=== PATIENT | female | born 1960 | race African-American/Black ===

== ENCOUNTER → 2016-12-06 | Outpatient (CLI) | payer BC ==
[2016-12-06 07:40] LABS: HEMATOCRIT 36.9 % (36.0-47.0); HEMOGLOBIN 12.6 g/dL (12.0-15.5); HGB HCT DIFFERENCE 0.9; MEAN CORPUSCULAR HEMOGLOBIN 29.6 pg (27.0-33.4); MEAN CORPUSCULAR HGB CONC 34.3 g/dL (32.0-36.0); MEAN CORPUSCULAR VOLUME 86 fl (80-97); RED BLOOD COUNT 4.26 10^6/uL (3.72-5.28); RED CELL DISTRIBUTION WIDTH 12.4 % (11.5-14.0); WHITE BLOOD COUNT 6.6 10^3/uL (4.0-10.5)
[2016-12-06 07:57] LABS: ANION GAP 12 (5-19); BLOOD UREA NITROGEN 37 mg/dL (7-20); CALCIUM 9.2 mg/dL (8.4-10.2); CARBON DIOXIDE 30 mmol/L (22-30); CHLORIDE 95 mmol/L (98-107); CREATININE RESULT 1.81 mg/dL (0.52-1.25); POTASSIUM 4.3 mmol/L (3.6-5.0); SODIUM 136.8 mmol/L (137-145)
[2016-12-06 07:58] LABS: APPEARANCE,URINE SLIGHTLY-CLOUDY; BILIRUBIN,URINE NEGATIVE (NEGATIVE); GLUCOSE, URINE 150 mg/dL (NEGATIVE); KETONES,URINE NEGATIVE (NEGATIVE); LEUKOCYTE ESTERASE,URINE TRACE (NEGATIVE); NITRITE,URINE NEGATIVE (NEGATIVE); PROTEIN,URINE 100 mg/dL (NEGATIVE); URINE SPECIFIC GRAVITY 1.012; UROBILINOGEN,URINE NEGATIVE mg/dL (<2.0)
[2016-12-06 08:36] LABS: GLUCOSE 457 mg/dL (75-110)
== END ==
LOC: OD 07:21
PROVIDERS: ATTEND Internal Medicine Nephrology
DX: I12.9 Hypertensive chronic kidney disease with stage 1 through stage 4 chronic kidney disease, or unspecified chronic kidney disease (principal); N18.3 Chronic kidney disease, stage 3 (moderate); E11.22 Type 2 diabetes mellitus with diabetic chronic kidney disease
CPT/HCPCS: 36415; 80048; 81001; 85027

== ENCOUNTER 2016-12-19 12:04 | Emergency (ER) | payer BC ==
--- NOTE | 2016-12-19 12:14 | ER Document Report ---
ED Medical Screen (RME) - General Chief Complaint: High Blood Sugar Stated Complaint: NAUSEA Time seen by provider: 12:13 Mode of Arrival: Ambulatory Information source: Patient Notes: 56-year-old female presents to ED for elevated blood sugar states she's not sure if it's her machine. She is having nausea vomiting for the last 2 days. Type II diabetic. States she's not on insulin. States they changed her medicine because her BUN/creatinine were going up. I have greeted and performed a rapid initial assessment of this patient. A comprehensive ED assessment and evaluation of the patient, analysis of test results and completion of medical decision making process will be conducted by an additional ED providers. TRAVEL OUTSIDE OF THE [place] IN LAST 30 DAYS: No - Related Data Allergies/Adverse Reactions: No Known Allergies Allergy (Unverified 03/11/13 15:59)
[2016-12-19] MEDS ORDERED: ONDANSETRON 4 MG TAB.RAPDIS PO ONE (12:15)
[2016-12-19 13:02] LABS: APPEARANCE,URINE CLOUDY; BILIRUBIN,URINE NEGATIVE (NEGATIVE); GLUCOSE, URINE NEGATIVE (NEGATIVE); KETONES,URINE NEGATIVE (NEGATIVE); LEUKOCYTE ESTERASE,URINE MODERATE (NEGATIVE); NITRITE,URINE NEGATIVE (NEGATIVE); PROTEIN,URINE 100 mg/dL (NEGATIVE); URINE SPECIFIC GRAVITY 1.014; UROBILINOGEN,URINE NEGATIVE mg/dL (<2.0)
[2016-12-19 13:07] LABS: ABSOLUTE EOSINOPHILS # (AUTO) 0.3 10^3/uL (0.0-0.6); ABSOLUTE LYMPHOCYTES (AUTO) 1.4 10^3/uL (0.5-4.7); ABSOLUTE MONOCYTES (AUTO) 0.6 10^3/uL (0.1-1.4); ABSOLUTE NEUT (AUTO) 5.5 10^3/uL (1.7-8.2); BASOPHILS % (AUTO) 0.5 % (0-2); EOSINOPHILS % (AUTO) 4.2 % (0-6); HEMATOCRIT 39.4 % (36.0-47.0); HEMOGLOBIN 13.1 g/dL (12.0-15.5); HGB HCT DIFFERENCE -0.1; MEAN CORPUSCULAR HEMOGLOBIN 29.3 pg (27.0-33.4); MEAN CORPUSCULAR HGB CONC 33.1 g/dL (32.0-36.0); MEAN CORPUSCULAR VOLUME 89 fl (80-97); MONOCYTES % (AUTO) 8.1 % (3-13); RED BLOOD COUNT 4.45 10^6/uL (3.72-5.28); RED CELL DISTRIBUTION WIDTH 12.9 % (11.5-14.0); SEGMENTED NEUTROPHILS % (AUTO) 69.2 % (42-78); WHITE BLOOD COUNT 7.9 10^3/uL (4.0-10.5)
[2016-12-19 13:23] LABS: ALANINE AMINOTRANSFERASE 25 U/L (9-52); ALBUMIN 4.3 g/dL (3.5-5.0); ALKALINE PHOSPHATASE 120 U/L (38-126); ANION GAP 15 (5-19); ASPARTATE AMINO TRANSFERASE 25 U/L (14-36); BILIRUBIN,TOTAL 0.5 mg/dL (0.2-1.3); BLOOD UREA NITROGEN 34 mg/dL (7-20); CARBON DIOXIDE 22 mmol/L (22-30); CHLORIDE 103 mmol/L (98-107); CREATININE RESULT 2.11 mg/dL (0.52-1.25); GLUCOSE 267 mg/dL (75-110); POTASSIUM 5.3 mmol/L (3.6-5.0); SODIUM 140.2 mmol/L (137-145); TOTAL PROTEIN 7.1 g/dL (6.3-8.2)
[2016-12-19] MEDS ORDERED: NORMAL SALINE 1000 ML 1,000 ML IV ONE (13:54)
--- NOTE | 2016-12-19 14:15 | ER Document Report ---
[id number] Mode of Arrival: Ambulatory Information source: Patient Notes: 56 yr old female presents with compaints of sins pressure ,headache ,nasal drainaged which is causing her ot be nauseated. pt denies any fevers or chills, states she gets theses symptoms yearly and improved with antibiotics for acute sinusitis TRAVEL OUTSIDE OF THE [place] IN LAST 30 DAYS: No - HPI Onset: Last week Onset/Duration: Persistent Quality of pain: Pressure Severity: Mild Pain Level: 1 Associated symptoms: Headache, Nausea Exacerbated by: Denies Relieved by: Denies Similar symptoms previously: Yes Recently seen / treated by doctor: No - Related Data Allergies/Adverse Reactions: No Known Allergies Allergy (Unverified 03/11/13 15:59) Past Medical History - General Information source: Patient - Social History Smoking Status: Former Smoker Cigarette use (# per day): No Chew tobacco use (# tins/day): No Smoking Education Provided: No Family History: Reviewed & Not Pertinent Patient has suicidal ideation: No Patient has homicidal ideation: No Renal/ Medical History: Denies: Hx Peritoneal Dialysis Review of Systems - Review of Systems Notes: REVIEW OF SYSTEMS: CONSTITUTIONAL : Denies fever, chills, or sweats. Denies recent illness. EENT: admit sot sinus pressure drainage CARDIOVASCULAR: Denies chest pain. Denies palpitations or racing or irregular heart beat. Denies ankle edema. RESPIRATORY: Denies cough, cold, or chest congestion. Denies shortness of breath, difficulty breathing, or wheezing. GASTROINTESTINAL: admits to nausea GENITOURINARY: Denies difficulty urinating, painful urination, burning, frequency, blood in urine, or discharge. FEMALE GENITOURINARY: Denies vaginal bleeding, heavy or abnormal periods, irregular periods. Denies vaginal discharge or odor. MUSCULOSKELETAL: Denies back or neck pain or stiffness. Denies joint pain or swelling. SKIN: Denies rash, lesions or sores. HEMATOLOGIC : Denies easy bruising or bleeding. LYMPHATIC: Denies swollen, enlarged glands. NEUROLOGICAL: Denies confusion or altered mental status. Denies passing out or loss of consciousness. Denies dizziness or lightheadedness. Denies headache. Denies weakness or paralysis or loss of use of either side. Denies problems with gait or speech. Denies sensory loss, numbness, or tingling. Denies seizures. PSYCHIATRIC: Denies anxiety or stress. Denies depression, suicidal ideation, or homicidal ideation. ALL OTHER SYSTEMS REVIEWED AND NEGATIVE. Dictation was performed using [email or web address] Textbook Time voice recognition software PHYSICAL EXAMINATION: GENERAL: Well-appearing, well-nourished and in no acute distress. HEAD: Atraumatic, normocephalic. EYES: Pupils equal round and reactive to light, extraocular movements intact, conjunctiva are normal. ENT: Nares patent, oropharynx clear without exudates. Moist mucous membranes. NECK: Normal range of motion, supple without lymphadenopathy LUNGS: Breath sounds clear to auscultation bilaterally and equal. No wheezes rales or rhonchi. HEART: Regular rate and rhythm without murmurs ABDOMEN: Soft, nontender, nondistended abdomen. No guarding, no rebound. No masses appreciated. Female : deferred Musculoskeletal: Normal range of motion, no pitting or edema. No cyanosis. NEUROLOGICAL: Cranial nerves grossly intact. Normal speech, normal gait. Normal sensory, motor exams PSYCH: Normal mood, normal affect. SKIN: Warm, Dry, normal turgor, no rashes or lesions noted. Physical Exam - Vital signs Vitals: Temp Pulse Resp BP Pulse Ox 98.0 F 97 18 157/97 H 99 12/19/16 12:11 12/19/16 12:11 12/19/16 12:11 12/19/16 12:11 12/19/16 12:11 Course - Re-evaluation Re-evalutation: 12/19/16 15:04 Patient's made aware that her chronic kidney disease is worsening, multiple attempts to place IV failed and IV access blue, patient does not wish for any further IV placements, I will have her hydrate orally at home and treat her for her sinus infection with the understanding that she must return immediately if there is any worsening concerns. 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 The patient and I have discussed the diagnosis and risks, and we agree with discharging home with close follow-up with the understanding that symptoms and presentations can change. We also discussed returning to the Emergency Department immediately if new or worsening symptoms occur. We have discussed the symptoms which are most concerning (e.g., changing or worsening symptoms, new numbness or weakness, vomiting, fever) that necessitate immediate return. - Vital Signs Vital signs: Temp Pulse Resp BP Pulse Ox 98.4 F 88 18 198/99 H 99 12/19/16 15:40 12/19/16 15:40 12/19/16 15:40 12/19/16 15:40 12/19/16 15:40 - Laboratory Result Diagrams: 12/19/16 12:40 12/19/16 12:40 Laboratory results interpreted by me: 12/19/16 12/19/16 12/19/16 12:24 12:40 12:40 Potassium 5.3 H BUN 34 H Creatinine 2.11 H Est GFR ( Amer) 30 L Est GFR (Non-Af Amer) 24 L Glucose 267 H POC Glucose 264 H Urine Protein 100 H Ur Leukocyte Esterase MODERATE H Discharge - Discharge Clinical Impression: CKD (chronic kidney disease) Qualifiers: Chronic kidney disease stage: stage 2 (mild) Qualified Code(s): N18.2 - Chronic kidney disease, stage 2 (mild) Sinusitis Qualifiers: Sinusitis location: frontal Chronicity: acute Recurrence: recurrent Qualified Code(s): J01.11 - Acute recurrent frontal sinusitis Condition: Stable Disposition: HOME, SELF-CARE Instructions: Sinusitis ([facility]) Additional Instructions: Follow up with your physician tomorrow for further care or return to the ED IMMEDIATELY if symptoms worsen or new concerns occur Prescriptions: Amoxicillin 875 mg PO BID #20 tablet Ondansetron [Zofran Odt 4 mg Tablet] 1 - 2 tab PO Q4H PRN #15 tab.rapdis PRN Reason: For Nausea/Vomiting Referrals: [Primary Care Provider] - Follow up as needed
[2016-12-19 15:53] VITALS: BP 198/99
== END 2016-12-19 15:51 | disposition home or self-care (01) ==
LOC: ER 12:04
DX: R51 Headache (principal); R09.89 Other specified symptoms and signs involving the circulatory and respiratory systems; R11.0 Nausea; Z87.891 Personal history of nicotine dependence; N18.2 Chronic kidney disease, stage 2 (mild)
CPT/HCPCS: 99284; 36415; 82962; 85025; 80053; 81001; S0119; J7030

== ENCOUNTER → 2017-01-06 | Outpatient (CLI) | payer BC ==
[2017-01-06 07:53] LABS: APPEARANCE,URINE SLIGHTLY-CLOUDY; BILIRUBIN,URINE NEGATIVE (NEGATIVE); GLUCOSE, URINE NEGATIVE (NEGATIVE); KETONES,URINE NEGATIVE (NEGATIVE); LEUKOCYTE ESTERASE,URINE SMALL (NEGATIVE); NITRITE,URINE NEGATIVE (NEGATIVE); PROTEIN,URINE 30 mg/dL (NEGATIVE); UROBILINOGEN,URINE NEGATIVE mg/dL (<2.0)
[2017-01-06 07:54] LABS: HEMATOCRIT 38.3 % (36.0-47.0); HEMOGLOBIN 12.7 g/dL (12.0-15.5); HGB HCT DIFFERENCE -0.2; MEAN CORPUSCULAR HGB CONC 33.2 g/dL (32.0-36.0); MEAN CORPUSCULAR VOLUME 87 fl (80-97); RED BLOOD COUNT 4.38 10^6/uL (3.72-5.28); RED CELL DISTRIBUTION WIDTH 12.7 % (11.5-14.0); WHITE BLOOD COUNT 8.3 10^3/uL (4.0-10.5)
[2017-01-06 08:15] LABS: ANION GAP 13 (5-19); BLOOD UREA NITROGEN 44 mg/dL (7-20); CALCIUM 9.6 mg/dL (8.4-10.2); CARBON DIOXIDE 21 mmol/L (22-30); CHLORIDE 107 mmol/L (98-107); CREATININE RESULT 2.02 mg/dL (0.52-1.25); GLUCOSE 184 mg/dL (75-110); MAGNESIUM 1.6 mg/dL (1.6-2.3); POTASSIUM 4.9 mmol/L (3.6-5.0); SODIUM 140.5 mmol/L (137-145)
[2017-01-07 11:38] LABS: CREATININE URINE 62.1 mg/dL (Not Estab.)
== END ==
LOC: OD 06:57
PROVIDERS: ATTEND Internal Medicine Nephrology
DX: I12.9 Hypertensive chronic kidney disease with stage 1 through stage 4 chronic kidney disease, or unspecified chronic kidney disease (principal); N18.3 Chronic kidney disease, stage 3 (moderate); E11.9 Type 2 diabetes mellitus without complications; R80.9 Proteinuria, unspecified
CPT/HCPCS: 36415; 80048; 81001; 82570; 83735; 84156; 84443; 85027

== ENCOUNTER → 2017-05-23 | Outpatient (CLI) | payer BC ==
--- NOTE | 2017-05-23 13:56 | WOMENS IMAGING REPORT ---
EXAM DESCRIPTION: LEFT DIAGNOSTIC MAMMO W/CAD COMPLETED DATE/TIME: 05/23/2017 9:20 am REASON FOR STUDY: N63, BREAST LUMP N63 UNSPECIFIED LUMP IN BREAST COMPARISON: Multiple since 2009, most recently 05/08/2017 TECHNIQUE: Cone compression craniocaudal and mediolateral oblique images of the breast recorded with digital acquisition. Left whole breast 90 mediolateral and craniocaudad mammograms LIMITATIONS: None. FINDINGS: BREAST: Left MASSES: No suspicious masses. CALCIFICATIONS: No new or suspicious calcifications. ARCHITECTURAL DISTORTION: None. DEVELOPING DENSITY: None. ASYMMETRY: None noted. OTHER: No other significant findings. Read with the assistance of CAD. .[facility] - R2 Cenova Version 1.3 .[facility] Imaging - R2 Cenova Version 1.3 .[facility] - R2 Cenova Version 2.4 .[facility] [place] - R2 Cenova Version 2.4 .[facility] - R2 Arabic Linguist Version 9.2 IMPRESSION: No mammographic evidence for malignancy left breast BREAST DENSITY: c. The breasts are heterogeneously dense, which may obscure small masses. BIRAD: 1 Negative. RECOMMENDATION: RECOMMENDED FOLLOW UP: Please continue bilateral screening mammography in April 2018. Please consider screening tomosynthesis given heterogeneously dense tissue. SPECIFIC INTERVENTION/IMAGING/CONSULTATION RECOMMENDED:No additional intervention/ imaging/consultati on needed at this time. COMMUNICATION:Patient notified by letter COMMENT: The patient has been notified of the results by letter per SA requirements. Additional no tification policies are in place for contacting patient with suspicious or incomplete findings. Quality ID #[id number]: The [employer] recommends an annual screening mammogram for women aged 40 years or over. This facility utilizes a reminder system to ensure that all patients receive reminder letters, and/or direct phone calls for appointments. This includes reminders for routine scr eening mammograms, diagnostic mammograms, or other Breast Imaging Interventions when appropriate. Th is patient will be placed in the appropriate reminder system. The [employer] (ACR) has developed recommendations for screening MRI of the breast s in certain patient populations, to be used in conjunction with mammography. Breast MRI surveillanc e may be appropriate for women with more than 20% lifetime risk of developing breast cancer as deter mined by genetic testing, significant family history of the disease, or history of mantle radiation f or Hodgkins Disease. ACR Practice Guidelines 2008. TECHNICAL DOCUMENTATION: FINDING NUMBER: (1) ASSESSMENT: (1) JOB ID: [id number] [employer]- All Rights Reserved
== END ==
LOC: WI 08:15
PROVIDERS: ATTEND Internal Medicine Geriatric Medicine
DX: N63 Unspecified lump in breast (principal)
CPT/HCPCS: G0206-52

== ENCOUNTER 2017-07-18 15:31 | Day surgery (SDC) | payer BC ==
[2017-07-18] MEDS ORDERED: NALOXONE HCL INJ/PF 0.4 MG/1 ML SDV ONE (15:32)
[2017-07-18] MEDS ORDERED: FLUMAZENIL INJ 0.5 MG/5 ML VIAL ONE (15:33)
[2017-07-18] MEDS ORDERED: EPINEPHRINE INJ 1 MG/10 ML DISP.SYRIN ONE (15:33)
[2017-07-18] MEDS ORDERED: GLUCAGON,HUMAN RECOMB 1 MG INJ ONE (15:33)
[2017-07-18] MEDS ORDERED: FENTANYL CITRATE INJ/PF 100 MCG/2 ML AMPUL ONE (15:33)
[2017-07-18] MEDS: MIDAZOLAM 2 MG/2 ML INJ ONE ×2 (17:04→17:10)
--- NOTE | 2017-07-18 17:36 | PDOC DISCHARGE SUMMARY ---
Discharge Summary (SDC) - Discharge Final Diagnosis: Colon polyps Condition: Stable Treatment or Instructions: none Referrals: AZALIA FUENTES MD [Primary Care Provider] - Discharge Diet: As Tolerated Discharge Activity: Activity As Tolerated Report the Following to Your Physician Immediately: Shortness of Breath, Vomiting, Increase in Pain, Warmth, Increased Soreness
--- NOTE | 2017-07-18 18:07 | OPERATIVE REPORT E ---
Operative Report NAME: DANIEL BLANC : 1960 AGE: 57Y DATE OF SURGERY: 07/18/2017 ROOM: PREOPERATIVE DIAGNOSIS: Colon cancer screening. POSTOPERATIVE DIAGNOSES: 1. Transverse colon polyps. 2. Internal hemorrhoids. OPERATION: Colonoscopy with polypectomy. SURGEON: OZIEL YING M.D. MEDICATIONS: Versed 4 mg and Fentanyl 100 mcg IV push. TISSUE REMOVED: Colon polyp. PROCEDURE: After informed consent was obtained from the patient, conscious sedation was achieved. The colonoscope was inserted into the rectum and advanced to the cecum. The appendiceal orifice and terminal ileum were both identified. The cecal mucosa was normal. The ascending, transverse, descending and sigmoid colon mucosa were normal except for two 4 mm polyps removed with a cold snare. Rectum was normal except for internal hemorrhoids. She tolerated the procedure well. PLAN: Await pathology. Follow up colonoscopy in 5 years if polyps are adenomatous. DICTATING PHYSICIAN: OZIEL YING M.D. [id number] PHY#: [id number] ID: [id number] JOB#: [id number] ACCT: [id number] cc:AZALIA FUENTES M.D., PETER A. M.D. > MTDD
[2017-07-18 18:28] VITALS: BP 110/70
== END 2017-07-18 18:28 | disposition home or self-care (01) ==
LOC: END 15:31
PROVIDERS: ATTEND Internal Medicine Gastroenterology
PROC: 0DBL8ZX Excision of Transverse Colon, Via Natural or Artificial Opening Endoscopic, Diagnostic (ICD-10-PCS; principal; 2017-07-18 16:00)
DX: Z12.11 Encounter for screening for malignant neoplasm of colon (principal); K64.8 Other hemorrhoids; K52.9 Noninfective gastroenteritis and colitis, unspecified; D12.3 Benign neoplasm of transverse colon; D64.9 Anemia, unspecified; E11.9 Type 2 diabetes mellitus without complications; K21.9 Gastro-esophageal reflux disease without esophagitis; I10 Essential (primary) hypertension; E66.9 Obesity, unspecified; E78.00 Pure hypercholesterolemia, unspecified; Z79.84 Long term (current) use of oral hypoglycemic drugs; Z79.899 Other long term (current) drug therapy; Z68.42 Body mass index [BMI] 45.0-49.9, adult
CPT/HCPCS: 45385; 82962; 88305 ×2; 88312 ×2; J2250; J0171; J3010; J1610; J2310; J3490

== ENCOUNTER → 2017-10-26 | Outpatient (CLI) | payer BC ==
[2017-10-26 05:16] LABS: ABSOLUTE BASOPHILS # (AUTO) 0.1 10^3/uL (0.0-0.2); ABSOLUTE EOSINOPHILS # (AUTO) 0.5 10^3/uL (0.0-0.6); ABSOLUTE LYMPHOCYTES (AUTO) 1.5 10^3/uL (0.5-4.7); ABSOLUTE MONOCYTES (AUTO) 0.7 10^3/uL (0.1-1.4); ABSOLUTE NEUT (AUTO) 3.1 10^3/uL (1.7-8.2); BASOPHILS % (AUTO) 1.1 % (0-2); HEMATOCRIT 35.9 % (36.0-47.0); HEMOGLOBIN 12.4 g/dL (12.0-15.5); HGB HCT DIFFERENCE 1.3; LYMPHOCYTES % (AUTO) 26.2 % (13-45); MEAN CORPUSCULAR HEMOGLOBIN 30.6 pg (27.0-33.4); MEAN CORPUSCULAR HGB CONC 34.5 g/dL (32.0-36.0); MEAN CORPUSCULAR VOLUME 89 fl (80-97); MONOCYTES % (AUTO) 11.1 % (3-13); RED BLOOD COUNT 4.05 10^6/uL (3.72-5.28); RED CELL DISTRIBUTION WIDTH 13.6 % (11.5-14.0); SEGMENTED NEUTROPHILS % (AUTO) 53.6 % (42-78); WHITE BLOOD COUNT 5.9 10^3/uL (4.0-10.5)
[2017-10-26 05:34] LABS: ALANINE AMINOTRANSFERASE 46 U/L (9-52); ALBUMIN 3.7 g/dL (3.5-5.0); ALKALINE PHOSPHATASE 133 U/L (38-126); ANION GAP 12 (5-19); ASPARTATE AMINO TRANSFERASE 29 U/L (14-36); BILIRUBIN,DIRECT 0.4 mg/dL (0.0-0.4); BILIRUBIN,TOTAL 0.4 mg/dL (0.2-1.3); BLOOD UREA NITROGEN 35 mg/dL (7-20); CALCIUM 9.2 mg/dL (8.4-10.2); CARBON DIOXIDE 26 mmol/L (22-30); CHLORIDE 106 mmol/L (98-107); CHOLESTEROL 168.73 mg/dL (0-200); CREATININE RESULT 2.04 mg/dL (0.52-1.25); Direct HDL 67 mg/dL (>40); GLUCOSE 156 mg/dL (75-110); SODIUM 143.5 mmol/L (137-145); TOTAL PROTEIN 6.7 g/dL (6.3-8.2); TRIGLYCERIDES 110 mg/dL (<150)
[2017-10-26 05:45] LABS: DIRECT LDL 79 mg/dL (<100)
== END ==
LOC: LAB 04:52
PROVIDERS: ATTEND Internal Medicine Geriatric Medicine
DX: E11.65 Type 2 diabetes mellitus with hyperglycemia (principal); I10 Essential (primary) hypertension
CPT/HCPCS: 36415; 80053; 80061; 83036; 85025

== ENCOUNTER → 2017-12-15 | Outpatient (CLI) | payer BC ==
--- NOTE | 2017-12-15 13:24 | RADIOLOGY REPORT (SQ) ---
EXAM DESCRIPTION: U/S ABDOMEN LIMITED W/O DOP COMPLETED DATE/TIME: 12/15/2017 11:53 am REASON FOR STUDY: R94.5 ABNORMAL RESULTS OF LIVER FUNCTION STUDIES R94.5 ABNORMAL RESULTS OF LIVER FUNCTION STUDIES COMPARISON: None. TECHNIQUE: Dynamic and static grayscale images acquired of the abdomen and recorded on PACS. Additio nal selected color Doppler and spectral images recorded. LIMITATIONS: Study is limited due to overlying bowel gas. FINDINGS: PANCREAS: The pancreas was incompletely visualized due to overlying bowel gas. Visualized portions of the pancreatic head demonstrated no pancreatic masses. LIVER: No masses. Echotexture normal. LIVER VASCULATURE: Normal blood flow was identified in the portal vein. GALLBLADDER: Status post cholecystectomy ULTRASOUND-DETECTED VELA'S SIGN: Negative. INTRAHEPATIC DUCTS AND COMMON DUCT: CBD and intrahepatic ducts normal caliber. No filling defects. INFERIOR VENA CAVA: Normal flow. AORTA: The abdominal aorta was incompletely visualized due to overlying bowel gas. Visualized portio ns of the proximal and mid abdominal aorta demonstrated no abdominal aneurysm. RIGHT KIDNEY: Normal size. There is a hyperechoic area in the renal cortex which I cannot exclude a s a mass. The possibility of an angio Lorenzo lipoma should be considered. CT may be of value for furth er evaluation. No hydronephrosis. No calcifications. PERITONEAL AND RIGHT PLEURAL SPACE: No ascites or effusions. OTHER: No other significant findings. IMPRESSION: Somewhat limited study as noted above. There is a hyperechoic area in the renal cortex of the right kidney which I cannot exclude as a mass. The possibility of an angiomyolipoma should be considered. CT may be of value for further evaluation. Other findings as noted above. TECHNICAL DOCUMENTATION: JOB ID: [id number] [employer]- All Rights Reserved
== END ==
LOC: RAD 11:09
PROVIDERS: ATTEND Internal Medicine Geriatric Medicine
DX: R94.5 Abnormal results of liver function studies (principal)
CPT/HCPCS: 76705

== ENCOUNTER → 2017-12-21 | Outpatient (CLI) | payer BC | LOC: OD 11:41 | PROVIDERS: ATTEND Internal Medicine Geriatric Medicine | DX: I10 Essential (primary) hypertension (principal) | CPT/HCPCS: 36415; 82565 ==

== ENCOUNTER → 2017-12-26 | Outpatient (CLI) | payer BC ==
--- NOTE | 2017-12-26 15:42 | RADIOLOGY REPORT (SQ) ---
EXAM DESCRIPTION: CT ABD/PELVIS WITH IV ORAL COMPLETED DATE/TIME: 12/26/2017 10:29 am REASON FOR STUDY: ABN FINDINGS ON ROBERT IMAGING OF OTHER SPECIFIED BODY STRUCTURE R93.8 ABNORMAL FIND INGS ON DIAGNOSTIC IMAGING OF BODY STRUCT COMPARISON: 03/11/2013 TECHNIQUE: CT scan of the abdomen and pelvis performed using helical scanning technique with dynamic intravenous contrast injection. No oral contrast. Images reviewed with lung, soft tissue, and bone windows. Reconstructed coronal and sagittal MPR images reviewed. Delayed images for evaluation of the urinary system also acquired. All images stored on PACS. All CT scanners at this facility use dose modulation, iterative reconstruction, and/or weight based d osing when appropriate to reduce radiation dose to as low as reasonably achievable (ALARA). [facility]: Dose Right [facility]: CareDose [facility]: Dose Right [facility]: Teradose 4D [facility]: Fan Pier CONTRAST TYPE AND DOSE: contrast/concentration: Isovue 300.00 mg/ml; Total Contrast Delivered: 95.0 ml; Total Saline Delivered: 72.0 ml RENAL FUNCTION: Creatinine 1.6. RADIATION DOSE: CT Rad equipment meets quality standard of care and radiation dose reduction techniq ues were employed. CTDIvol: 26.5 - 31.5 mGy. DLP: 4617 mGy-cm.. LIMITATIONS: None. FINDINGS: LOWER CHEST: No significant findings. No nodules or infiltrates. LIVER: Normal size. No masses. No dilated ducts. SPLEEN: Normal size. No focal lesions. PANCREAS: No masses. No significant calcifications. No adjacent inflammation or peripancreatic fluid collections. Pancreatic duct not dilated. GALLBLADDER: Surgically absent. ADRENAL GLANDS: No significant masses or asymmetry. RIGHT KIDNEY AND URETER: No solid masses. No significant calcifications. No hydronephrosis or hyd roureter. LEFT KIDNEY AND URETER: No solid masses. No significant calcifications. No hydronephrosis or hydr oureter. AORTA AND VESSELS: No aneurysm. RETROPERITONEUM: No retroperitoneal adenopathy, hemorrhage or masses. BOWEL AND PERITONEAL CAVITY: Status post gastric bypass. No bowel obstruction. No adenopathy, ascit es or free air. APPENDIX: Not visualized. PELVIS: No mass. No free fluid. Normal bladder. ABDOMINAL WALL: Anterior abdominal wall hernias containing fat and nondilated bowel. BONES: No acute findings. OTHER: No other significant finding. IMPRESSION: No acute findings in the abdomen or pelvis. TECHNICAL DOCUMENTATION: JOB ID: [id number] Quality ID # [id number]: Final reports with documentation of one or more dose reduction techniques (e.g., Au tomated exposure control, adjustment of the mA and/or kV according to patient size, use of iterative reconstruction technique) 2010 [employer]- All Rights Reserved
== END ==
LOC: RAD 09:11
PROVIDERS: ATTEND Internal Medicine Geriatric Medicine
DX: R93.8 Abnormal findings on diagnostic imaging of other specified body structures (principal); R94.5 Abnormal results of liver function studies
CPT/HCPCS: 74177

== ENCOUNTER → 2018-04-16 | Outpatient (CLI) | payer BC ==
[2018-04-16 10:48] LABS: CHOLESTEROL 239.43 mg/dL (0-200); TRIGLYCERIDES 174 mg/dL (<150)
[2018-04-16 10:59] LABS: DIRECT LDL 128 mg/dL (<100)
[2018-04-16 11:00] LABS: VLDL CHOLESTEROL 34.8 mg/dL (10-31)
== END ==
LOC: OD 09:11
PROVIDERS: ATTEND Internal Medicine Geriatric Medicine
DX: E11.22 Type 2 diabetes mellitus with diabetic chronic kidney disease (principal); N18.9 Chronic kidney disease, unspecified
CPT/HCPCS: 36415; 80061; 83036

== ENCOUNTER → 2018-06-07 | Outpatient (CLI) | payer BC ==
[2018-06-07 07:55] LABS: ALANINE AMINOTRANSFERASE 33 U/L (9-52); ALBUMIN 2.9 g/dL (3.5-5.0); ALKALINE PHOSPHATASE 181 U/L (38-126); ANION GAP 8 (5-19); ASPARTATE AMINO TRANSFERASE 32 U/L (14-36); BILIRUBIN,DIRECT 0.3 mg/dL (0.0-0.4); BILIRUBIN,TOTAL 0.3 mg/dL (0.2-1.3); BLOOD UREA NITROGEN 34 mg/dL (7-20); CALCIUM 8.4 mg/dL (8.4-10.2); CARBON DIOXIDE 25 mmol/L (22-30); CHLORIDE 112 mmol/L (98-107); GLUCOSE 115 mg/dL (75-110); POTASSIUM 4.4 mmol/L (3.6-5.0); SODIUM 144.8 mmol/L (137-145)
--- NOTE | 2018-06-07 12:07 | XCELERA REPORT ---
[address] [address] Lower Extremity Arterial Evaluation Name: DANIEL BLANC Age: 58 yrs Gender: Female : 1960 Patient Status: Outpatient Patient Location: [place] Study Date: 06/07/2018 08:28 AM Procedure: A color flow and duplex scan of the lower extremity arteries was performed bilaterally with velocity and waveform anaylsis. Ankle brachial indicies performed. 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 0 % stenosis. Ankle Brachial index was not obtainable due to non compressibility. Left Side Arterial Evaluation Normal velocity and triphasic waveforms noted from the Common Femoral artery to the infrageniculate vessels. 0 % stenosis. Ankle Brachial index was not obtainable due to non compressibility. Interpretation Summary No hemodynamically significant lesions in the bilateral lower extremities, on duplex imaging, at rest. Atherosclerosis may be suggested by non compressible distal arteries. : AZALIA FUENTES > Hussein Ibrahim
--- NOTE | 2018-06-07 15:04 | WOMENS IMAGING REPORT ---
EXAM DESCRIPTION: 3D SCREENING MAMMO BILAT COMPLETED DATE/TIME: 06/07/2018 10:20 am REASON FOR STUDY: BILATERAL SCREENING MAMMO 3D/Z12.31 Z12.31 ENCNTR SCREEN MAMMOGRAM FOR MALIGNANT NEOPLASM OF ELIZABETH R60.0 LOCALIZED EDEMA I10 ESSENTIAL (PRIMARY) HYPERTENSION COMPARISON: Multiple since 2009 TECHNIQUE: Standard craniocaudal and mediolateral oblique views of each breast recorded using digita l acquisition and breast tomosynthesis. LIMITATIONS: None. FINDINGS: No masses, calcifications or architectural distortion. No areas of suspicion. Read with the assistance of CAD. .[facility] - R2 Cenova Version 1.3 .[facility] Imaging - R2 Cenova Version 1.3 .[facility] - R2 Cenova Version 2.4 .[facility] [place] - R2 Cenova Version 2.4 .[facility] - R2 Ortho Assistant Version 9.2 IMPRESSION: NORMAL MAMMOGRAM. BIRADS 1. BREAST DENSITY: b. There are scattered areas of fibroglandular density. BIRAD: 1 NEGATIVE RECOMMENDATION: ROUTINE SCREENING Please continue yearly bilateral screening mammography/tomosynthesis in May 2019 COMMENT: The patient has been notified of the results by letter per MQSA requirements. Additional no tification policies are in place for contacting patient with suspicious or incomplete findings. Quality ID #[id number]: [employer] recommends an annual screening mammogram for women aged 40 years or over. This facility utilizes a reminder system to ensure that all patients receive reminder letters, and/or direct phone calls for appointments. This includes reminders for routine scr eening mammograms, diagnostic mammograms, or other Breast Imaging Interventions when appropriate. Th is patient will be placed in the appropriate reminder system. The [employer] (ACR) has developed recommendations for screening MRI of the breast s in certain patient populations, to be used in conjunction with mammography. Breast MRI surveillanc e may be appropriate for women with more than 20% lifetime risk of developing breast cancer as deter mined by genetic testing, significant family history of the disease, or history of mantle radiation f or Hodgkins Disease. ACR Practice Guidelines 2008. DBT Technology DBT is a type of tomographic mammography. With conventional mammography, overlapping breast tissue ma y make lesions difficult to detect, even with good compression. DBT uses an x-ray tube that rotates a round the breast, taking images at different angles. These images are then combined to create thin sl ices of the breast that the radiologist can view as a 3D reconstruction. The OVGuide unit can perform full-field digital mammograms (2D imaging); or DBT (3D imaging); or both, in a combination mode that quickly performs both the mammogram and the tomosynthesis scan while the breast is still compressed. PQRS 6045F: Fluoroscopic imaging is not utilized for breast tomosynthesis. TECHNICAL DOCUMENTATION: FINDING NUMBER: (1) ASSESSMENT: (1) JOB ID: [id number] [facility]- All Rights Reserved Reading location - IP/workstation name: [facility]-[email or web address]
--- NOTE | 2018-06-08 08:38 | XCELERA REPORT ---
[address] [address] Lower Extremity Venous Evaluation Name: DANIEL BLANC Age: 58 yrs Gender: Female : 1960 Patient Status: Outpatient Patient Location: [place] Study Date: 06/07/2018 08:19 AM Procedure: Color flow and duplex imaging bilaterally of the veins of the lower extremities as well as the Common Femoral veins. Reason For Study: EDEMA Ordering Physician: AZALIA FUENTES Performed By: Paloma Triplett Right Sided Venous Evaluation Normal vessel filling wall to wall, compression and augmentation as well as Colour flow down to the infrageniculate veins. Left Sided Venous Evaluation Normal vessel filling wall to wall, compression and augmentation as well as Colour flow down to the infrageniculate veins. Interpretation Summary No duplex evidence of DVT or obstruction in the bilateral lower extremities. : AZALIA FUENTES > Hussein Ibrahim
== END ==
LOC: WI 07:54
PROVIDERS: ATTEND Internal Medicine Geriatric Medicine
DX: Z12.31 Encounter for screening mammogram for malignant neoplasm of breast (principal); R60.0 Localized edema; I10 Essential (primary) hypertension
CPT/HCPCS: 36415; 77063; 77067; 80053; 93925; 93970

== ENCOUNTER → 2018-08-23 | Outpatient (CLI) | payer BC ==
[2018-08-23 14:43] LABS: ABSOLUTE EOSINOPHILS # (AUTO) 0.5 10^3/uL (0.0-0.6); ABSOLUTE LYMPHOCYTES (AUTO) 1.3 10^3/uL (0.5-4.7); ABSOLUTE MONOCYTES (AUTO) 0.5 10^3/uL (0.1-1.4); ABSOLUTE NEUT (AUTO) 5.2 10^3/uL (1.7-8.2); BASOPHILS % (AUTO) 0.5 % (0-2); EOSINOPHILS % (AUTO) 6.5 % (0-6); HEMATOCRIT 33.8 % (36.0-47.0); HEMOGLOBIN 11.8 g/dL (12.0-15.5); LYMPHOCYTES % (AUTO) 17.3 % (13-45); MEAN CORPUSCULAR HGB CONC 34.8 g/dL (32.0-36.0); MEAN CORPUSCULAR VOLUME 86 fl (80-97); MONOCYTES % (AUTO) 6.4 % (3-13); PLATELET COUNT 197 10^3/uL (150-450); RED BLOOD COUNT 3.93 10^6/uL (3.72-5.28); RED CELL DISTRIBUTION WIDTH 12.8 % (11.5-14.0); SEGMENTED NEUTROPHILS % (AUTO) 69.3 % (42-78); TOTAL CELLS COUNTED % (AUTO) 100 %; WHITE BLOOD COUNT 7.5 10^3/uL (4.0-10.5)
[2018-08-23 15:04] LABS: ALANINE AMINOTRANSFERASE 35 U/L (9-52); ALKALINE PHOSPHATASE 238 U/L (38-126); ANION GAP 8 (5-19); ASPARTATE AMINO TRANSFERASE 33 U/L (14-36); BILIRUBIN,DIRECT 0.3 mg/dL (0.0-0.4); BILIRUBIN,TOTAL 0.3 mg/dL (0.2-1.3); BLOOD UREA NITROGEN 36 mg/dL (7-20); CARBON DIOXIDE 24 mmol/L (22-30); CHLORIDE 108 mmol/L (98-107); CHOLESTEROL 273.12 mg/dL (0-200); GLUCOSE 105 mg/dL (75-110); POTASSIUM 4.5 mmol/L (3.6-5.0); SODIUM 140.2 mmol/L (137-145); TOTAL PROTEIN 6.2 g/dL (6.3-8.2); TRIGLYCERIDES 210 mg/dL (<150)
[2018-08-23 15:15] LABS: DIRECT LDL 142 mg/dL (<100)
== END ==
LOC: OD 13:54
PROVIDERS: ATTEND Internal Medicine Geriatric Medicine
DX: N18.6 End stage renal disease (principal)
CPT/HCPCS: 36415; 80053; 80061; 85025

== ENCOUNTER 2018-08-24 16:22 | Emergency (ER) | payer BC ==
[2018-08-24] MEDS ORDERED: AMLODIPINE BESYLATE 5 MG TABLET PO ONE (18:29)
--- NOTE | 2018-08-24 18:42 | ER Document Report ---
ED General - General Chief Complaint: High Blood Pressure Stated Complaint: HIGH BLOOD PRESSURE Time Seen by Provider: 08/24/18 17:17 Notes: Patient is a 58-year-old female with hypertension that presents to the emergency department for chief complaint of elevated blood pressure. Patient states that she bought a home blood pressure cuff today, and it measured a blood pressure in the 200s, systolic she called her primary care physician who recommended she come to the emergency department. She states she did take her scheduled blood pressure medications today, she did just see her primary yesterday, and had a blood pressure over 200 in the office, she was given clonidine to help bring it down, and then was discharged from the office to home. She does have chronic kidney disease, and diabetes, and is concerned about her blood pressure. She denies having any headaches, blurred vision, nausea, vomiting, numbness, tingling or weakness or chest pain. She has no specific complaints other than her blood pressure is high now. Past Medical History: Diabetes, hypertension, chronic kidney disease Past Surgical History: Denies major surgical history Social History: Denies tobacco, alcohol or drug use. Family History: Reviewed and noncontributory for presenting illness Allergies: Reviewed, see documented allergy list. REVIEW OF SYSTEMS: Unless otherwise stated in this report the patient's positive and negative responses for review of systems for constitutional, eyes, ENT, cardiovascular, respiratory, gastrointestinal, neurological, genitourinary, musculoskeletal, and integumentary systems and related systems to the presenting problem are either as stated in the HPI or were not pertinent or were negative for the symptoms and/or complaints related to the presenting medical problem. PHYSICAL EXAMINATION: Vital signs reviewed, nursing noted reviewed. GENERAL: Obese, well-appearing, well-nourished and in no acute distress. HEAD: Atraumatic, normocephalic. EYES: Eyes appear normal, extraocular movements intact, sclera anicteric, conjunctiva are normal. ENT: nares patent, oropharynx clear without exudates. Moist mucous membranes. NECK: Normal range of motion, supple without lymphadenopathy LUNGS: Breath sounds clear to auscultation bilaterally and equal. No wheezes rales or rhonchi. HEART: Regular rate and rhythm without murmurs ABDOMEN: Soft, nontender, normoactive bowel sounds. No rebound, guarding, or rigidity. No masses appreciated. EXTREMITIES: Nontender, good range of motion, 1+ bilateral pedal edema equal to the lower extremities. NEUROLOGICAL: No focal neurological deficits. Moves all extremities spontaneously Motor and sensory grossly intact on exam. PSYCH: Normal mood, normal affect. SKIN: Warm, Dry, normal turgor, no rashes or lesions noted on exposed skin TRAVEL OUTSIDE OF THE [place] IN LAST 30 DAYS: No - Related Data Allergies/Adverse Reactions: No Known Allergies Allergy (Verified 08/24/18 16:26) Past Medical History - Social History Smoking Status: Never Smoker Chew tobacco use (# tins/day): No Frequency of alcohol use: None Drug Abuse: None Family History: Reviewed & Not Pertinent Patient has suicidal ideation: No Patient has homicidal ideation: No - Past Medical History Cardiac Medical History: Reports: Hx Hypercholesterolemia, Hx Hypertension Denies: Hx Coronary Artery Disease, Hx Heart Attack Pulmonary Medical History: Denies: Hx Asthma, Hx Bronchitis, Hx COPD, Hx Pneumonia Neurological Medical History: Denies: Hx Cerebrovascular Accident, Hx Seizures Endocrine Medical History: Reports: Hx Diabetes Mellitus Type 2 Renal/ Medical History: Denies: Hx Peritoneal Dialysis GI Medical History: Reports: Hx Hiatal Hernia Musculoskeletal Medical History: Reports Hx Arthritis Psychiatric Medical History: Reports: Hx Depression Past Surgical History: Reports: Hx Abdominal Surgery - hernia, Hx Bowel Surgery - gastric, Hx Section, Hx Cholecystectomy. Denies: Hx Hysterectomy - Immunizations Hx Diphtheria, Pertussis, Tetanus Vaccination: Yes Physical Exam - Vital signs Vitals: Temp Pulse Resp BP Pulse Ox 98.6 F 93 18 152/93 H 97 08/24/18 17:04 08/24/18 17:04 08/24/18 17:04 08/24/18 17:04 08/24/18 17:04 Course - Re-evaluation Re-evalutation: Patient seen and examined vital signs reviewed. Patint was evaluated and treated as appropriate for the patient's presenting symptoms and complaint, with consideration of any critical or life threatening conditions that may be associated with their obtained history and exam as noted above. Patient was treated with amlodipine 5 mg p.o. The patient was re-evaluated and was stable, no complaints. Evaluation was most consistent with asymptomatic hypertension, I discussed the case with the patient's primary care physician, who agreed to start her on amlodipine 5 mg p.o., she is educated on how to use her home blood pressure cuff , and to follow-up with the [facility] care on Monday, patient was agreeable. Plan of care was discussed with the patient at this point, after careful consideration I feel that that patient can be discharged from the emergency department, the patient was educated treatments and reasons to return to the emergency department based on their presumed diagnosis as noted above, they were advised to followup with a primary care physician in 2-3 days. Patient was agreeable to plan of care. *Note is created using voice recognition software and may contain spelling, syntax or grammatical errors. - Vital Signs Vital signs: Temp Pulse Resp BP Pulse Ox 98.5 F 88 20 142/86 H 98 08/24/18 19:30 08/24/18 19:30 08/24/18 19:30 08/24/18 19:30 08/24/18 19:30 Discharge - Discharge Clinical Impression: Hypertension Condition: Stable Disposition: HOME, SELF-CARE Instructions: High Blood Pressure, Requiring Treatment ([facility]) Additional Instructions: Start a new medication, and follow-up with Dr. Fuentes on monday. Prescriptions: Amlodipine Besylate 5 mg PO DAILY #30 tab Referrals: AZALIA UFENTES MD [Primary Care Provider] - Follow up in 3-5 days
[2018-08-24 19:33] VITALS: BP 142/86
== END 2018-08-24 19:33 | disposition home or self-care (01) ==
LOC: ER 16:22
DX: I10 Essential (primary) hypertension (principal); E11.9 Type 2 diabetes mellitus without complications; Z90.49 Acquired absence of other specified parts of digestive tract; E78.00 Pure hypercholesterolemia, unspecified
CPT/HCPCS: 99283

== ENCOUNTER → 2018-11-05 | Outpatient (CLI) | payer BC ==
[2018-11-05 10:07] LABS: HEMATOCRIT 32.7 % (36.0-47.0); HEMOGLOBIN 11.2 g/dL (12.0-15.5); MEAN CORPUSCULAR HEMOGLOBIN 29.9 pg (27.0-33.4); MEAN CORPUSCULAR HGB CONC 34.2 g/dL (32.0-36.0); MEAN CORPUSCULAR VOLUME 87 fl (80-97); PLATELET COUNT 166 10^3/uL (150-450); RED BLOOD COUNT 3.74 10^6/uL (3.72-5.28); RED CELL DISTRIBUTION WIDTH 12.5 % (11.5-14.0); WHITE BLOOD COUNT 5.6 10^3/uL (4.0-10.5)
[2018-11-05 10:16] LABS: APPEARANCE,URINE CLEAR; BILIRUBIN,URINE NEGATIVE (NEGATIVE); COLOR,URINE STRAW; GLUCOSE, URINE NEGATIVE (NEGATIVE); KETONES,URINE NEGATIVE (NEGATIVE); LEUKOCYTE ESTERASE,URINE NEGATIVE (NEGATIVE); NITRITE,URINE NEGATIVE (NEGATIVE); PROTEIN,URINE 100 mg/dL (NEGATIVE); UROBILINOGEN,URINE NEGATIVE mg/dL (<2.0)
[2018-11-05 10:31] LABS: ANION GAP 11 (5-19); BLOOD UREA NITROGEN 53 mg/dL (7-20); CALCIUM 8.9 mg/dL (8.4-10.2); CARBON DIOXIDE 24 mmol/L (22-30); CHLORIDE 107 mmol/L (98-107); GLUCOSE 136 mg/dL (75-110); POTASSIUM 4.6 mmol/L (3.6-5.0); SODIUM 141.8 mmol/L (137-145)
[2018-11-05 10:43] LABS: URINE CREATININE 49.7 mg/dL (15-278)
[2018-11-05 10:44] LABS: FREE T3 2.42 pg/mL (2.77-5.27); FREE T4 (FREE THYROXINE) 0.84 ng/dL (0.78-2.19)
[2018-11-05 10:48] LABS: UR PRO/CREAT RATIO RESULT 5.1 mg/mg (0.0-0.2)
[2018-11-05 10:57] LABS: THYROID STIMULATING HORMONE 4.9 uIU/mL (0.47-4.68)
== END ==
LOC: OD 09:27
PROVIDERS: ATTEND Internal Medicine Nephrology
DX: E11.22 Type 2 diabetes mellitus with diabetic chronic kidney disease (principal); N18.4 Chronic kidney disease, stage 4 (severe); R80.9 Proteinuria, unspecified; E66.9 Obesity, unspecified
CPT/HCPCS: 36415; 80048; 81001; 82570; 83735; 84156; 84439; 84443; 84481; 85027

== ENCOUNTER → 2018-12-24 | Outpatient (CLI) | payer BC ==
[2018-12-24 10:41] LABS: HEMATOCRIT 32.8 % (36.0-47.0); HEMOGLOBIN 11.3 g/dL (12.0-15.5); MEAN CORPUSCULAR HEMOGLOBIN 30.1 pg (27.0-33.4); MEAN CORPUSCULAR HGB CONC 34.6 g/dL (32.0-36.0); MEAN CORPUSCULAR VOLUME 87 fl (80-97); PLATELET COUNT 161 10^3/uL (150-450); RED BLOOD COUNT 3.77 10^6/uL (3.72-5.28); WHITE BLOOD COUNT 5.7 10^3/uL (4.0-10.5)
[2018-12-24 10:48] LABS: APPEARANCE,URINE CLEAR; BILIRUBIN,URINE NEGATIVE (NEGATIVE); COLOR,URINE YELLOW; GLUCOSE, URINE NEGATIVE (NEGATIVE); KETONES,URINE NEGATIVE (NEGATIVE); LEUKOCYTE ESTERASE,URINE NEGATIVE (NEGATIVE); NITRITE,URINE NEGATIVE (NEGATIVE); PROTEIN,URINE >=500 mg/dL (NEGATIVE); URINE SPECIFIC GRAVITY 1.009; UROBILINOGEN,URINE NEGATIVE mg/dL (<2.0)
[2018-12-24 11:18] LABS: UR PRO/CREAT RATIO RESULT 6.5 mg/mg (0.0-0.2); URINE PROTEIN 360.2 mg/dL (<12)
[2018-12-24 11:18] LABS: ALBUMIN 3.2 g/dL (3.5-5.0); ANION GAP 8 (5-19); BLOOD UREA NITROGEN 42 mg/dL (7-20); CALCIUM 8.4 mg/dL (8.4-10.2); CARBON DIOXIDE 25 mmol/L (22-30); CHLORIDE 107 mmol/L (98-107); GLUCOSE 114 mg/dL (75-110); POTASSIUM 4.3 mmol/L (3.6-5.0); SODIUM 139.6 mmol/L (137-145)
== END ==
LOC: OD 09:29
PROVIDERS: ATTEND Internal Medicine Nephrology
DX: I12.9 Hypertensive chronic kidney disease with stage 1 through stage 4 chronic kidney disease, or unspecified chronic kidney disease (principal); N18.3 Chronic kidney disease, stage 3 (moderate); E11.22 Type 2 diabetes mellitus with diabetic chronic kidney disease; R80.9 Proteinuria, unspecified
CPT/HCPCS: 36415; 80048; 81001; 82040; 82570; 84156; 85027

== ENCOUNTER → 2019-05-24 | Outpatient (CLI) | payer BC ==
[2019-05-24 14:01] LABS: HEMATOCRIT 34.8 % (36.0-47.0); MEAN CORPUSCULAR HGB CONC 34.5 g/dL (32.0-36.0); MEAN CORPUSCULAR VOLUME 87 fl (80-97); PLATELET COUNT 168 10^3/uL (150-450); RED BLOOD COUNT 4.01 10^6/uL (3.72-5.28); RED CELL DISTRIBUTION WIDTH 12.9 % (11.5-14.0); WHITE BLOOD COUNT 6.9 10^3/uL (4.0-10.5)
[2019-05-24 14:19] LABS: ANION GAP 12 (5-19); BLOOD UREA NITROGEN 56 mg/dL (7-20); CALCIUM 8.7 mg/dL (8.4-10.2); CARBON DIOXIDE 21 mmol/L (22-30); CHLORIDE 106 mmol/L (98-107); GLUCOSE 151 mg/dL (75-110); POTASSIUM 4.4 mmol/L (3.6-5.0); SODIUM 138.8 mmol/L (137-145)
[2019-05-24 14:21] LABS: APPEARANCE,URINE SLIGHTLY-CLOUDY; BILIRUBIN,URINE NEGATIVE (NEGATIVE); COLOR,URINE STRAW; GLUCOSE, URINE NEGATIVE (NEGATIVE); KETONES,URINE NEGATIVE (NEGATIVE); LEUKOCYTE ESTERASE,URINE NEGATIVE (NEGATIVE); NITRITE,URINE NEGATIVE (NEGATIVE); PROTEIN,URINE 100 mg/dL (NEGATIVE); URINE SPECIFIC GRAVITY 1.009; UROBILINOGEN,URINE NEGATIVE mg/dL (<2.0)
[2019-05-24 14:44] LABS: UR PRO/CREAT RATIO RESULT 4.8 mg/mg (0.0-0.2); URINE PROTEIN 228.9 mg/dL (<12)
== END ==
LOC: OD 13:22
PROVIDERS: ATTEND Internal Medicine Nephrology
DX: N18.3 Chronic kidney disease, stage 3 (moderate) (principal); R80.9 Proteinuria, unspecified; E11.9 Type 2 diabetes mellitus without complications; I12.9 Hypertensive chronic kidney disease with stage 1 through stage 4 chronic kidney disease, or unspecified chronic kidney disease
CPT/HCPCS: 36415; 80048; 81001; 82570; 84156; 85027

== ENCOUNTER → 2019-08-10 | Outpatient (CLI) | payer BC ==
[2019-08-10 08:43] LABS: ABSOLUTE BASOPHILS # (AUTO) 0.1 10^3/uL (0.0-0.2); ABSOLUTE EOSINOPHILS # (AUTO) 0.9 10^3/uL (0.0-0.6); ABSOLUTE LYMPHOCYTES (AUTO) 1.4 10^3/uL (0.5-4.7); ABSOLUTE MONOCYTES (AUTO) 0.6 10^3/uL (0.1-1.4); ABSOLUTE NEUT (AUTO) 4.8 10^3/uL (1.7-8.2); BASOPHILS % (AUTO) 0.7 % (0-2); EOSINOPHILS % (AUTO) 11.1 % (0-6); HEMATOCRIT 36.5 % (36.0-47.0); HEMOGLOBIN 12.2 g/dL (12.0-15.5); LYMPHOCYTES % (AUTO) 18.6 % (13-45); MEAN CORPUSCULAR HEMOGLOBIN 29.7 pg (27.0-33.4); MEAN CORPUSCULAR HGB CONC 33.3 g/dL (32.0-36.0); MEAN CORPUSCULAR VOLUME 89 fl (80-97); MONOCYTES % (AUTO) 7.6 % (3-13); PLATELET COUNT 182 10^3/uL (150-450); RED CELL DISTRIBUTION WIDTH 13.2 % (11.5-14.0); TOTAL CELLS COUNTED % (AUTO) 100 %; WHITE BLOOD COUNT 7.7 10^3/uL (4.0-10.5)
[2019-08-10 08:58] LABS: APPEARANCE,URINE CLEAR; BILIRUBIN,URINE NEGATIVE (NEGATIVE); COLOR,URINE STRAW; GLUCOSE, URINE NEGATIVE (NEGATIVE); KETONES,URINE NEGATIVE (NEGATIVE); LEUKOCYTE ESTERASE,URINE NEGATIVE (NEGATIVE); NITRITE,URINE NEGATIVE (NEGATIVE); PROTEIN,URINE 100 mg/dL (NEGATIVE); URINE SPECIFIC GRAVITY 1.011; UROBILINOGEN,URINE NEGATIVE mg/dL (<2.0)
[2019-08-10 09:02] LABS: ANION GAP 11 (5-19); BLOOD UREA NITROGEN 60 mg/dL (7-20); CALCIUM 8.3 mg/dL (8.4-10.2); CARBON DIOXIDE 24 mmol/L (22-30); CHLORIDE 107 mmol/L (98-107); GLUCOSE 138 mg/dL (75-110); IRON(TIBC) 98.6 ug/dL (37-170); PHOSPHORUS 5.7 mg/dL (2.5-4.5); POTASSIUM 3.6 mmol/L (3.6-5.0)
[2019-08-10 09:21] LABS: URINE CREATININE 54.1 mg/dL (15-278)
[2019-08-10 09:24] LABS: UR PRO/CREAT RATIO RESULT 6.3 mg/mg (0.0-0.2); URINE PROTEIN 342.3 mg/dL (<12)
== END ==
LOC: OD 08:16
PROVIDERS: ATTEND Physician Assistant Medical
DX: N17.9 Acute kidney failure, unspecified (principal); E11.22 Type 2 diabetes mellitus with diabetic chronic kidney disease; I12.9 Hypertensive chronic kidney disease with stage 1 through stage 4 chronic kidney disease, or unspecified chronic kidney disease; N18.3 Chronic kidney disease, stage 3 (moderate); R80.9 Proteinuria, unspecified; R60.9 Edema, unspecified
CPT/HCPCS: 36415; 80048; 81001; 82570; 82728; 83540; 83550; 83970; 84100; 84156; 85025

== ENCOUNTER → 2019-09-02 | Outpatient (CLI) | payer BC ==
--- NOTE | 2019-09-02 13:23 | RADIOLOGY REPORT (SQ) ---
EXAM DESCRIPTION: CT ABD/PELVIS NO ORAL OR IV COMPLETED DATE/TIME: 09/02/2019 10:16 am REASON FOR STUDY: M54.5 LOW BACK PAIN M54.5 LOW BACK PAIN COMPARISON: CT abdomen pelvis 12/26/2017, 03/11/2013 TECHNIQUE: CT scan of the abdomen and pelvis performed without intravenous or oral contrast. Images reviewed with lung, soft tissue, and bone windows. Reconstructed coronal and sagittal MPR images revi ewed. All images stored on PACS. All CT scanners at this facility use dose modulation, iterative reconstruction, and/or weight based d osing when appropriate to reduce radiation dose to as low as reasonably achievable (ALARA). [facility]: Dose Right [facility]: CareDose [facility]: Dose Right [facility]: Teradose 4D [facility]: [employer] RADIATION DOSE: CT Rad equipment meets quality standard of care and radiation dose reduction techniq ues were employed. CTDIvol: 31.7 mGy. DLP: 1723 mGy-cm.mGy. LIMITATIONS: None. FINDINGS: LOWER CHEST: No significant findings. No nodules or infiltrates. NON-CONTRASTED LIVER, SPLEEN, ADRENALS: Evaluation limited by lack of IV contrast. No identified sign ificant masses. PANCREAS: No masses. No peripancreatic inflammatory changes. GALLBLADDER: Surgically absent RIGHT KIDNEY AND URETER: No suspicious masses. Assessment limited by lack of IV contrast. No signif icant calcifications. No hydronephrosis or hydroureter. LEFT KIDNEY AND URETER: No suspicious masses. Assessment limited by lack of IV contrast. No signifi cant calcifications. No hydronephrosis or hydroureter. AORTA AND RETROPERITONEUM: No aneurysm. No retroperitoneal masses or adenopathy. BOWEL AND PERITONEAL CAVITY: Post gastric bypass. No obvious masses or inflammatory changes. No free fluid. APPENDIX: Normal. PELVIS, BLADDER, AND ABDOMINAL WALL:No abnormal masses. No free fluid. Bladder normal. Normal size f emale pelvic organs. There is a midline incisional ventral hernia on axial image 34, sagittal image 54 containing fat. There is a periumbilical ventral hernia repair with a small recurrent fatty herni a to the right of the umbilicus on axial image 53-55. BONES: Degenerative disc changes and facet arthropathy lower lumbar spine OTHER: No other significant finding. IMPRESSION: Lower lumbar degenerative disc changes and facet arthropathy. Old midline incision with recurrent fat containing ventral hernias. Gastric bypass Cholecystectomy COMMENT: Quality ID # [id number]: Final reports with documentation of one or more dose reduction techniques (e.g., Automated exposure control, adjustment of the mA and/or kV according to patient size, use of iterative reconstruction technique) TECHNICAL DOCUMENTATION: JOB ID: [id number] [employer]- All Rights Reserved Reading location - IP/workstation name: [email or web address]
== END ==
LOC: RAD 10:08
PROVIDERS: ATTEND Internal Medicine Geriatric Medicine
DX: M54.5 Low back pain (principal); K43.2 Incisional hernia without obstruction or gangrene; M51.36 Other intervertebral disc degeneration, lumbar region
CPT/HCPCS: 74176

== ENCOUNTER → 2019-11-06 | Outpatient (CLI) | payer BC ==
[2019-11-06 09:14] LABS: ABSOLUTE EOSINOPHILS # (AUTO) 0.6 10^3/uL (0.0-0.6); ABSOLUTE LYMPHOCYTES (AUTO) 1.4 10^3/uL (0.5-4.7); ABSOLUTE MONOCYTES (AUTO) 0.6 10^3/uL (0.1-1.4); ABSOLUTE NEUT (AUTO) 5.8 10^3/uL (1.7-8.2); BASOPHILS % (AUTO) 0.6 % (0-2); EOSINOPHILS % (AUTO) 6.8 % (0-6); HEMATOCRIT 32.1 % (36.0-47.0); HEMOGLOBIN 10.8 g/dL (12.0-15.5); LYMPHOCYTES % (AUTO) 16.2 % (13-45); MEAN CORPUSCULAR HEMOGLOBIN 30.2 pg (27.0-33.4); MEAN CORPUSCULAR HGB CONC 33.7 g/dL (32.0-36.0); MEAN CORPUSCULAR VOLUME 90 fl (80-97); PLATELET COUNT 182 10^3/uL (150-450); RED BLOOD COUNT 3.59 10^6/uL (3.72-5.28); RED CELL DISTRIBUTION WIDTH 12.8 % (11.5-14.0); SEGMENTED NEUTROPHILS % (AUTO) 69.4 % (42-78); TOTAL CELLS COUNTED % (AUTO) 100 %; WHITE BLOOD COUNT 8.4 10^3/uL (4.0-10.5)
[2019-11-06 09:16] LABS: APPEARANCE,URINE SLIGHTLY-CLOUDY; BILIRUBIN,URINE NEGATIVE (NEGATIVE); COLOR,URINE YELLOW; GLUCOSE, URINE 50 mg/dL (NEGATIVE); KETONES,URINE NEGATIVE (NEGATIVE); LEUKOCYTE ESTERASE,URINE NEGATIVE (NEGATIVE); NITRITE,URINE NEGATIVE (NEGATIVE); PROTEIN,URINE 100 mg/dL (NEGATIVE); URINE SPECIFIC GRAVITY 1.011; UROBILINOGEN,URINE NEGATIVE mg/dL (<2.0)
[2019-11-06 09:20] LABS: URINE CREATININE 58.5 mg/dL (15-278)
[2019-11-06 09:30] LABS: UR PRO/CREAT RATIO RESULT 5.9 mg/mg (0.0-0.2); URINE PROTEIN 343.4 mg/dL (<12)
== END ==
LOC: OD 08:18
PROVIDERS: ATTEND Physician Assistant Medical
DX: N17.9 Acute kidney failure, unspecified (principal); I12.9 Hypertensive chronic kidney disease with stage 1 through stage 4 chronic kidney disease, or unspecified chronic kidney disease; N18.3 Chronic kidney disease, stage 3 (moderate); E11.22 Type 2 diabetes mellitus with diabetic chronic kidney disease; R80.9 Proteinuria, unspecified; R60.9 Edema, unspecified
CPT/HCPCS: 36415; 81001; 82570; 83970; 84156; 85025

== ENCOUNTER → 2019-11-16 | Outpatient (CLI) | payer BC ==
[2019-11-16 10:12] LABS: ABSOLUTE EOSINOPHILS # (AUTO) 0.5 10^3/uL (0.0-0.6); ABSOLUTE LYMPHOCYTES (AUTO) 0.6 10^3/uL (0.5-4.7); ABSOLUTE MONOCYTES (AUTO) 0.5 10^3/uL (0.1-1.4); ABSOLUTE NEUT (AUTO) 4.2 10^3/uL (1.7-8.2); BASOPHILS % (AUTO) 0.5 % (0-2); EOSINOPHILS % (AUTO) 7.8 % (0-6); HEMATOCRIT 27.9 % (36.0-47.0); HEMOGLOBIN 9.5 g/dL (12.0-15.5); LYMPHOCYTES % (AUTO) 10.7 % (13-45); MEAN CORPUSCULAR HEMOGLOBIN 30.4 pg (27.0-33.4); MEAN CORPUSCULAR HGB CONC 33.9 g/dL (32.0-36.0); MEAN CORPUSCULAR VOLUME 90 fl (80-97); MONOCYTES % (AUTO) 8.9 % (3-13); PLATELET COUNT 199 10^3/uL (150-450); RED BLOOD COUNT 3.12 10^6/uL (3.72-5.28); RED CELL DISTRIBUTION WIDTH 12.9 % (11.5-14.0); SEGMENTED NEUTROPHILS % (AUTO) 72.1 % (42-78); TOTAL CELLS COUNTED % (AUTO) 100 %; WHITE BLOOD COUNT 5.8 10^3/uL (4.0-10.5)
[2019-11-16 10:17] LABS: WHITE BLOOD COUNT 5.8 10^3/uL (4.0-10.5)
[2019-11-16 10:18] LABS: BASOPHILS % (AUTO) 0.5 % (0-2); EOSINOPHILS % (AUTO) 7.8 % (0-6); HEMATOCRIT 27.9 % (36.0-47.0); HEMOGLOBIN 9.5 g/dL (12.0-15.5); LYMPHOCYTES % (AUTO) 10.7 % (13-45); MEAN CORPUSCULAR HEMOGLOBIN 30.4 pg (27.0-33.4); MEAN CORPUSCULAR HGB CONC 33.9 g/dL (32.0-36.0); MEAN CORPUSCULAR VOLUME 90 fl (80-97); MONOCYTES % (AUTO) 8.9 % (3-13); PLATELET COUNT 199 10^3/uL (150-450); RED BLOOD COUNT 3.12 10^6/uL (3.72-5.28); RED CELL DISTRIBUTION WIDTH 12.9 % (11.5-14.0); SEGMENTED NEUTROPHILS % (AUTO) 72.1 % (42-78); TOTAL CELLS COUNTED % (AUTO) 100 %
[2019-11-16 10:19] LABS: ABSOLUTE EOSINOPHILS # (AUTO) 0.5 10^3/uL (0.0-0.6); ABSOLUTE LYMPHOCYTES (AUTO) 0.6 10^3/uL (0.5-4.7); ABSOLUTE MONOCYTES (AUTO) 0.5 10^3/uL (0.1-1.4); ABSOLUTE NEUT (AUTO) 4.2 10^3/uL (1.7-8.2)
[2019-11-16 10:45] LABS: ALBUMIN 3.1 g/dL (3.5-5.0); ALKALINE PHOSPHATASE 255 U/L (38-126); ANION GAP 16 (5-19); ASPARTATE AMINO TRANSFERASE 30 U/L (14-36); BILIRUBIN,DIRECT 0.4 mg/dL (0.0-0.4); BILIRUBIN,TOTAL 0.4 mg/dL (0.2-1.3); BLOOD UREA NITROGEN 84 mg/dL (7-20); CALCIUM 8.1 mg/dL (8.4-10.2); CARBON DIOXIDE 21 mmol/L (22-30); CHLORIDE 104 mmol/L (98-107); CHOLESTEROL 126.73 mg/dL (0-200); GLUCOSE 80 mg/dL (75-110); POTASSIUM 4.4 mmol/L (3.6-5.0); TOTAL PROTEIN 6.5 g/dL (6.3-8.2); TRIGLYCERIDES 157 mg/dL (<150)
[2019-11-16 10:56] LABS: DIRECT LDL 59 mg/dL (<100)
[2019-11-16 11:04] LABS: VLDL CHOLESTEROL 31.4 mg/dL (10-31)
[2019-11-16 11:13] LABS: BLOOD UREA NITROGEN 84 mg/dL (7-20); CALCIUM 8.1 mg/dL (8.4-10.2); CARBON DIOXIDE 21 mmol/L (22-30); CHLORIDE 104 mmol/L (98-107); GLUCOSE 80 mg/dL (75-110); POTASSIUM 4.4 mmol/L (3.6-5.0)
[2019-11-16 11:14] LABS: ANION GAP 16 (5-19)
[2019-11-16 12:04] LABS: IRON(TIBC) 62.2 ug/dL (37-170); PHOSPHORUS 7.2 mg/dL (2.5-4.5)
== END ==
LOC: OD 09:34
PROVIDERS: ATTEND Internal Medicine Geriatric Medicine
DX: N17.9 Acute kidney failure, unspecified (principal); I12.9 Hypertensive chronic kidney disease with stage 1 through stage 4 chronic kidney disease, or unspecified chronic kidney disease; N18.3 Chronic kidney disease, stage 3 (moderate); E11.22 Type 2 diabetes mellitus with diabetic chronic kidney disease; E11.3313 Type 2 diabetes mellitus with moderate nonproliferative diabetic retinopathy with macular edema, bilateral; D63.1 Anemia in chronic kidney disease; R80.9 Proteinuria, unspecified; R60.9 Edema, unspecified; E78.5 Hyperlipidemia, unspecified
CPT/HCPCS: 36415; 80048; 80061; 82728; 83036; 83540; 83550; 84100; 85025; 87070

== ENCOUNTER 2019-11-21 10:38 | Emergency (ER) | payer BC ==
--- NOTE | 2019-11-21 12:15 | ER Document Report ---
ED Medical Screen (RME) - General Chief Complaint: Abnormal Lab Results Stated Complaint: ABNORMAL LABS/BACK PAIN Time Seen by Provider: 11/21/19 12:06 Primary Care Provider: LISA VEGA PA-C [Primary Care Provider] - Follow up as needed Mode of Arrival: Ambulatory Information source: Patient Notes: 59-year-old female with history of diabetes high blood pressure and kidney disease presents emergency department sent over by her transit mixer operator for high BUN and creatinine. She reports she was sent over here for fluids. She also complains of right flank pain. Denies fever vomiting diarrhea. Denies chest pain. I have greeted and performed a rapid initial assessment of this patient. A comprehensive ED assessment and evaluation of the patient, analysis of test results and completion of the medical decision making process will be conducted by additional ED providers. TRAVEL OUTSIDE OF THE [place] IN LAST 30 DAYS: No - Related Data Allergies/Adverse Reactions: No Known Allergies Allergy (Verified 11/21/19 12:02) Past Medical History - Social History Chew tobacco use (# tins/day): No Frequency of alcohol use: None Drug Abuse: None - Past Medical History Cardiac Medical History: Reports: Hx Hypercholesterolemia, Hx Hypertension Denies: Hx Coronary Artery Disease, Hx Heart Attack Pulmonary Medical History: Denies: Hx Asthma, Hx Bronchitis, Hx COPD, Hx Pneumonia Neurological Medical History: Denies: Hx Cerebrovascular Accident, Hx Seizures Endocrine Medical History: Reports: Hx Diabetes Mellitus Type 2 Renal/ Medical History: Denies: Hx Peritoneal Dialysis GI Medical History: Reports: Hx Hiatal Hernia Musculoskeltal Medical History: Reports Hx Arthritis Psychiatric Medical History: Reports: Hx Depression Past Surgical History: Reports: Hx Abdominal Surgery - hernia, Hx Bowel Surgery - gastric, Hx Section, Hx Cholecystectomy. Denies: Hx Hysterectomy - Immunizations Hx Diphtheria, Pertussis, Tetanus Vaccination: Yes Physical Exam - Vital signs Vitals: Temp Pulse Resp BP Pulse Ox 98.1 F 100 16 156/89 H 98 11/21/19 10:43 11/21/19 10:43 11/21/19 10:43 11/21/19 10:43 11/21/19 10:43 Course - Vital Signs Vital signs: Temp Pulse Resp BP Pulse Ox 98.1 F 100 16 156/89 H 98 11/21/19 10:43 11/21/19 10:43 11/21/19 10:43 11/21/19 10:43 11/21/19 10:43 Doctor's Discharge - Discharge Referrals: LISA VEGA PA-C [Primary Care Provider] - Follow up as needed
[2019-11-21] MEDS ORDERED: NORMAL SALINE 1000 ML 1,000 ML IV SCH (12:30)
[2019-11-21 13:18] LABS: APPEARANCE,URINE CLEAR; BILIRUBIN,URINE NEGATIVE (NEGATIVE); COLOR,URINE STRAW; GLUCOSE, URINE NEGATIVE (NEGATIVE); KETONES,URINE NEGATIVE (NEGATIVE); LEUKOCYTE ESTERASE,URINE NEGATIVE (NEGATIVE); NITRITE,URINE NEGATIVE (NEGATIVE); PROTEIN,URINE 100 mg/dL (NEGATIVE); URINE SPECIFIC GRAVITY 1.008; UROBILINOGEN,URINE NEGATIVE mg/dL (<2.0)
[2019-11-21 13:42] LABS: ABSOLUTE EOSINOPHILS # (AUTO) 0.5 10^3/uL (0.0-0.6); ABSOLUTE LYMPHOCYTES (AUTO) 1.1 10^3/uL (0.5-4.7); ABSOLUTE MONOCYTES (AUTO) 0.5 10^3/uL (0.1-1.4); ABSOLUTE NEUT (AUTO) 5.7 10^3/uL (1.7-8.2); BASOPHILS % (AUTO) 0.5 % (0-2); EOSINOPHILS % (AUTO) 6.1 % (0-6); HEMATOCRIT 30.7 % (36.0-47.0); HEMOGLOBIN 10.5 g/dL (12.0-15.5); LYMPHOCYTES % (AUTO) 13.8 % (13-45); MEAN CORPUSCULAR HEMOGLOBIN 30.3 pg (27.0-33.4); MEAN CORPUSCULAR VOLUME 89 fl (80-97); MONOCYTES % (AUTO) 6.9 % (3-13); PLATELET COUNT 156 10^3/uL (150-450); RED BLOOD COUNT 3.45 10^6/uL (3.72-5.28); RED CELL DISTRIBUTION WIDTH 12.8 % (11.5-14.0); SEGMENTED NEUTROPHILS % (AUTO) 72.7 % (42-78); TOTAL CELLS COUNTED % (AUTO) 100 %; WHITE BLOOD COUNT 7.9 10^3/uL (4.0-10.5)
[2019-11-21 14:06] LABS: ALBUMIN 3.5 g/dL (3.5-5.0); ALKALINE PHOSPHATASE 285 U/L (38-126); ANION GAP 15 (5-19); ASPARTATE AMINO TRANSFERASE 25 U/L (14-36); BILIRUBIN,DIRECT 0.5 mg/dL (0.0-0.4); BILIRUBIN,TOTAL 0.5 mg/dL (0.2-1.3); BLOOD UREA NITROGEN 78 mg/dL (7-20); CALCIUM 8.8 mg/dL (8.4-10.2); CARBON DIOXIDE 21 mmol/L (22-30); CHLORIDE 101 mmol/L (98-107); GLUCOSE 184 mg/dL (75-110); POTASSIUM 3.9 mmol/L (3.6-5.0); TOTAL PROTEIN 7.3 g/dL (6.3-8.2)
[2019-11-21] MEDS ORDERED: NORMAL SALINE 1000 ML 1,000 ML IV ONE (17:45)
--- NOTE | 2019-11-21 19:33 | ER Document Report ---
ED General - General Mode of Arrival: Ambulatory TRAVEL OUTSIDE OF THE [place]. IN LAST 30 DAYS: No <GENARO GORDILLO - Last Filed: 11/21/19 20:26> <SLIMPINAROQUE - Last Filed: 11/21/19 20:41> - General Chief Complaint: Abnormal Lab Results Stated Complaint: ABNORMAL LABS/BACK PAIN Time Seen by Provider: 11/21/19 12:06 Primary Care Provider: LISA VEGA PA-C [Primary Care Provider] - Follow up in 3-5 days Notes: 59-year-old female presents with right flank pain and elevated creatinine, elevated BUN, decreased GFR. Patient states her dielectric testing machine operator called her and told her to come to the ER for IV fluids. Patient denies any nausea, vomiting, abdominal pain, chest pain, shortness of breath, fever, chills, hematuria, dysuria. Patient denies any history of kidney stones or kidney infections. Patient does states she has been having some urinary frequency. Patient reports that the right flank pain and urinary frequency is ongoing for 1 month. Right flank pain is worse with standing. (GENARO GORDILLO) - Related Data Allergies/Adverse Reactions: No Known Allergies Allergy (Verified 11/21/19 12:02) Past Medical History - General Information source: Patient - Social History Smoking Status: Never Smoker Chew tobacco use (# tins/day): No Frequency of alcohol use: None Drug Abuse: None Family History: Reviewed & Not Pertinent Patient has suicidal ideation: No Patient has homicidal ideation: No - Past Medical History Cardiac Medical History: Reports: Hx Hypercholesterolemia, Hx Hypertension Denies: Hx Coronary Artery Disease, Hx Heart Attack Pulmonary Medical History: Denies: Hx Asthma, Hx Bronchitis, Hx COPD, Hx Pneumonia Neurological Medical History: Denies: Hx Cerebrovascular Accident, Hx Seizures Endocrine Medical History: Reports: Hx Diabetes Mellitus Type 2 Renal/ Medical History: Denies: Hx Peritoneal Dialysis GI Medical History: Reports: Hx Hiatal Hernia Musculoskeletal Medical History: Reports Hx Arthritis Psychiatric Medical History: Reports: Hx Depression Past Surgical History: Reports: Hx Abdominal Surgery - hernia, Hx Bowel Surgery - gastric, Hx Section, Hx Cholecystectomy. Denies: Hx Hysterectomy - Immunizations Hx Diphtheria, Pertussis, Tetanus Vaccination: Yes <GENARO GORDILLO - Last Filed: 11/21/19 20:26> Review of Systems <MIRTA GORDILLODHI Malika - Last Filed: 11/21/19 20:26> - Review of Systems Notes: Constitutional: Negative for fever. HENT: Negative for sore throat. Eyes: Negative for visual changes. Cardiovascular: Negative for chest pain. Respiratory: Negative for shortness of breath. Gastrointestinal: Negative for abdominal pain, vomiting or diarrhea. Genitourinary: Positive for right flank pain and urinary frequency. Negative for dysuria. Musculoskeletal: Negative for back pain. Skin: Negative for rash. Neurological: Negative for headaches, weakness or numbness. 10 point ROS negative except as marked above and in HPI. (GORDILLOGENARO Daly) Physical Exam <IMER GORDILLOCrow Daly - Last Filed: 11/21/19 20:26> - Vital signs Vitals: Temp Pulse Resp BP Pulse Ox 98.1 F 100 16 156/89 H 98 11/21/19 10:43 11/21/19 10:43 11/21/19 10:43 11/21/19 10:43 11/21/19 10:43 - Notes Notes: GENERAL: Well-appearing, well-nourished and in no acute distress. HEAD: Atraumatic, normocephalic. EYES: Extraocular movements intact, sclera anicteric, conjunctiva are normal. NECK: Normal range of motion, supple without lymphadenopathy or JVD. LUNGS: Breath sounds clear to auscultation bilaterally and equal. No wheezes rales or rhonchi. HEART: Regular rate and rhythm without murmurs, rubs or gallops. ABDOMEN: Soft, nontender. No guarding, no rebound. No masses appreciated. No CVA tenderness. EXTREMITIES: Normal range of motion, no pitting or edema. No clubbing or cyanosis. NEUROLOGICAL: Cranial nerves II through XII grossly intact. Normal speech, normal gait. PSYCH: Normal mood, normal affect. SKIN: Warm, Dry, normal turgor, no rashes or lesions noted. (GORDILLOGENARO CONNER) Course - Laboratory Result Diagrams: 11/21/19 13:28 11/21/19 13:28 <GORDILLOMIRTAGENARO R - Last Filed: 11/21/19 20:26> - Laboratory Result Diagrams: 11/21/19 13:28 11/21/19 13:28 <FRIANT,ROQUE - Last Filed: 11/21/19 20:41> - Re-evaluation Re-evalutation: 11/21/19 nontoxic, well-appearing female presents with right flank pain and urinary frequency for 1 month. Patient was sent to ER by dielectric testing machine operator due to elevated BUN, elevated creatinine, and decreased GFR. Patient's work-up including CBC, CMP, UA. CT abdomen/pelvis without contrast was also ordered. When trending patient's BUN, creatinine, GFR the BUN and creatinine have been noted to be steadily rising and GFR has been noted to be progressively de creasing. IV fluids were ordered however patient is a difficult stick and her previous IVs blew. UA shows 100 protein but otherwise shows no infection. 11/21/19 19:51 CT scan shows no ureteral lithiasis however shows hernia without strangulation or incarceration. (GENARO GORDILLO) - Vital Signs Vital signs: Temp Pulse Resp BP Pulse Ox 98.1 F 100 16 173/82 H 100 11/21/19 10:43 11/21/19 10:43 11/21/19 10:43 11/21/19 20:34 11/21/19 20:34 - Laboratory Laboratory results interpreted by me: 11/21/19 11/21/19 11/21/19 12:47 13:28 13:28 RBC 3.45 L Hgb 10.5 L Hct 30.7 L Eos % (Auto) 6.1 H Carbon Dioxide 21 L BUN 78 H Creatinine 6.80 H Est GFR ( Amer) 8 L Est GFR (MDRD) Non-Af 6 L Glucose 184 H Direct Bilirubin 0.5 H Alkaline Phosphatase 285 H Urine Protein 100 H Urine Ascorbic Acid 40 H Discharge <GENARO GORDILLO - Last Filed: 11/21/19 20:26> <ROQUE DAVE - Last Filed: 11/21/19 20:41> - Discharge Clinical Impression: Flank pain Chronic kidney disease Qualifiers: Chronic kidney disease stage: unspecified stage Qualified Code(s): N18.9 - Chronic kidney disease, unspecified Condition: Stable Disposition: HOME, SELF-CARE Additional Instructions: Your CT scan did not show any kidney stones. Please follow-up with your dielectric testing machine operator in 1 to 2 weeks. Please follow-up with your primary care doctor in 3 to 5 days. Return immediately to ER for any worsening symptoms, including fever, blood in your urine, burning when you pee, urinary frequency, abdominal pain, nausea/vomiting, chest pain, shortness of breath, or any other symptoms th at are concerning to you. Referrals: LISA VEGA PA-C [Primary Care Provider] - Follow up in 3-5 days
--- NOTE | 2019-11-21 19:36 | RADIOLOGY REPORT (SQ) ---
EXAM DESCRIPTION: CT ABD/PELVIS NO ORAL OR IV COMPLETED DATE/TIME: 11/21/2019 6:47 pm REASON FOR STUDY: right flank pain COMPARISON: CT abdomen pelvis 09/02/2019 TECHNIQUE: CT scan of the abdomen and pelvis performed without intravenous or oral contrast. Images reviewed with lung, soft tissue, and bone windows. Reconstructed coronal and sagittal MPR images revi ewed. All images stored on PACS. All CT scanners at this facility use dose modulation, iterative reconstruction, and/or weight based d osing when appropriate to reduce radiation dose to as low as reasonably achievable (ALARA). [facility]: Dose Right [facility]: CareDose [facility]: Dose Right [facility]: Teradose 4D [facility]: Smart [employer] [facility] RADIATION DOSE: CT Rad equipment meets quality standard of care and radiation dose reduction techniq ues were employed. CTDIvol: 19.2 mGy. DLP: 1152 mGy-cm.mGy. LIMITATIONS: None. FINDINGS: LOWER CHEST: No significant findings. No nodules or infiltrates. NON-CONTRASTED LIVER, SPLEEN, ADRENALS: Evaluation limited by lack of IV contrast. No identified sign ificant masses. PANCREAS: No masses. No peripancreatic inflammatory changes. GALLBLADDER: Surgically absent. RIGHT KIDNEY AND URETER: No suspicious masses. Assessment limited by lack of IV contrast. No signif icant calcifications. No hydronephrosis or hydroureter. LEFT KIDNEY AND URETER: No suspicious masses. Assessment limited by lack of IV contrast. No signifi cant calcifications. No hydronephrosis or hydroureter. AORTA AND RETROPERITONEUM: No aneurysm. No retroperitoneal masses or adenopathy. BOWEL AND PERITONEAL CAVITY: Postsurgical changes of bariatric surgery. Partial herniation of otherw ise normal appearing transverse colon through a 4 cm midline upper abdominal ventral wall hernia. No bowel wall thickening. Nondistended bowel. APPENDIX: Normal. PELVIS, BLADDER, AND ABDOMINAL WALL:No abnormal masses. No free fluid. Bladder normal. BONES: No acute findings. OTHER: No other significant finding. IMPRESSION: No urolithiasis. Partial herniation of transverse colon through 4 cm upper abdominal wall midline ventral hernia witho ut evidence of strangulation/incarceration. COMMENT: Quality ID # [id number]: Final reports with documentation of one or more dose reduction techniques (e.g., Automated exposure control, adjustment of the mA and/or kV according to patient size, use of iterative reconstruction technique) TECHNICAL DOCUMENTATION: JOB ID: [id number] [employer]- All Rights Reserved Reading location - IP/workstation name: [email or web address]
[2019-11-21 20:37] VITALS: BP 173/82
== END 2019-11-21 20:48 | disposition home or self-care (01) ==
LOC: ER 10:38
DX: I12.9 Hypertensive chronic kidney disease with stage 1 through stage 4 chronic kidney disease, or unspecified chronic kidney disease (principal); N18.9 Chronic kidney disease, unspecified; R10.9 Unspecified abdominal pain; R35.0 Frequency of micturition; E78.00 Pure hypercholesterolemia, unspecified; E11.9 Type 2 diabetes mellitus without complications; Z90.49 Acquired absence of other specified parts of digestive tract
CPT/HCPCS: 99284; 96360; 96361; 36415; 80053; 81001; 74176; J7030

== ENCOUNTER → 2019-11-21 | Outpatient (CLI) | payer BC ==
[2019-11-21 09:42] LABS: ABSOLUTE EOSINOPHILS # (AUTO) 0.7 10^3/uL (0.0-0.6); ABSOLUTE LYMPHOCYTES (AUTO) 1.2 10^3/uL (0.5-4.7); ABSOLUTE MONOCYTES (AUTO) 0.7 10^3/uL (0.1-1.4); ABSOLUTE NEUT (AUTO) 5.4 10^3/uL (1.7-8.2); BASOPHILS % (AUTO) 0.4 % (0-2); EOSINOPHILS % (AUTO) 8.2 % (0-6); HEMATOCRIT 30.9 % (36.0-47.0); HEMOGLOBIN 10.5 g/dL (12.0-15.5); LYMPHOCYTES % (AUTO) 15.1 % (13-45); MEAN CORPUSCULAR HEMOGLOBIN 30.5 pg (27.0-33.4); MEAN CORPUSCULAR VOLUME 90 fl (80-97); MONOCYTES % (AUTO) 8.6 % (3-13); PLATELET COUNT 203 10^3/uL (150-450); RED BLOOD COUNT 3.44 10^6/uL (3.72-5.28); SEGMENTED NEUTROPHILS % (AUTO) 67.7 % (42-78); TOTAL CELLS COUNTED % (AUTO) 100 %; WHITE BLOOD COUNT 7.9 10^3/uL (4.0-10.5)
[2019-11-21 09:53] LABS: APPEARANCE,URINE SLIGHTLY-CLOUDY; BILIRUBIN,URINE NEGATIVE (NEGATIVE); COLOR,URINE STRAW; GLUCOSE, URINE NEGATIVE (NEGATIVE); KETONES,URINE NEGATIVE (NEGATIVE); LEUKOCYTE ESTERASE,URINE NEGATIVE (NEGATIVE); NITRITE,URINE NEGATIVE (NEGATIVE); PROTEIN,URINE 100 mg/dL (NEGATIVE); URINE SPECIFIC GRAVITY 1.009; UROBILINOGEN,URINE NEGATIVE mg/dL (<2.0)
[2019-11-21 10:10] LABS: ALBUMIN 3.4 g/dL (3.5-5.0); ANION GAP 17 (5-19); BLOOD UREA NITROGEN 76 mg/dL (7-20); CALCIUM 8.6 mg/dL (8.4-10.2); CARBON DIOXIDE 19 mmol/L (22-30); CHLORIDE 102 mmol/L (98-107); GLUCOSE 147 mg/dL (75-110); PHOSPHORUS 6.3 mg/dL (2.5-4.5); POTASSIUM 3.9 mmol/L (3.6-5.0)
== END ==
LOC: OD 08:19
PROVIDERS: ATTEND Physician Assistant Medical
DX: N18.4 Chronic kidney disease, stage 4 (severe) (principal)
CPT/HCPCS: 36415; 80069; 81001; 85025

== ENCOUNTER → 2019-11-28 | Outpatient (CLI) | payer BC ==
--- NOTE | 2019-11-28 14:48 | EKG REPORT ---
SEVERITY:- ABNORMAL ECG - SINUS TACHYCARDIA MULTIPLE VENTRICULAR PREMATURE COMPLEXES : Confirmed by: Reuben Castaneda MD 28-Nov-2019 14:47:42
== END ==
LOC: OD 10:39
PROVIDERS: ATTEND Physician Assistant Medical
DX: I49.9 Cardiac arrhythmia, unspecified (principal)
CPT/HCPCS: 93005; 93010

== ENCOUNTER 2020-02-03 22:58 | Emergency (ER) | payer BC ==
[2020-02-04] MEDS ORDERED: ONDANSETRON 4 MG TAB.RAPDIS PO ONE (00:12)
--- NOTE | 2020-02-04 00:20 | ER Document Report ---
ED Medical Screen (RME) - General Chief Complaint: Chest Pain Stated Complaint: CHEST PAIN Time Seen by Provider: 02/03/20 23:56 Primary Care Provider: LISA VEGA PA-C [Primary Care Provider] - Follow up as needed TRAVEL OUTSIDE OF THE [place] IN LAST 30 DAYS: No - HPI Notes: 02/04/20 00:12 Ms. Mtz is a 59-year-old -[place] female with past medical history of type 2 diabetes, hypertension, and ESRD stage V planning dialysis, who presents with chief complaint of chest pain that began earlier today around 6:30 PM. She states that she was sitting down in a chair about to eat dinner when she experienced onset of achy squeezing chest pain with radiation to her right shoulder as well as intermittent chest palpitations. She also reports shortness of breath and nausea, but no vomiting. Patient notes that took an aspirin, and that the pain has started to resolve prior to presentation. She denies any similar prior episodes in the past. However patient reports one episode last week with onset of bilateral RUE pain that onset while sitting in a chair and eventually self resolved. Currently she endorses nausea, but states that her chest pain has resolved. She denies any new other symptoms including changes in bowel bladder, headache, fevers, or chills. Of note, patient has a history of anxiety and reports recent stressors at home. Pt reports RLE edema vs left is normal for her. R>L. I have treated and performed a rapid initial assessment of this patient. A comprehensive ED assessment and evaluation of the patient, analysis of test results and completion of medical decision making process will be conducted by additional ED providers. PHYSICAL EXAMINATION: GENERAL: Well-appearing, well-nourished and in no acute distress. A&Ox4. Answers questions appropriately. Lungs: CTAB Heart: RRR Extremities: 2+ edema right lower extremity. Trace edema left lower extremity. - Related Data Allergies/Adverse Reactions: No Known Allergies Allergy (Verified 02/03/20 23:56) Home Medications: 0.3mg Clonidine TID. Amlodipine BID Past Medical History - Past Medical History Cardiac Medical History: Reports: Hx Hypercholesterolemia, Hx Hypertension Denies: Hx Coronary Artery Disease, Hx Heart Attack Pulmonary Medical History: Denies: Hx Asthma, Hx Bronchitis, Hx COPD, Hx Pneumonia Neurological Medical History: Denies: Hx Cerebrovascular Accident, Hx Seizures Endocrine Medical History: Reports: Hx Diabetes Mellitus Type 2 Renal/ Medical History: Denies: Hx Peritoneal Dialysis GI Medical History: Reports: Hx Hiatal Hernia Musculoskeltal Medical History: Reports Hx Arthritis Psychiatric Medical History: Reports: Hx Depression Past Surgical History: Reports: Hx Abdominal Surgery - hernia, Hx Bowel Surgery - gastric, Hx Section, Hx Cholecystectomy. Denies: Hx Hysterectomy - Immunizations Hx Diphtheria, Pertussis, Tetanus Vaccination: Yes Physical Exam - Vital signs Vitals: Temp Pulse Resp BP Pulse Ox 98.9 F 118 H 18 155/99 H 97 02/03/20 23:11 02/03/20 23:11 02/03/20 23:11 02/03/20 23:11 02/03/20 23:11 Course - Vital Signs Vital signs: Temp Pulse Resp BP Pulse Ox 98.9 F 100 18 155/99 H 99 02/03/20 23:11 02/04/20 00:05 02/04/20 00:05 02/03/20 23:11 02/04/20 00:05 Doctor's Discharge - Discharge Referrals: LISA VEGA PA-C [Primary Care Provider] - Follow up as needed
[2020-02-04 00:59] LABS: ABSOLUTE BASOPHILS # (AUTO) 0.1 10^3/uL (0.0-0.2); ABSOLUTE EOSINOPHILS # (AUTO) 0.4 10^3/uL (0.0-0.6); ABSOLUTE LYMPHOCYTES (AUTO) 2.3 10^3/uL (0.5-4.7); ABSOLUTE MONOCYTES (AUTO) 1.1 10^3/uL (0.1-1.4); BASOPHILS % (AUTO) 0.4 % (0-2); EOSINOPHILS % (AUTO) 2.4 % (0-6); HEMATOCRIT 30.3 % (36.0-47.0); LYMPHOCYTES % (AUTO) 14.2 % (13-45); MEAN CORPUSCULAR HEMOGLOBIN 30.4 pg (27.0-33.4); MEAN CORPUSCULAR HGB CONC 32.9 g/dL (32.0-36.0); MEAN CORPUSCULAR VOLUME 92 fl (80-97); MONOCYTES % (AUTO) 7.2 % (3-13); PLATELET COUNT 258 10^3/uL (150-450); RED BLOOD COUNT 3.28 10^6/uL (3.72-5.28); SEGMENTED NEUTROPHILS % (AUTO) 75.8 % (42-78); TOTAL CELLS COUNTED % (AUTO) 100 %; WHITE BLOOD COUNT 15.8 10^3/uL (4.0-10.5)
[2020-02-04 01:14] LABS: APPEARANCE,URINE CLOUDY; BILIRUBIN,URINE NEGATIVE (NEGATIVE); COLOR,URINE YELLOW; GLUCOSE, URINE NEGATIVE (NEGATIVE); KETONES,URINE NEGATIVE (NEGATIVE); PROTEIN,URINE >=500 mg/dL (NEGATIVE); URINE SPECIFIC GRAVITY 1.017; UROBILINOGEN,URINE NEGATIVE mg/dL (<2.0)
[2020-02-04 01:21] LABS: NT PRO BNP 3520 pg/mL (<125)
[2020-02-04 01:25] LABS: TROPONIN I < 0.012 ng/mL
--- NOTE | 2020-02-04 01:46 | RADIOLOGY REPORT (SQ) ---
EXAM DESCRIPTION: XR CHEST 2 VIEWS COMPLETED DATE/TME: 02/04/2020 00:11 CLINICAL HISTORY: 59 years, Female, CP COMPARISON: None. NUMBER OF VIEWS: 2 TECHNIQUE: LIMITATIONS: None. FINDINGS: Cardiomediastinal silhouette is of normal size. Lungs of low volume but grossly clear. Minimal platelike atelectasis. No consolidation or edema. No effusion or pneumothorax. Age-appropriate osteoarthritis IMPRESSION: Presumed chronic change. No acute process. The cause of the patient's chest pain is not identified on this examination. copyright 2010 [employer]- All Rights Reserved
[2020-02-04 01:49] LABS: ALBUMIN 4.1 g/dL (3.5-5.0); ALKALINE PHOSPHATASE 240 U/L (38-126); ANION GAP 16 (5-19); ASPARTATE AMINO TRANSFERASE 27 U/L (14-36); BILIRUBIN,DIRECT 0.3 mg/dL (0.0-0.4); BILIRUBIN,TOTAL 0.5 mg/dL (0.2-1.3); BLOOD UREA NITROGEN 78 mg/dL (7-20); CALCIUM 8.9 mg/dL (8.4-10.2); CARBON DIOXIDE 20 mmol/L (22-30); CHLORIDE 102 mmol/L (98-107); GLUCOSE 129 mg/dL (75-110); POTASSIUM 5.3 mmol/L (3.6-5.0); TOTAL PROTEIN 8.1 g/dL (6.3-8.2)
--- NOTE | 2020-02-04 02:18 | ER Document Report ---
ED General - General Chief Complaint: Chest Pain Stated Complaint: CHEST PAIN Time Seen by Provider: 02/03/20 23:56 Primary Care Provider: LISA VEGA PA-C [ALLIED HEALTH PROFESSIONAL] - Follow up as needed Notes: Patient is a 59-year-old female who comes emergency department for chief complaint of pain in the center of her chest that radiated out towards her right shoulder. She states she had been dry heaving all day long in addition to this, she states she felt like she could not eat anything. She has had small hard bowel movements over the past several days and also reports some abdominal swelling. She denies shortness of breath, fever, she states pain in her chest and nausea are currently resolved. She has a history of gastric bypass, cholecystectomy, appendectomy, end-stage renal disease but not yet on dialysis, hypertension, hyperlipidemia, type 2 diabetes. She denies history of MT or stents. TRAVEL OUTSIDE OF THE [place] IN LAST 30 DAYS: No - Related Data Allergies/Adverse Reactions: No Known Allergies Allergy (Verified 02/03/20 23:56) Home Medications: 0.3mg Clonidine TID. Amlodipine BID Past Medical History - General Information source: Patient - Social History Smoking Status: Former Smoker Frequency of alcohol use: None Drug Abuse: None Lives with: Family Family History: Reviewed & Not Pertinent Patient has suicidal ideation: No Patient has homicidal ideation: No - Past Medical History Cardiac Medical History: Reports: Hx Hypercholesterolemia, Hx Hypertension Denies: Hx Coronary Artery Disease, Hx Heart Attack Pulmonary Medical History: Denies: Hx Asthma, Hx Bronchitis, Hx COPD, Hx Pneumonia Neurological Medical History: Denies: Hx Cerebrovascular Accident, Hx Seizures Endocrine Medical History: Reports: Hx Diabetes Mellitus Type 2 Renal/ Medical History: Denies: Hx Peritoneal Dialysis GI Medical History: Reports: Hx Hiatal Hernia Musculoskeletal Medical History: Reports Hx Arthritis Psychiatric Medical History: Reports: Hx Depression Past Surgical History: Reports: Hx Abdominal Surgery - hernia, Hx Bowel Surgery - gastric, Hx Section, Hx Cholecystectomy. Denies: Hx Hysterectomy - Immunizations Hx Diphtheria, Pertussis, Tetanus Vaccination: Yes Review of Systems - Review of Systems Constitutional: See HPI EENT: No symptoms reported Cardiovascular: See HPI Respiratory: No symptoms reported Gastrointestinal: See HPI Genitourinary: No symptoms reported Female Genitourinary: No symptoms reported Musculoskeletal: No symptoms reported Skin: No symptoms reported Hematologic/Lymphatic: No symptoms reported Neurological/Psychological: No symptoms reported Physical Exam - Vital signs Vitals: Temp Pulse Resp BP Pulse Ox 98.9 F 118 H 18 155/99 H 97 02/03/20 23:11 02/03/20 23:11 02/03/20 23:11 02/03/20 23:11 02/03/20 23:11 - Notes Notes: GENERAL: Alert, interacts well. No acute distress. HEAD: Normocephalic, atraumatic. EYES: Pupils equal, round, and reactive to light. Extraocular movements intact. ENT: Oral mucosa very dry, tongue midline. Oropharynx unremarkable. Airway patent. LUNGS: Clear to auscultation bilaterally, no wheezes, rales, or rhonchi. No respiratory distress. HEART: Borderline tachycardic, mynor rhythm. No murmur ABDOMEN: There is some generalized tenderness of the mid upper abdomen, nonspecific, no guarding, bowel sounds are present GENITOURINARY: Deferred EXTREMITIES: Moves all 4 extremities spontaneously. No edema, normal radial and dorsalis pedis pulses bilaterally. No cyanosis. BACK: no cervical, thoracic, lumbar midline tenderness. No saddle anesthesia, normal distal neurovascular exam. Moves all extremities in full range of motion. NEUROLOGICAL: Alert and oriented x3. Normal speech. Cranial nerves II through XII grossly intact. PSYCH: Normal affect, normal mood. Very talkative, laughing, well-appearing SKIN: Warm, dry, normal turgor. No rashes or lesions noted. Course - Re-evaluation Re-evalutation: Patient with multiple episodes of dry heaving at home, has some upper abdominal tenderness, also is reporting constipation. Troponin negative. Potassium is 5.3 with elevated creatinine but creatinine is similar to prior, patient urinated without difficulty, she was given some IV fluids. There are no concerning changes on EKG in regards to potassium. Tachycardia resolved on my reevaluation after IV fluids, heart rate is in the 90s. X-ray showing a lot of retained stool on the right. Discussed options, decision was made proceed with oral treatment instead of enema. Second opponent cycled and negative. Patient had return of her symptoms and her epigastric area and lower chest, she was given GI cocktail and this completely resolved. This cate ears to be definitely a gastrointestinal source of her symptoms. Patient has not vomited since nausea medications, she has tolerated p.o. without any difficulty. She states she feels much better and she wants to go home. Based on her overall work-up I do have a very low suspicion of ACS. Patient states she has almost immediate follow-up in regards to her kidneys, she will have her chemistry rechecked at that time, she requests a treatment for constipation and nausea along with treatment for GERD. This was provided. Discussed return precautions in detail. Patient and family state appreciation and agreement. Stable at time of discharge. - Vital Signs Vital signs: Temp Pulse Resp BP Pulse Ox 98.4 F 100 18 155/104 H 100 02/04/20 05:31 02/04/20 00:05 02/04/20 05:31 02/04/20 05:31 02/04/20 05:31 - Laboratory Result Diagrams: 02/04/20 00:33 02/04/20 00:33 Laboratory results interpreted by me: 02/04/20 02/04/20 02/04/20 00:33 00:33 00:33 WBC 15.8 H RBC 3.28 L Hgb 10.0 L Hct 30.3 L Absolute Neuts (auto) 12.0 H Potassium 5.3 H Carbon Dioxide 20 L BUN 78 H Creatinine 6.53 H Est GFR ( Amer) 8 L Est GFR (MDRD) Non-Af 7 L Glucose 129 H Alkaline Phosphatase 240 H NT-Pro-B Natriuret Pep 3520 H Urine Protein Urine Ascorbic Acid 02/04/20 00:33 WBC RBC Hgb Hct Absolute Neuts (auto) Potassium Carbon Dioxide BUN Creatinine Est GFR ( Amer) Est GFR (MDRD) Non-Af Glucose Alkaline Phosphatase NT-Pro-B Natriuret Pep Urine Protein >=500 H Urine Ascorbic Acid 40 H Discharge - Discharge Clinical Impression: Upper abdominal pain Chest pain Qualifiers: Chest pain type: unspecified Qualified Code(s): R07.9 - Chest pain, unspecified Vomiting Qualifiers: Vomiting type: unspecified Vomiting Intractability: non-intractable Nausea presence: with nausea Qualified Code(s): R11.2 - Nausea with vomiting, unspecified Constipation Qualifiers: Constipation type: unspecified constipation type Qualified Code(s): K59.00 - Constipation, unspecified Condition: Stable Disposition: HOME, SELF-CARE Additional Instructions: Your heart work-up is reassuring. Your evaluation is consistent with inflammation of the upper gastrointestinal tract and you also have constipation. Take Phenergan if needed for nausea, Carafate to help with your symptoms, the Colace stool softener for the next 2 to 4 days as prescribed. I recommend that you drink 1/4 to 1/2 of the magnesium citrate, then if after several hours you do not have bowel movement results drink another 1/4 to half. You may need to take the colace stool softener for the next 2-4 days as well as prescribed. Make sure you have a good diet - increased vegetables, fruits, fiber, and fluids are very helpful to clear your bowels. Follow close with your primary care for additional monitoring of your kidneys and additional management. You were given some IV fluids tonight for dehydration from vomiting. Return if you worsen including severe worsening pain, vomiting, vomiting blood, fever, passing out, or any other concerning symptoms. Prescriptions: Sucralfate [Carafate 1 gm Tablet] 1 gm PO BID #14 tablet Docusate Sodium [Colace 100 mg Capsule] 100 mg PO ASDIR PRN #30 capsule PRN Reason: Promethazine HCl [Phenergan 25 mg Tablet] 25 mg PO Q6H PRN #15 tablet PRN Reason: Referrals: LISA VEGA PA-C [ALLIED HEALTH PROFESSIONAL] - Follow up as needed
--- NOTE | 2020-02-04 03:59 | RADIOLOGY REPORT (SQ) ---
EXAM DESCRIPTION: XR ABDOMEN 2 VIEWS SUPINE ERECT COMPLETED DATE/TME: 02/04/2020 02:15 CLINICAL HISTORY: 59 years, Female, abd swelling, vomiting, no recent bowel movement COMPARISON: None. NUMBER OF VIEWS: 3 TECHNIQUE: LIMITATIONS: None. FINDINGS: Nonspecific gas pattern. Significant hard stool in the proximal colon. Cholecystectomy changes. No free air. No calculi are identified projecting over the kidneys, expected course of the ureters, or the urinary bladder.. Osteoarthritis IMPRESSION: Significant hard stool in the proximal colon copyright 2010 [employer]- All Rights Reserved
[2020-02-04] MEDS ORDERED: LIDOCAINE 2% VISCOUS SOLN 15 ML UDCUP PO ONE (04:08)
[2020-02-04] MEDS ORDERED: MAG HYDROX/AL HYDROX/SIMETH SUSP 30 ML UDCUP PO ONE (04:08)
[2020-02-04] MEDS ORDERED: METOCLOPRAMIDE HCL ORAL SOLN 10 MG/10 ML UDCUP PO ONE (04:08)
[2020-02-04] MEDS ORDERED: NORMAL SALINE 500 ML IV ONE (04:09)
[2020-02-04] MEDS ORDERED: MAGNESIUM CITRATE 296 ML BOTTLE PO ONE (05:26)
[2020-02-04] MEDS ORDERED: ONDANSETRON ODT 4 MG TAB (6 TAB/ER DISP) PO PRN (05:26)
[2020-02-04 05:48] VITALS: BP 155/104
--- NOTE | 2020-02-04 11:44 | EKG REPORT ---
SEVERITY:- OTHERWISE NORMAL ECG - SINUS TACHYCARDIA : Confirmed by: Ania Lawson 04-Feb-2020 11:43:04
== END 2020-02-04 05:48 | disposition home or self-care (01) ==
LOC: ER 22:58
DX: R07.9 Chest pain, unspecified (principal); R10.10 Upper abdominal pain, unspecified; R11.2 Nausea with vomiting, unspecified; K59.00 Constipation, unspecified
CPT/HCPCS: 93005; 99285; 96360; 36415; 83690; 85025; 80053; 81001; 84484; 83880; 74019; 71046; 93010; J3490 ×2; S0119; J7040

== ENCOUNTER 2020-06-06 17:05 | Emergency (ER) | payer BC ==
[2020-06-06 17:59] LABS: ABSOLUTE BASOPHILS # (AUTO) 0.1 10^3/uL (0.0-0.2); ABSOLUTE EOSINOPHILS # (AUTO) 0.4 10^3/uL (0.0-0.6); ABSOLUTE LYMPHOCYTES (AUTO) 1.6 10^3/uL (0.5-4.7); ABSOLUTE MONOCYTES (AUTO) 0.8 10^3/uL (0.1-1.4); ABSOLUTE NEUT (AUTO) 7.2 10^3/uL (1.7-8.2); HEMATOCRIT 33.2 % (36.0-47.0); HEMOGLOBIN 11.1 g/dL (12.0-15.5); LYMPHOCYTES % (AUTO) 15.7 % (13-45); MEAN CORPUSCULAR HGB CONC 33.5 g/dL (32.0-36.0); MEAN CORPUSCULAR VOLUME 89 fl (80-97); MONOCYTES % (AUTO) 8.1 % (3-13); PLATELET COUNT 232 10^3/uL (150-450); RED BLOOD COUNT 3.71 10^6/uL (3.72-5.28); RED CELL DISTRIBUTION WIDTH 14.3 % (11.5-14.0); SEGMENTED NEUTROPHILS % (AUTO) 71.2 % (42-78); TOTAL CELLS COUNTED % (AUTO) 100 %; WHITE BLOOD COUNT 10.1 10^3/uL (4.0-10.5)
[2020-06-06] MEDS ORDERED: LABETALOL HCL INJ 20 MG/4 ML DISP.SYRIN IV ONE (18:36)
[2020-06-06] MEDS ORDERED: METOCLOPRAMIDE HCL INJ/PF 10 MG/2 ML SDV IV ONE (18:36)
[2020-06-06] MEDS ORDERED: DIPHENHYDRAMINE HCL 50 MG/ML VIAL IV ONE (18:36)
[2020-06-06] MEDS ORDERED: ONDANSETRON HCL INJ/PF 4 MG/2 ML SDV IV ONE (18:57)
[2020-06-06] MEDS ORDERED: FENTANYL CITRATE INJ/PF 100 MCG/2 ML AMPUL IV ONE (18:57)
[2020-06-06 19:47] LABS: ALBUMIN 3.7 g/dL (3.5-5.0); ALKALINE PHOSPHATASE 158 U/L (38-126); ANION GAP 13 (5-19); ASPARTATE AMINO TRANSFERASE 35 U/L (14-36); BILIRUBIN,DIRECT 0.2 mg/dL (0.0-0.4); BILIRUBIN,TOTAL 0.4 mg/dL (0.2-1.3); BLOOD UREA NITROGEN 78 mg/dL (7-20); CALCIUM 8.7 mg/dL (8.4-10.2); CARBON DIOXIDE 19 mmol/L (22-30); CHLORIDE 104 mmol/L (98-107); CREATINE KINASE 44 U/L (30-135); GLUCOSE 233 mg/dL (75-110); TOTAL PROTEIN 7.2 g/dL (6.3-8.2)
[2020-06-06 19:57] LABS: CREATINE KINASE MB 1.09 ng/mL (<4.55)
[2020-06-06 19:58] LABS: TROPONIN I < 0.012 ng/mL
[2020-06-06 20:17] VITALS: BP 146/81
--- NOTE | 2020-06-06 20:33 | ER Document Report ---
Entered by RODOLFO MCKEON SCRIBE 06/06/20 1749 Acting as scribe for:DEBBIE CUNNINGHAM DO ED Respiratory Problem - General Stated Complaint: DIFFICULTLY BREATHING/FAST HEART BEAT Time Seen by Provider: 06/06/20 17:40 Primary Care Provider: AZALIA FUENTES MD [Primary Care Provider] - Follow up as needed Mode of Arrival: Ambulatory Information source: Patient Notes: This 60 year old female patient presents to the emergency department today with complaints of nausea and vomiting. Patient reports that she was seen here a few days ago for nausea and vomiting but today she developed epigastric abdominal pain which is new. Patient reports she has been unable to keep down her medications today. Patient has known renal disease and is due to have a fistula placed next week for future dialysis. TRAVEL OUTSIDE OF THE [place] IN LAST 30 DAYS: No - HPI Onset: Last week Severity: Moderate - Related Data Allergies/Adverse Reactions: No Known Allergies Allergy (Verified 02/03/20 23:56) Past Medical History - General Information source: Patient - Social History Smoking Status: Never Smoker Cigarette use (# per day): No Frequency of alcohol use: None Drug Abuse: None Family History: Reviewed & Not Pertinent - Past Medical History Cardiac Medical History: Reports: Hx Hypercholesterolemia, Hx Hypertension Endocrine Medical History: Reports: Hx Diabetes Mellitus Type 2 GI Medical History: Reports: Hx Hiatal Hernia Musculoskeletal Medical History: Reports Hx Arthritis Psychiatric Medical History: Reports: Hx Depression Past Surgical History: Reports: Hx Abdominal Surgery - hernia, Hx Bowel Surgery - gastric, Hx Section, Hx Cholecystectomy - Immunizations Hx Diphtheria, Pertussis, Tetanus Vaccination: Yes Review of Systems - Review of Systems Constitutional: denies: Fever EENT: No symptoms reported Cardiovascular: denies: Chest pain Respiratory: denies: Short of breath Gastrointestinal: See HPI, Abdominal pain, Nausea, Vomiting Genitourinary: No symptoms reported Female Genitourinary: No symptoms reported Musculoskeletal: No symptoms reported Skin: No symptoms reported Hematologic/Lymphatic: No symptoms reported Neurological/Psychological: No symptoms reported -: Yes All other systems reviewed and negative Physical Exam - Vital signs Vitals: Temp Pulse Ox 97.6 F 99 06/06/20 17:22 06/06/20 17:22 - Notes Notes: Physical Exam: General: Alert, appears well. HEENT: Normocephalic. Atraumatic. PERRL. Extraocular movements intact. Oropharynx clear. Neck: Supple. Non-tender. Respiratory: No respiratory distress. Clear and equal breath sounds bilaterally. Cardiovascular: Regular rate and rhythm. Abdominal: Obese. Epigastric tenderness with palpation. No distension. Normal Bowel Sounds. Back: No gross abnormalities. Extremities: Moves all four extremities. Upper extremities: Normal inspection. Normal ROM. Lower extremities: Normal inspection. No edema. Normal ROM. Neurological: Normal cognition. AAOx4. Normal speech. Psychological: Normal affect. Normal Mood. Skin: Warm. Dry. Normal color. Course - Re-evaluation Re-evalutation: 06/06/20 20:23 MDM 60 year old with nausea and vomiting and mild elevation of lipase consisten t with pancreatits. Nondrinker and has no gallbladder. She feels improved here. No further nausea. She had a rather elevated BP earlier but could not tolerate her outpt blood pressure medicines. She does have local follow up Dr. Fuentes and is getting plugged in for nephrology and HD. 06/17/20 17:14 We did discuss being admitted but her preference at the time of the visit is to go home. We did discuss return precautions. - Vital Signs Vital signs: Temp Pulse Resp BP Pulse Ox 97.6 F 19 146/81 H 96 06/06/20 17:22 06/06/20 20:01 06/06/20 20:00 06/06/20 20:01 - Laboratory Result Diagrams: 06/06/20 17:42 06/06/20 19:15 Laboratory results interpreted by me: 06/06/20 06/06/20 17:42 19:15 RBC 3.71 L Hgb 11.1 L Hct 33.2 L RDW 14.3 H Sodium 135.8 L Carbon Dioxide 19 L BUN 78 H Creatinine 7.01 H Est GFR ( Amer) 7 L Est GFR (MDRD) Non-Af 6 L Glucose 233 H Alkaline Phosphatase 158 H Lipase 320.2 H - Diagnostic Test Radiology reviewed: Reports reviewed - EKG Interpretation by Me EKG shows normal: Sinus rhythm Rate: Normal, Tachycardia - Sinus Tachy 112 BPM normal axis no st elevation or depression my interpretation. Rhythm: NSR Discharge - Discharge Clinical Impression: Acute pancreatitis Qualifiers: Pancreatitis type: unspecified pancreatitis type Acute pancreatitis complication: unspecified Qualified Code(s): K85.90 - Acute pancreatitis without necrosis or infection, unspecified Hypertension Qualifiers: Hypertension type: unspecified Qualified Code(s): I10 - Essential (primary) hypertension Chronic renal disease Qualifiers: Chronic kidney disease stage: stage 5, not on chronic dialysis Qualified Code(s): N18.5 - Chronic kidney disease, stage 5 Condition: Stable Disposition: HOME, SELF-CARE Instructions: Clear Liquid Diet ([facility]), Kidney Failure ([facility]), Pancreatitis ([facility]) Additional Instructions: Clear liquids as discussed. Rest. Call your doctor Monday for follow up. Please return here for chest pain, shortness of breath return of abdominal pain or persistent vomiting. Prescriptions: Promethazine HCl 12.5 mg MN TID #12 supp.rect Forms: Elevated Blood Pressure Referrals: AZALIA FUENTES MD [Primary Care Provider] - Follow up as needed I personally performed the services described in the documentation, reviewed and edited the documentation which was dictated to the scribe in my presence, and it accurately records my words and actions.
--- NOTE | 2020-06-06 20:33 | RADIOLOGY REPORT (SQ) ---
EXAM DESCRIPTION: X-ray, single view of the chest CLINICAL HISTORY: 60 years Female, bed 7 difficulty breathing COMPARISON: None. FINDINGS: Lungs: Lung volumes are low. There is minimal linear volume loss in the right upper lobe which is stable. No acute process is seen. No focal consolidation or edema. No pleural effusion or pneumothorax. Mediastinum: Heart size is enlarged but stable. Bones: Osseous structures are normal. IMPRESSION: No acute process. No significant interval change.
--- NOTE | 2020-06-06 22:39 | EKG REPORT ---
SEVERITY:- OTHERWISE NORMAL ECG - SINUS TACHYCARDIA : Confirmed by: Reuben Castaneda MD 06-Jun-2020 22:38:58
== END 2020-06-06 20:43 | disposition home or self-care (01) ==
LOC: ER 17:05
DX: K85.90 Acute pancreatitis without necrosis or infection, unspecified (principal); R11.2 Nausea with vomiting, unspecified; R10.13 Epigastric pain; R10.816 Epigastric abdominal tenderness; I12.0 Hypertensive chronic kidney disease with stage 5 chronic kidney disease or end stage renal disease; E11.22 Type 2 diabetes mellitus with diabetic chronic kidney disease; N18.5 Chronic kidney disease, stage 5; Z90.49 Acquired absence of other specified parts of digestive tract
CPT/HCPCS: 93005; 99284; 96374; 96375; 36415; 82553; 82550; 83690; 85025; 80053; 84484; 71045; 93010; J1200; J3010; J3490; J2765; J2405

== ENCOUNTER → 2020-06-12 | Outpatient (CLI) | payer BC ==
[2020-06-14 07:37] LABS: HEPATITIS C VIRUS AB <0.1 s/co ratio (0.0-0.9)
[2020-06-14 11:06] LABS: HEPATITS B SURFACE ANTIGEN Negative (Negative)
== END ==
LOC: OD 15:11
PROVIDERS: ATTEND Physician Assistant Medical
DX: N18.5 Chronic kidney disease, stage 5 (principal); Z11.59 Encounter for screening for other viral diseases
CPT/HCPCS: 36415; 86317; 86704; 86803; 86804; 87340

== ENCOUNTER 2020-08-07 11:52 | Day surgery (SDC) | payer BC ==
[2020-08-07] MEDS ORDERED: PROPOFOL INJ 200 MG/20 ML VIAL IV ONE (13:52)
--- NOTE | 2020-08-07 14:35 | Operative Report ---
Operative Report DATE OF SURGERY: 08/07/20 Operative Report: Pre-op diagnosis: Melena and change in bowel habit Post-op diagnosis: 1. Normal EGD status post gastric bypass 2. Limited view of the colon Surgery: Upper endoscopy with biopsy and Colonoscopy Medications: as per anesthesia Tissue removed: Procedure: After informed consent obtained from patient, patient's pharynx was sprayed with Hurricane and conscious sedation was achieved. The upper endoscope was then inserted into the esophagus under direct vision and advanced into the stomach and further into the jejunum. Detailed examination of the proximal jejunum, gastric remnant and the esophagus was then performed. A digital rectal examination was performed and this was unremarkable. The colonoscope was inserted into the rectum and advanced to the cecum. The appendiceal orifice and the terminal ileum were both identified. The mucosa was examined into details as the colonoscope was slowly pulled out of the patient. The endoscope was retroflexed in the rectum. Patient tolerated the procedure well. Findings Esophagus: Normal Gastric remnant: Normal Proximal jejunum: Normal View of the colon from the cecum to the sigmoid colon was limited due to retained stool. Rectum: Normal except for internal hemorrhoids Plan: Repeat colonoscopy with better prep. OPERATION: .
[2020-08-07 15:02] VITALS: BP 170/81
== END 2020-08-07 15:16 | disposition home or self-care (01) ==
LOC: END 11:52
PROVIDERS: ATTEND Internal Medicine Gastroenterology
DX: K29.50 Unspecified chronic gastritis without bleeding (principal); K64.8 Other hemorrhoids; K92.1 Melena; I12.0 Hypertensive chronic kidney disease with stage 5 chronic kidney disease or end stage renal disease; N18.6 End stage renal disease; E11.22 Type 2 diabetes mellitus with diabetic chronic kidney disease; D63.1 Anemia in chronic kidney disease; K21.0 Gastro-esophageal reflux disease with esophagitis; E78.00 Pure hypercholesterolemia, unspecified; K59.00 Constipation, unspecified; Z98.84 Bariatric surgery status; M13.80 Other specified arthritis, unspecified site; E66.9 Obesity, unspecified; Z79.4 Long term (current) use of insulin; Z79.84 Long term (current) use of oral hypoglycemic drugs; Z79.899 Other long term (current) drug therapy; Z91.048 Other nonmedicinal substance allergy status; Z03.818 Encounter for observation for suspected exposure to other biological agents ruled out
CPT/HCPCS: 43239; 45378; 82962; 88342 ×2; 88305 ×2; 00813; U0003; J2704; C9803; 813; 87635

== ENCOUNTER 2020-08-19 17:53 | Inpatient (IN) | payer BC ==
[2020-08-19] MEDS ORDERED: NALOXONE HCL INJ 2 MG/2 ML DISP.SYRIN ONE (18:03)
[2020-08-19 18:27] LABS: INTERNATIONAL RATION (INR) 1.16
[2020-08-19 18:29] LABS: HEMATOCRIT 29.8 % (36.0-47.0); HEMOGLOBIN 10.1 g/dL (12.0-15.5); MEAN CORPUSCULAR HEMOGLOBIN 31.9 pg (27.0-33.4); MEAN CORPUSCULAR HGB CONC 33.8 g/dL (32.0-36.0); MEAN CORPUSCULAR VOLUME 94 fl (80-97); PLATELET COUNT 126 10^3/uL (150-450); RED BLOOD COUNT 3.15 10^6/uL (3.72-5.28); RED CELL DISTRIBUTION WIDTH 13.3 % (11.5-14.0); WHITE BLOOD COUNT 6.2 10^3/uL (4.0-10.5)
[2020-08-19 18:31] LABS: VENOUS BLOOD BASE EXCESS -3.8 mmol/L; VENOUS BLOOD HCO3 21.3 mmol/L (20-32); VENOUS BLOOD PCO2 38.6 mmHg (35-63); VENOUS BLOOD PH 7.36 (7.30-7.42)
[2020-08-19 18:41] LABS: ALBUMIN 2.8 g/dL (3.5-5.0); ALKALINE PHOSPHATASE 222 U/L (38-126); ANION GAP 9 (5-19); ASPARTATE AMINO TRANSFERASE 253 U/L (14-36); BILIRUBIN,DIRECT 0.5 mg/dL (0.0-0.4); BILIRUBIN,TOTAL 0.5 mg/dL (0.2-1.3); BLOOD UREA NITROGEN 33 mg/dL (7-20); CALCIUM 7.9 mg/dL (8.4-10.2); CARBON DIOXIDE 22 mmol/L (22-30); CHLORIDE 101 mmol/L (98-107); GLUCOSE 245 mg/dL (75-110); POTASSIUM 4.8 mmol/L (3.6-5.0); TOTAL PROTEIN 5.6 g/dL (6.3-8.2)
[2020-08-19] MEDS ORDERED: NORMAL SALINE 250 ML IV ONE (18:42)
[2020-08-19] MEDS ORDERED: NALOXONE HCL INJ 2 MG/2 ML DISP.SYRIN IV ONE (18:43)
[2020-08-19 18:54] LABS: ABSOLUTE LYMPHOCYTES# (MANUAL) 0.2 10^3/uL (0.5-4.7); ABSOLUTE MONOCYTES # (MANUAL) 0.1 10^3/uL (0.1-1.4); BAND NEUTROPHILS % (MANUAL) 2 % (3-5); BASOPHILS % (MANUAL) 0 % (0-2); EOSINOPHILS % (MANUAL) 0 % (0-6); LYMPHOCYTES % (MANUAL) 3 % (13-45); MONOCYTES % (MANUAL) 2 % (3-13); SEGMENTED NEUTROPHILS % (MAN) 93 % (42-78); TOTAL CELLS COUNTED 100
[2020-08-19 18:55] LABS: PLATELET COMMENT DECREASED; RBC MORPHOLOGY COMMENT NORMO-CYTIC/CHROMIC
--- NOTE | 2020-08-19 19:14 | RADIOLOGY REPORT (SQ) ---
EXAM DESCRIPTION: CHEST SINGLE VIEW IMAGES COMPLETED DATE/TIME: 08/19/2020 7:02 pm REASON FOR STUDY: sob COMPARISON: 06/06/2020 EXAM PARAMETERS: NUMBER OF VIEWS: One view. TECHNIQUE: Single frontal radiographic view of the chest acquired. RADIATION DOSE: NA LIMITATIONS: None. FINDINGS: LUNGS AND PLEURA: Chronic elevation right diaphragm. Trace of fluid in the right major fi ssure. No developing nodules or infiltrate. No pneumothorax. MEDIASTINUM AND HILAR STRUCTURES: No masses. Contour normal. HEART AND VASCULAR STRUCTURES: Heart normal in size. Normal vasculature. BONES: No acute findings. HARDWARE: None in the chest. OTHER: Right central line tip overlying SVC. IMPRESSION: NO ACUTE RADIOGRAPHIC FINDING IN THE CHEST. TECHNICAL DOCUMENTATION: JOB ID: [id number] 2010 [employer]- All Rights Reserved Reading location - IP/workstation name: [email or web address]
[2020-08-19 20:48] LABS: APPEARANCE,URINE CLEAR; BILIRUBIN,URINE NEGATIVE (NEGATIVE); COLOR,URINE YELLOW; GLUCOSE, URINE NEGATIVE (NEGATIVE); KETONES,URINE NEGATIVE (NEGATIVE); LEUKOCYTE ESTERASE,URINE NEGATIVE (NEGATIVE); NITRITE,URINE NEGATIVE (NEGATIVE); PROTEIN,URINE 100 mg/dL (NEGATIVE); URINE SPECIFIC GRAVITY 1.014; UROBILINOGEN,URINE NEGATIVE mg/dL (<2.0)
--- NOTE | 2020-08-19 21:02 | RADIOLOGY REPORT (SQ) ---
EXAM DESCRIPTION: CT HEAD WITHOUT IV CONTRAST COMPLETED DATE/TME: 08/19/2020 18:42 CLINICAL HISTORY: 60 years, Female, ams COMPARISON: None. TECHNIQUE: Axial images without IV contrast. Sagittal coronal reconstruction. This exam was performed according to our departmental dose-optimization program, which includes automated exposure control, adjustment of the mA and/or kV according to patient size and/or use of iterative reconstruction technique.. Images stored on PACS. All CT scanners at this facility use dose modulation, iterative reconstruction, and/or weight based dosing when appropriate to reduce radiation dose to as low as reasonably achievable (ALARA). FINDINGS: Normal size ventricles. Incidental midline normal variant cavum septum pellucidum. No suspicious intra-axial or extra-axial abnormality. Atherosclerotic disease. Paranasal sinuses, mastoid air cells and bony calvarium without acute findings. IMPRESSION: No acute findings in the head.
[2020-08-19] MEDS ORDERED: ACETAMINOPHEN 325 MG TABLET PO ONE (21:06)
[2020-08-19] MEDS ORDERED: HYDROMORPHONE HCL INJ/PF 2 MG/ML AMPULE IV ONE (21:06)
[2020-08-19] MEDS ORDERED: CEFTRIAXONE 1 GM/D5W RTU 1 GM/50 ML RTUPB IV ONE (21:07)
--- NOTE | 2020-08-19 21:10 | ER Document Report ---
ED General - General Chief Complaint: Possible Overdose Stated Complaint: POSSIBLE SEPSIS Primary Care Provider: AZALIA FUENTES MD [Primary Care Provider] - Follow up as needed Mode of Arrival: Medic Information source: Relative, Emergency Med Personnel Notes: Patient is a 60-year-old female presenting to the emergency department via EMS chief complaint of altered mental status. Patient was at another facility yesterday and had an attempt was made to place a right-sided AV fistula without success. Patient does dialysis normally Monday and . Normally the dialysis is done through the catheter but the patient is now in need of a more permanent access point. Today patient's states that in the afternoon the patient was complaining of being uncomfortable, felt like she had a fever and was sweating. He states shortly thereafter the patient became rather unresponsive and he activated EMS. EMS state that the patient was minimally responsive at the home and brought the patient in for evaluation. IV access was obtained but otherwise no interventions were made. No one else at home is ill. Patient is a known renal failure patient with diabetes and hypertension. TRAVEL OUTSIDE OF THE [place] IN LAST 30 DAYS: No - HPI Onset: This evening Onset/Duration: Persistent Quality of pain: No pain Severity: None Associated symptoms: Fever, Nausea, Slow to respond. denies: Chest pain, Productive cough, Diarrhea, Vomiting Exacerbated by: Denies Relieved by: Denies Similar symptoms previously: No Recently seen / treated by doctor: No - Related Data Allergies/Adverse Reactions: adhesive tape Allergy (Severe, Verified 08/19/20 18:59) rash Past Medical History - General Information source: Emergency Med Personnel, [facility] Records Cannot obtain history due to: Altered mental status - Social History Smoking Status: Former Smoker Chew tobacco use (# tins/day): No Frequency of alcohol use: None Drug Abuse: None Lives with: Family, Spouse/Significant other Family History: Reviewed & Not Pertinent Patient has suicidal ideation: No Patient has homicidal ideation: No - Past Medical History Cardiac Medical History: Reports: Hx Hypercholesterolemia, Hx Hypertension Denies: Hx Coronary Artery Disease, Hx Heart Attack Pulmonary Medical History: Denies: Hx Asthma, Hx Bronchitis, Hx COPD, Hx Pneumonia Neurological Medical History: Denies: Hx Cerebrovascular Accident, Hx Seizures Endocrine Medical History: Reports: Hx Diabetes Mellitus Type 2 Renal/ Medical History: Reports: Hx End Stage Renal Disease. Denies: Hx Peritoneal Dialysis GI Medical History: Reports: Hx Hiatal Hernia Musculoskeletal Medical History: Reports Hx Arthritis Psychiatric Medical History: Reports: Hx Depression Past Surgical History: Reports: Hx Abdominal Surgery - hernia, Hx Bowel Surgery - gastric, Hx Section, Hx Cholecystectomy. Denies: Hx Hysterectomy - Immunizations Hx Diphtheria, Pertussis, Tetanus Vaccination: Yes Review of Systems - Review of Systems -: Yes ROS unobtainable due to patient's medical condition Physical Exam - Vital signs Vitals: Temp Resp BP Pulse Ox 99.8 F 23 H 83/59 L 93 08/19/20 18:00 08/19/20 18:00 08/19/20 18:00 08/19/20 18:00 - Notes Notes: PHYSICAL EXAMINATION: GENERAL: Well-appearing, well-nourished and in no acute distress. HEAD: Atraumatic, normocephalic. EYES: Pupils equal approximately 1 mm and sluggishly reactive to light, extraocular movements intact, sclera anicteric, conjunctiva are normal. ENT: nares patent, oropharynx clear without exudates. Tacky mucous membranes. NECK: Normal range of motion, supple without lymphadenopathy, no appreciable JVD LUNGS: Lungs clear to auscultation bilaterally and equal. No wheezes rales or rhonchi. HEART: Regular rate and rhythm without murmurs ABDOMEN: Soft, morbidly obese nontender, normal bowel sounds. No guarding, no rebound. No masses appreciated. Old midline scar is noted to the abdomen EXTREMITIES: Passive full range of motion, there is minimal lower extremity jose a. No cyanosis. 2+ pulses x4 NEUROLOGICAL: Patient does arouse to sternal rub answers a few questions with yes or no and is somnolent again. Patient does not follow commands. Remainder of neurologic exam is unobtainable at this time. SKIN: Warm, Dry, and intact. Normal turgor, no rashes or lesions noted. Course - Re-evaluation Re-evalutation: 08/19/20 21:28 At time of presentation patient was moved from [facility] gurney to hospital bed IV access was obtained EKG was obtained. Patient was given 1 mg of Narcan IV which did result in the patient being much more awake. Patient was asked has many medical questions as possible while she was awake. Patient denies travel history trauma history or obvious sick contacts she did report having the procedure for possible fistula placement done. Patient states she only took 1 of her oxycodone tablets today. Laboratory EKG and radiologic studies were initiated. Patient's did present to the emergency department and was able to answer most of our questions he is the one that gave us the majority of the HPI. Patient had been here for some time and became quite somnolent again and also it was noted that the patient had lower than normal blood pressure she was given a 250 cc bolus of normal saline and was also given 2 mg IV Narcan. Patient once again was much more alert and oriented at this time. 08/19/20 21:32 At about 2100 the patient was noted to have a fever of 102 orally. Patient was having shaking chills and was also complaining of increased pain to her low back. Patient was given Rocephin 1 g IV acetaminophen 975 mg p.o. Patient's blood pressure did respond to the fluid bolus. I discussed the patient's presentation and laboratory EKG and radiologic results with the patient's primary care provider he is requesting admission to the hospital for observation he requested 75 cc an hour of normal saline for maintenance. A call has been placed to Dr. Jameson nephrology on-call to advise of a patient being admitted who does require dialysis. Patient and are agreeable with care plan at this time. - Vital Signs Vital signs: Temp Pulse Resp BP Pulse Ox 98.4 F 21 H 90/56 L 95 08/19/20 19:16 08/19/20 19:16 08/19/20 19:16 08/19/20 19:16 - Laboratory Result Diagrams: 08/19/20 18:01 08/19/20 18:01 Laboratory results interpreted by me: 08/19/20 08/19/20 08/19/20 18:01 18:01 19:40 RBC 3.15 L Hgb 10.1 L Hct 29.8 L Plt Count 126 L Seg Neuts % (Manual) 93 H Band Neutrophils % 2 L Lymphocytes % (Manual) 3 L Monocytes % (Manual) 2 L Abs Lymphs (Manual) 0.2 L Sodium 132.2 L BUN 33 H Creatinine 5.42 H Est GFR ( Amer) 10 L Est GFR (MDRD) Non-Af 8 L Glucose 245 H Calcium 7.9 L Direct Bilirubin 0.5 H AST 253 H ALT 63 H Alkaline Phosphatase 222 H Ammonia < 8.7 L Total Protein 5.6 L Albumin 2.8 L Urine Protein Urine Ascorbic Acid 08/19/20 20:33 RBC Hgb Hct Plt Count Seg Neuts % (Manual) Band Neutrophils % Lymphocytes % (Manual) Monocytes % (Manual) Abs Lymphs (Manual) Sodium BUN Creatinine Est GFR ( Amer) Est GFR (MDRD) Non-Af Glucose Calcium Direct Bilirubin AST ALT Alkaline Phosphatase Ammonia Total Protein Albumin Urine Protein 100 H Urine Ascorbic Acid 20 H - Diagnostic Test Radiology reviewed: Reports reviewed - EKG Interpretation by Me EKG shows normal: Sinus rhythm Rate: Normal Rhythm: NSR When compared to previous EKG there are: Previous EKG unavailable Critical Care Note - Critical Care Note Total time excluding time spent on procedures (mins): 45 Comments: Please allow 45 minutes of critical care time spent obtaining history from patient or surrogate, discussions with consultants, development of treatment plan with patient or surrogate, evaluation of patient's response to treatment, examination of patient. This also includes ordering and reviewing laboratory, EKG and / or radiologic studies, performing and reassessing treatments and interventions as well as reviewing previous visits and old charts. This is exclusive of separately billable procedures. Discharge - Discharge Clinical Impression: ESRD on dialysis Altered mental status Qualifiers: Altered mental status type: somnolence Qualified Code(s): R40.0 - Somnolence Chronic renal disease Qualifiers: Chronic kidney disease stage: unspecified stage Qualified Code(s): N18.9 - Chronic kidney disease, unspecified Fever Qualifiers: Fever type: unspecified Qualified Code(s): R50.9 - Fever, unspecified Condition: Fair Disposition: ADMITTED OBSERVATION Admitting Provider: Zoya Unit Admitted: Telemetry Referrals: AZALIA FUENTES MD [Primary Care Provider] - Follow up as needed
[2020-08-19] MEDS ORDERED: NORMAL SALINE 1000 ML 1,000 ML IV ONE (21:14)
[2020-08-19] MEDS ORDERED: ONDANSETRON HCL INJ/PF 4 MG/2 ML SDV IV ONE (21:24)
[2020-08-20] MEDS ORDERED: DEXTROSE 50%-WATER 25 GM/50 ML DISP.SYRIN IV PRN ×2 (08:21)
[2020-08-20] MEDS ORDERED: GLUCAGON,HUMAN RECOMB 1 MG INJ IM PRN (08:21)
[2020-08-20] MEDS ORDERED: DEXTROSE 40% GEL 15 GM TUBE PO PRN ×2 (08:21)
[2020-08-20] MEDS ORDERED: AMLODIPINE BESYLATE 5 MG TABLET PO SCH (10:00)
[2020-08-20] MEDS ORDERED: (PENDING PHARMACY ID) (Magnesium Oxide [Magnesium] 500 MG) PO SCH (10:00)
[2020-08-20] MEDS ORDERED: (PENDING PHARMACY ID) (Calcitriol [Calcitriol] 0.5 MCG) PO SCH (10:00)
[2020-08-20] MEDS ORDERED: FUROSEMIDE 40 MG TABLET PO SCH (10:00)
[2020-08-20 10:07] LABS: ANION GAP 13 (5-19); BLOOD UREA NITROGEN 42 mg/dL (7-20); CARBON DIOXIDE 20 mmol/L (22-30); CHLORIDE 101 mmol/L (98-107); GLUCOSE 162 mg/dL (75-110); POTASSIUM 4.6 mmol/L (3.6-5.0)
[2020-08-20] MEDS: CEFTRIAXONE 1 GM/D5W RTU 1 GM/50 ML RTUPB IV SCH (10:30)
[2020-08-20] MEDS: CALCITRIOL 0.25 MCG CAPSULE PO SCH (10:30)
[2020-08-20] MEDS: CYANOCOBALAMIN (VITAMIN B-12) 1,000 MCG TABLET PO SCH (10:31)
[2020-08-20] MEDS: MAGNESIUM OXIDE 400 MG TABLET PO SCH (10:31)
[2020-08-20] MEDS: VITAMIN E (DL, ACETATE) 400 UNIT CAPSULE PO SCH (10:31)
[2020-08-20] MEDS: FERROUS SULFATE 325 MG TABLET PO SCH (10:31)
[2020-08-20] MEDS: ASCORBIC ACID 500 MG TABLET PO SCH (10:31)
[2020-08-20] MEDS: HYDRALAZINE HCL 50 MG TABLET PO SCH ×2 (10:31→17:10)
[2020-08-20] MEDS: ACETAMINOPHEN 325 MG TABLET PO PRN (12:28)
[2020-08-20] MEDS ORDERED: NORMAL SALINE 1000 ML 1,000 ML IV PRN (13:01)
--- NOTE | 2020-08-20 13:08 | PDOC CONSULTATION ---
Consultation Consult Date: 08/20/20 Provider Consulted: Renetta NUÑEZ Consult reason:: ESRD for HD. History of Present Illness Admission Date/PCP: 08/19/20 21:15 AZALIA FUENTES History of Present Illness: DANIEL BLANC is a 60 year old female with a background history of ESRD-recent new onset on hemodialysis on Fridays in the background of diabetes mellitus and hypertension was brought to the ER with history of altered mental status. Apparently she was having AV fistula placement in [facility] the other day by Dr. Todd. She has a right IJ catheter through which her dialysis is normally been undergoing since initiation of hemodialysis. She also mentions that there was some infection around the suture site of the IJ catheter which was removed by Dr. Todd. She also mentions yesterday she had a history of one episode of fever with chills. She does not recall the exact sequence of events after she came back from [facility] when she apparently passed out. Apparently she had to be given Narcan in the ER and she responded very well after that. Her surgical procedures were done under conscious sedation and she is also on Percocet. Currently she is awake and alert and is much better. She denies no anymore further chills or rigors.Does not feel right and she is having a fever but apparently without any chills. She has received a dose of IV Rocephin. She has no pain no redness or discharge around the right IJ catheter site. She is tender around the newly created nonfunctioning/poorly functioning right lower arm AV fistula.Last dialysis was on Monday as she missed dialysis yesterday as she was out in [place] for the procedure. She still continues to make urine. She denies any history of chest pain or shortness of breath. Labs and medic ations were reviewed. Past Medical History Cardiac Medical History: Reports: Hyperlipidemia, Hypertension-primary Denies: Coronary Artery Disease, Myocardial Infarction Pulmonary Medical History: Denies: Asthma, Bronchitis, Chronic Obstructive Pulmonary Disease (COPD), Pneumonia Neurological Medical History: Denies: Seizures Endocrine Medical History: Reports: Diabetes Mellitus Type 2 Renal/ Medical History: Reports: End Stage Renal Disease, Secondary Hyperparathyroidism GI Medical History: Reports: Hiatal Hernia Musculoskeltal Medical History: Reports: Arthritis Psychiatric Medical History: Reports: Depression Past Surgical History Past Surgical History: Reports: Section, Cholecystectomy Denies: Hysterectomy Social History Lives with: Family, Spouse/Significant other Smoking Status: Former Smoker Family History Parental Family History Reviewed: Yes - Negative for ESRD Children Family History Reviewed: No Sibling(s) Family History Reviewed.: No Medication/Allergy Home Medications: Duloxetine HCl [Cymbalta 30 Mg Capsule.Dr] 60 mg PO BID 03/11/13 Zolpidem Tartrate [Ambien 10 mg Tablet] 10 mg PO QHS 03/11/13 Magnesium Oxide [Magnesium] 500 mg PO DAILY 07/18/17 Clonidine HCl [Catapres] 0.3 mg PO TID 08/04/20 Linagliptin [Tradjenta] 5 mg PO DAILY 08/04/20 Alprazolam [Xanax 0.5 mg Tablet] 0.5 mg PO DAILYP PRN 08/19/20 Amlodipine Besylate 5 mg PO BID 08/19/20 Ascorbic Acid [Vitamin C 500 mg Tablet] 500 mg PO DAILY 08/19/20 Calcitriol 0.5 mcg PO DAILY 08/19/20 Cyanocobalamin (Vitamin B-12) [Vitamin B-12 1000 mcg Tablet] 1,000 mcg PO DAILY 08/19/20 Diclofenac Sodium 2 gm TOP QID 08/19/20 Ferrous Sulfate [Feosol 325 mg Tablet] 325 mg PO DAILY 08/19/20 Fluticasone Propionate [Flonase Allergy Relief] 1 spray NASL DAILY 08/19/20 Furosemide [Lasix 40 mg Tablet] 40 mg PO BID 08/19/20 Glimepiride [Amaryl 4 mg Tablet] 4 mg PO DAILY 08/19/20 Hydralazine HCl [Apresoline 50 mg Tablet] 50 mg PO BID 08/19/20 Insulin Glargine,Hum.rec.anlog [Lantus Insulin 100 Unit/1 ml 10 ml] 22 units SQ QAM 08/19/20 Insulin Lispro [Humalog Insulin (Lispro) 100 unit/mL] 0 units SQ .PERSLIDINGSCALE 08/19/20 Oxycodone HCl/Acetaminophen [Percocet 5-325 mg Tablet] 1 tab PO Q6HP PRN 08/19/20 Rosuvastatin Calcium [Crestor] 5 mg PO QPM 08/19/20 Vitamin E (Dl, Acetate) [Vitamin E 400 Unit Capsule] 400 unit PO DAILY 08/19/20 Allergies/Adverse Reactions: adhesive tape Allergy (Severe, Verified 08/19/20 18:59) rash Review of Systems Constitutional: PRESENT: chills, fatigue, fever(s), headache(s), night sweats, weakness. ABSENT: anorexia Nose, Mouth, and Throat: ABSENT: mouth pain, sore throat Cardiovascular: ABSENT: chest pain, dyspnea on exertion, edema, orthropnea, palpitations Respiratory: ABSENT: dyspnea, hemoptysis Gastrointestinal: ABSENT: abdominal pain, bloating, dysphagia, heartburn, hematemesis, hematochezia Genitourinary: ABSENT: dysuria, hematuria Musculoskeletal: ABSENT: deformity, joint swelling Integumentary: ABSENT: erythema, lesions, pruritus, rash Neurological: PRESENT: confusion. ABSENT: abnormal gait, abnormal movements, abnormal speech, numbness Psychiatric: ABSENT: hallucinations Hematologic/Lymphatic: ABSENT: easy bleeding, easy bruising, lymphadenopathy Physical Exam Vital Signs: Temp Pulse Resp BP Pulse Ox 102 F H 104 H 21 H 90/49 L 90 L 08/19/20 23:33 08/20/20 07:00 08/19/20 23:31 08/19/20 23:31 08/19/20 23:30 Intake & Output 08/19/20 08/20/20 08/21/20 06:59 06:59 06:59 Intake Total 300 Balance 300 Weight 117.934 kg 117.93 kg General appearance: PRESENT: no acute distress Eye exam: PRESENT: EOMI, PERRLA. ABSENT: scleral icterus Ear exam: PRESENT: normal external ear exam Mouth exam: PRESENT: moist. ABSENT: neck supple Neck exam: ABSENT: lymphadenopathy, meningismus, tenderness, thyromegaly, tracheal deviation Respiratory exam: PRESENT: clear to auscultation juancarlos, decreased breath sounds. ABSENT: crackles Cardiovascular exam: PRESENT: +S1, +S2 GI/Abdominal exam: PRESENT: normal bowel sounds, soft. ABSENT: organomegaly, tenderness Extremities exam: ABSENT: pedal edema Neurological exam: PRESENT: alert, awake, oriented to person, oriented to place Psychiatric exam: PRESENT: appropriate affect Skin exam: ABSENT: erythema, mottled, rash Results Laboratory Results: 08/19/20 18:01 08/20/20 08:55 08/19/20 08/19/20 08/19/20 18:01 18:01 18:01 WBC 6.2 RBC 3.15 L Hgb 10.1 L Hct 29.8 L MCV 94 MCH 31.9 MCHC 33.8 RDW 13.3 Plt Count 126 L Seg Neutrophils % Not Reportable VBG pH VBG pCO2 VBG HCO3 VBG Base Excess Sodium 132.2 L Potassium 4.8 Chloride 101 Carbon Dioxide 22 Anion Gap 9 BUN 33 H Creatinine 5.42 H Est GFR ( Amer) 10 L Glucose 245 H Lactic Acid 1.9 Calcium 7.9 L Total Bilirubin 0.5 AST 253 H Alkaline Phosphatase 222 H Ammonia Total Protein 5.6 L Albumin 2.8 L Urine Color Urine Appearance Urine pH Ur Specific Webster Urine Protein Urine Glucose (UA) Urine Ketones Urine Blood Urine Nitrite Ur Leukocyte Esterase Urine WBC (Auto) Urine RBC (Auto) 08/19/20 08/19/20 08/19/20 18:05 19:40 20:33 WBC RBC Hgb Hct MCV MCH MCHC RDW Plt Count Seg Neutrophils % VBG pH 7.36 VBG pCO2 38.6 VBG HCO3 21.3 VBG Base Excess -3.8 Sodium Potassium Chloride Carbon Dioxide Anion Gap BUN Creatinine Est GFR ( Amer) Glucose Lactic Acid Calcium Total Bilirubin AST Alkaline Phosphatase Ammonia < 8.7 L Total Protein Albumin Urine Color YELLOW Urine Appearance CLEAR Urine pH 5.0 Ur Specific Webster 1.014 Urine Protein 100 H Urine Glucose (UA) NEGATIVE Urine Ketones NEGATIVE Urine Blood NEGATIVE Urine Nitrite NEGATIVE Ur Leukocyte Esterase NEGATIVE Urine WBC (Auto) 0 Urine RBC (Auto) 1 08/19/20 08/20/20 08/20/20 21:30 00:13 08:55 WBC RBC Hgb Hct MCV MCH MCHC RDW Plt Count Seg Neutrophils % VBG pH VBG pCO2 VBG HCO3 VBG Base Excess Sodium 133.9 L Potassium 4.6 Chloride 101 Carbon Dioxide 20 L Anion Gap 13 BUN 42 H Creatinine 6.11 H Est GFR ( Amer) 9 L Glucose 162 H Lactic Acid 2.7 H 1.7 Calcium 8.0 L Total Bilirubin AST Alkaline Phosphatase Ammonia Total Protein Albumin Urine Color Urine Appearance Urine pH Ur Specific Webster Urine Protein Urine Glucose (UA) Urine Ketones Urine Blood Urine Nitrite Ur Leukocyte Esterase Urine WBC (Auto) Urine RBC (Auto) 08/19/20 18:01 Troponin I < 0.012 Impressions: Chest X-Ray 08/19/20 18:41 IMPRESSION: NO ACUTE RADIOGRAPHIC FINDING IN THE CHEST. Head CT 08/19/20 18:42 IMPRESSION: No acute findings in the head. Assessment & Plan - Diagnosis (1) Altered mental status Qualifiers: Altered mental status type: somnolence Qualified Code(s): R40.0 - Somnolence Plan: /Syncope. Fact that he responded to Narcan is highly indicative of narcotic overdose in the setting of conscious sedation plus the fact she is on Percocet. However its also highly likely that she became rather hypotensive in the setting of sepsis/bacteremia after she had sutures removed yesterday at the surgical office. The other differential would be infection after she had the surgery for the fistula also yesterday. Blood cultures are pending but she has been started on IV antibiotics. Mental status is almost back to baseline. She denies any history of focal deficits.Given the fact she is still has a fever, I am going to dose her with IV vancomycin. She might need to have revision/ change of her Rocephin once we get cultures back. (2) ESRD on dialysis Plan: Her last dialysis was on Monday. Currently she is not showing any signs of fluid overload or electrolyte imbalances that necessitates immediate dialysis. Plan for dialysis in the morning. Orders have been placed. I will be handing over the patient to Dr. Moura who will be covering the patient from tomorrow onwards. (3) Fever Qualifiers: Fever type: unspecified Qualified Code(s): R50.9 - Fever, unspecified Plan: Associated with chills suggestive of sepsis. She had a couple surgical procedures done yesterday and could have resulted in some amount of bacteremia. Blood cultures are pending and she has been begun on antibiotics by PCP.Since she already clearly continues to have a fever I am going to start her on v ancomycin besides the Rocephin that has been started by her PCP. The Rocephin might need to be changed once cultures come back. (4) Hypertension Qualifiers: Hypertension type: unspecified Qualified Code(s): I10 - Essential (primary) hypertension Plan: Low normal. I am going to hold some of her antihypertensives. If her blood pressure dropped significantly she will have to be worked for septic shock including plans to remove her PermCath which could be a source of infection. (5) Diabetes mellitus Qualifiers: Diabetes mellitus type: type 2 Diabetes mellitus long chain quiller tender insulin use: with long chain quiller tender use Diabetes mellitus complication status: with kidney complications Diabetes mellitus complication detail: with chronic kidney disease Chronic kidney disease stage: on chronic dialysis Qualified Code(s): E11.22 - Type 2 diabetes mellitus with diabetic chronic kidney disease; N18.6 - End stage renal disease; Z79.4 - snf (current) use of insulin; Z99.2 - Dependence on renal dialysis Plan: As per PCP.
[2020-08-20] MEDS: INSULIN LISPRO 100 UNIT/ML 3 ML VIAL SUBCUT SCH ×3 (13:11→22:19)
[2020-08-20] MEDS: HEPARIN SOD (PORCINE) 5,000 UNIT/ML 1 ML VIAL SUBCUT SCH ×2 (13:25→21:34)
--- NOTE | 2020-08-20 16:24 | PDOC H&P ---
History of Present Illness Admission Date/PCP: 08/19/20 21:15 AZALIA GINA History of Present Illness: DANIEL BLANC is a 60 year old female patient known to my practice who was brought to the ED by EMS activated by spouse who noticed that patient was less arousable and diaphoretic prompting his call for EMS assistance. Patient remain altered until administration of IV Narcan 3 mg total dose for her to become arousable enough to give medical history. She reported recent attempt at AV fistula graft for her HD session but told that her veins are too small. She had procedure done under reported conscious sedation. Also, she is on Percocet 5/325 mg for pain management. Importantly, her spouse reported episode of fever, diaphoresis and unwell feeling earlier during the day. She claimed to be always chilly. No reported chest pain, difficulty with breathing, coughing, nausea, v omiting, abdominal pain, or diarrhea. She denied exposure to anyone that is acutely sick or travel outside her usual environment. Her morbidities are as listed below. Se was advised hospitalization for further evaluation and management. Past Medical History Cardiac Medical History: Reports: Hyperlipidema, Hypertension Denies: Coronary Artery Disease, Myocardial Infarction Pulmonary Medical History: Denies: Asthma, Bronchitis, Chronic Obstructive Pulmonary Disease (COPD), Pneumonia Neurological Medical History: Denies: Seizures Endocrine Medical History: Reports: Diabetes Mellitus Type 2 Renal/ Medical History: Reports: End Stage Renal Disease GI Medical History: Reports: Hiatal Hernia Musculoskeltal Medical History: Reports: Arthritis Psychiatric Medical History: Reports: Depression Hematology: Reports: Anemia Past Surgical History Past Surgical History: Reports: Section, Cholecystectomy Denies: Hysterectomy Social History Lives with: Family, Spouse/Significant other Smoking Status: Former Smoker - Advance Directive Resuscitation Status: Full Code Family History Family History: Reviewed & Not Pertinent Parental Family History Reviewed: Yes Children Family History Reviewed: Yes Sibling(s) Family History Reviewed.: Yes Medication/Allergy Home Medications: Duloxetine HCl [Cymbalta 30 Mg Capsule.Dr] 60 mg PO BID 03/11/13 Zolpidem Tartrate [Ambien 10 mg Tablet] 10 mg PO QHS 03/11/13 Magnesium Oxide [Magnesium] 500 mg PO DAILY 07/18/17 Clonidine HCl [Catapres] 0.3 mg PO TID 08/04/20 Linagliptin [Tradjenta] 5 mg PO DAILY 08/04/20 Alprazolam [Xanax 0.5 mg Tablet] 0.5 mg PO DAILYP PRN 08/19/20 Amlodipine Besylate 5 mg PO BID 08/19/20 Ascorbic Acid [Vitamin C 500 mg Tablet] 500 mg PO DAILY 08/19/20 Calcitriol 0.5 mcg PO DAILY 08/19/20 Cyanocobalamin (Vitamin B-12) [Vitamin B-12 1000 mcg Tablet] 1,000 mcg PO DAILY 08/19/20 Diclofenac Sodium 2 gm TOP QID 08/19/20 Ferrous Sulfate [Feosol 325 mg Tablet] 325 mg PO DAILY 08/19/20 Fluticasone Propionate [Flonase Allergy Relief] 1 spray NASL DAILY 08/19/20 Furosemide [Lasix 40 mg Tablet] 40 mg PO BID 08/19/20 Glimepiride [Amaryl 4 mg Tablet] 4 mg PO DAILY 08/19/20 Hydralazine HCl [Apresoline 50 mg Tablet] 50 mg PO BID 08/19/20 Insulin Glargine,Hum.rec.anlog [Lantus Insulin 100 Unit/1 ml 10 ml] 22 units SQ QAM 08/19/20 Insulin Lispro [Humalog Insulin (Lispro) 100 unit/mL] 0 units SQ .PERSLIDINGSCALE 08/19/20 Oxycodone HCl/Acetaminophen [Percocet 5-325 mg Tablet] 1 tab PO Q6HP PRN 08/19/20 Rosuvastatin Calcium [Crestor] 5 mg PO QPM 08/19/20 Vitamin E (Dl, Acetate) [Vitamin E 400 Unit Capsule] 400 unit PO DAILY 08/19/20 Allergies/Adverse Reactions: adhesive tape Allergy (Severe, Verified 08/19/20 18:59) rash Review of Systems Constitutional: PRESENT: chills. ABSENT: fever(s), headache(s), weight gain, weight loss Eyes: PRESENT: visual disturbances Ears: ABSENT: hearing changes Nose, Mouth, and Throat: ABSENT: headache(s), sore throat, vertigo Cardiovascular: ABSENT: chest pain, dyspnea on exertion, edema, orthropnea, palpitations Respiratory: ABSENT: cough, hemoptysis, sputum Gastrointestinal: ABSENT: abdominal pain, constipation, diarrhea, hematemesis, hematochezia, nausea, vomiting Genitourinary: ABSENT: dysuria, hematuria Musculoskeletal: ABSENT: joint swelling Integumentary: PRESENT: diaphoresis - with reported episode of fever prior to her presentation to the ED. ABSENT: rash, wounds Neurological: ABSENT: abnormal gait, abnormal speech, confusion, dizziness, focal weakness, syncope Psychiatric: ABSENT: anxiety, depression, homidical ideation, suicidal ideation Endocrine: ABSENT: cold intolerance, heat intolerance, polydipsia, polyuria Hematologic/Lymphatic: ABSENT: easy bleeding, easy bruising, lymphadenopathy Allergic/Immunologic: ABSENT: seasonal rhinorrhea Physical Exam Vital Signs: Temp Pulse Resp BP Pulse Ox 102 F H 104 H 21 H 90/49 L 90 L 08/19/20 23:33 08/20/20 07:00 08/19/20 23:31 08/19/20 23:31 08/19/20 23:30 Intake & Output 08/19/20 08/20/20 08/21/20 06:59 06:59 06:59 Intake Total 300 Balance 300 Weight 117.934 kg General appearance: PRESENT: no acute distress, morbidly obese Head exam: PRESENT: atraumatic, normocephalic Eye exam: PRESENT: conjunctiva pink, EOMI, PERRLA. ABSENT: scleral icterus Ear exam: PRESENT: normal external ear exam Mouth exam: PRESENT: moist, tongue midline Respiratory exam: PRESENT: clear to auscultation juancarlos, decreased breath sounds - at lung bases Cardiovascular exam: PRESENT: RRR, +S1, +S2. ABSENT: diastolic murmur, rubs, systolic murmur Vascular exam: PRESENT: other - Trilysis catheter over right anterior chest wall for HD session. ABSENT: pallor GI/Abdominal exam: PRESENT: normal bowel sounds, soft. ABSENT: distended, guarding, mass, organolmegaly, rebound, tenderness Rectal exam: PRESENT: deferred Extremities exam: PRESENT: other - Dresing over her right arm from recent vascular procedure. ABSENT: pedal edema Neurological exam: PRESENT: alert, awake, oriented to person, oriented to place, oriented to time, oriented to situation, CN II-XII grossly intact. ABSENT: motor sensory deficit Psychiatric exam: PRESENT: appropriate affect, normal mood. ABSENT: homicidal ideation, suicidal ideation Skin exam: PRESENT: dry, warm Results Laboratory Results: 08/19/20 18:01 08/19/20 18:01 08/19/20 08/19/20 08/19/20 18:01 18:01 18:01 WBC 6.2 RBC 3.15 L Hgb 10.1 L Hct 29.8 L MCV 94 MCH 31.9 MCHC 33.8 RDW 13.3 Plt Count 126 L Seg Neutrophils % Not Reportable VBG pH VBG pCO2 VBG HCO3 VBG Base Excess Sodium 132.2 L Potassium 4.8 Chloride 101 Carbon Dioxide 22 Anion Gap 9 BUN 33 H Creatinine 5.42 H Est GFR ( Amer) 10 L Glucose 245 H Lactic Acid 1.9 Calcium 7.9 L Total Bilirubin 0.5 AST 253 H Alkaline Phosphatase 222 H Ammonia Total Protein 5.6 L Albumin 2.8 L Urine Color Urine Appearance Urine pH Ur Specific [place] Urine Protein Urine Glucose (UA) Urine Ketones Urine Blood Urine Nitrite Ur Leukocyte Esterase Urine WBC (Auto) Urine RBC (Auto) 08/19/20 08/19/20 08/19/20 18:05 19:40 20:33 WBC RBC Hgb Hct MCV MCH MCHC RDW Plt Count Seg Neutrophils % VBG pH 7.36 VBG pCO2 38.6 VBG HCO3 21.3 VBG Base Excess -3.8 Sodium Potassium Chloride Carbon Dioxide Anion Gap BUN Creatinine Est GFR ( Amer) Glucose Lactic Acid Calcium Total Bilirubin AST Alkaline Phosphatase Ammonia < 8.7 L Total Protein Albumin Urine Color YELLOW Urine Appearance CLEAR Urine pH 5.0 Ur Specific [place] 1.014 Urine Protein 100 H Urine Glucose (UA) NEGATIVE Urine Ketones NEGATIVE Urine Blood NEGATIVE Urine Nitrite NEGATIVE Ur Leukocyte Esterase NEGATIVE Urine WBC (Auto) 0 Urine RBC (Auto) 1 08/19/20 08/20/20 21:30 00:13 WBC RBC Hgb Hct MCV MCH MCHC RDW Plt Count Seg Neutrophils % VBG pH VBG pCO2 VBG HCO3 VBG Base Excess Sodium Potassium Chloride Carbon Dioxide Anion Gap BUN Creatinine Est GFR ( Amer) Glucose Lactic Acid 2.7 H 1.7 Calcium Total Bilirubin AST Alkaline Phosphatase Ammonia Total Protein Albumin Urine Color Urine Appearance Urine pH Ur Specific [place] Urine Protein Urine Glucose (UA) Urine Ketones Urine Blood Urine Nitrite Ur Leukocyte Esterase Urine WBC (Auto) Urine RBC (Auto) 08/19/20 18:01 Troponin I < 0.012 Impressions: Chest X-Ray 08/19/20 18:41 IMPRESSION: NO ACUTE RADIOGRAPHIC FINDING IN THE CHEST. Head CT 08/19/20 18:42 IMPRESSION: No acute findings in the head. Assessment & Plan - Diagnosis (1) Toxic metabolic encephalopathy Is this a current diagnosis for this admission?: Yes Plan: See admitting attending physician orders for details about care plan. (2) Probable sepsis Is this a current diagnosis for this admission?: Yes Plan: See admitting attending physician orders for details about care plan. (3) ESRD on dialysis Is this a current diagnosis for this admission?: Yes Plan: See admitting attending physician orders for details about care plan. 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 (5) Hypertension Qualifiers: Hypertension type: unspecified Qualified Code(s): I10 - Essential (primary) hypertension Is this a current diagnosis for this admission?: Yes Plan: See admitting attending physician orders for details about care plan. (6) Morbid obesity with BMI of 40.0-44.9, adult Is this a current diagnosis for this admission?: Yes Plan: See admitting attending physician orders for details about care plan. - Time Time Spent: 50 to 70 Minutes Medications reviewed and adjusted accordingly: Yes Anticipated Discharge Disposition: Home with Home Health Anticipated Discharge Timeframe: within 48 hours - Inpatient Certification Based on my medical assessment, after consideration of the patient's comorbidities, presenting symptoms, or acuity I expect that the services needed warrant INPATIENT care.: Yes I certify that my determination is in accordance with my understanding of Medicare's requirements for reasonable and necessary INPATIENT services [42 CFR 412.3e].: Yes Medical Necessity: Significant Comorbidiites Make Outpatient Treatment Too Risky, Need Close Monitoring Due to Risk of Patient Decompensation, Need For IV Fluids, Need For Continuous Telemetry Monitoring, Need for IV Antibiotics, Risk of Complication if Not Cared For in Hospital, Risk of Diagnosis Which Will Require Inpatient Eval/Care/Monitoring Post Hospital Care: D/C Insurance Verifier Documentation - Plan Summary Plan Summary: See admitting attending physician orders for details about care plan.
[2020-08-20] MEDS ORDERED: ROSUVASTATIN CALCIUM 5 MG PO SCH (18:00)
[2020-08-20] MEDS: OXYCODONE-ACETAMINOPHEN 5-325 MG TABLET PO PRN (18:50)
[2020-08-20] MEDS ORDERED: VANCOMYCIN HCL INJ 1000 MG VIAL IV ONE (19:40)
[2020-08-20] MEDS: ATORVASTATIN CALCIUM 10 MG TABLET PO SCH (22:30)
[2020-08-20] MEDS ORDERED: VANCOMYCIN HCL 2,000 MG in DEXTROSE 5%-WATER 500 ML IV ONE (23:00)
[2020-08-21] MEDS ORDERED: HEPARIN SOD (PORCINE) 1,000 UNIT/ML 10 ML VIAL IV PRN (05:00)
[2020-08-21] MEDS: PANTOPRAZOLE SODIUM 40 MG TABLET.DR PO SCH (05:13)
[2020-08-21] MEDS: HEPARIN SOD (PORCINE) 5,000 UNIT/ML 1 ML VIAL SUBCUT SCH ×3 (05:13→21:25)
[2020-08-21 05:41] LABS: HEMATOCRIT 29.9 % (36.0-47.0); HEMOGLOBIN 10.1 g/dL (12.0-15.5); MEAN CORPUSCULAR HEMOGLOBIN 31.3 pg (27.0-33.4); MEAN CORPUSCULAR HGB CONC 33.7 g/dL (32.0-36.0); MEAN CORPUSCULAR VOLUME 93 fl (80-97); RED BLOOD COUNT 3.22 10^6/uL (3.72-5.28); RED CELL DISTRIBUTION WIDTH 13.3 % (11.5-14.0); WHITE BLOOD COUNT 4.9 10^3/uL (4.0-10.5)
[2020-08-21 05:48] LABS: ALBUMIN 2.8 g/dL (3.5-5.0); ALKALINE PHOSPHATASE 305 U/L (38-126); ANION GAP 13 (5-19); ASPARTATE AMINO TRANSFERASE 235 U/L (14-36); BILIRUBIN,DIRECT 2.1 mg/dL (0.0-0.4); BILIRUBIN,TOTAL 2.3 mg/dL (0.2-1.3); BLOOD UREA NITROGEN 49 mg/dL (7-20); CALCIUM 8.5 mg/dL (8.4-10.2); CARBON DIOXIDE 20 mmol/L (22-30); CHLORIDE 101 mmol/L (98-107); GLUCOSE 180 mg/dL (75-110); POTASSIUM 4.2 mmol/L (3.6-5.0); TOTAL PROTEIN 5.7 g/dL (6.3-8.2)
[2020-08-21 06:10] LABS: PLATELET COUNT 84 10^3/uL (150-450)
[2020-08-21] MEDS: ACETAMINOPHEN 325 MG TABLET PO PRN (07:54)
[2020-08-21] MEDS: INSULIN LISPRO 100 UNIT/ML 3 ML VIAL SUBCUT SCH ×4 (08:20→21:31)
[2020-08-21] MEDS: FERROUS SULFATE 325 MG TABLET PO SCH (11:00)
[2020-08-21] MEDS: ASCORBIC ACID 500 MG TABLET PO SCH (11:00)
[2020-08-21] MEDS: CEFTRIAXONE 1 GM/D5W RTU 1 GM/50 ML RTUPB IV SCH (11:00)
[2020-08-21] MEDS: VITAMIN E (DL, ACETATE) 400 UNIT CAPSULE PO SCH (11:00)
[2020-08-21] MEDS: CYANOCOBALAMIN (VITAMIN B-12) 1,000 MCG TABLET PO SCH (11:00)
[2020-08-21] MEDS: HYDRALAZINE HCL 50 MG TABLET PO SCH ×2 (11:00→17:04)
[2020-08-21] MEDS: CALCITRIOL 0.25 MCG CAPSULE PO SCH (11:00)
[2020-08-21] MEDS: MAGNESIUM OXIDE 400 MG TABLET PO SCH (11:00)
[2020-08-21] MEDS: VANCOMYCIN HCL 750 MG in DEXTROSE 5%-WATER 250 ML IV SCH (17:04)
--- NOTE | 2020-08-21 17:18 | PDOC PROGRESS REPORT ---
Subjective Progress Note for:: 08/21/20 Subjective:: Patient denied recurrent fever but continue to experience chills. No chest pain, difficulty with breathing, nausea, vomiting, or abdominal pain. Reason For Visit: TOXIC ENCEPHALOPATHY,PROBABLE SEPSIS WITH RECURREN Physical Exam Vital Signs: Temp Pulse Resp BP Pulse Ox 98.6 F 101 H 16 138/68 H 94 08/21/20 10:58 08/21/20 10:58 08/21/20 10:58 08/21/20 10:58 08/21/20 10:58 Intake & Output 08/20/20 08/21/20 08/22/20 06:59 06:59 06:59 Intake Total 300 1070 Output Total 2400 Balance 300 1070 -2400 Weight 117.934 kg 120.2 kg 120.2 kg General appearance: PRESENT: no acute distress, morbidly obese Head exam: PRESENT: atraumatic, normocephalic Eye exam: PRESENT: conjunctiva pink. ABSENT: scleral icterus Respiratory exam: PRESENT: clear to auscultation juancarlos Cardiovascular exam: PRESENT: RRR, +S1, +S2. ABSENT: diastolic murmur, rubs, systolic murmur Vascular exam: ABSENT: pallor GI/Abdominal exam: PRESENT: normal bowel sounds, soft. ABSENT: distended, guarding, mass, organolmegaly, rebound, tenderness Extremities exam: ABSENT: pedal edema Neurological exam: PRESENT: alert, awake, oriented to person, oriented to place, oriented to time, oriented to situation, CN II-XII grossly intact. ABSENT: meme r sensory deficit Psychiatric exam: PRESENT: appropriate affect, normal mood. ABSENT: homicidal ideation, suicidal ideation Skin exam: PRESENT: dry, warm Results Laboratory Results: 08/21/20 04:58 08/21/20 04:58 08/21/20 08/21/20 04:58 04:58 WBC 4.9 RBC 3.22 L Hgb 10.1 L Hct 29.9 L MCV 93 MCH 31.3 MCHC 33.7 RDW 13.3 Plt Count 84 L Sodium 133.6 L Potassium 4.2 Chloride 101 Carbon Dioxide 20 L Anion Gap 13 BUN 49 H Creatinine 6.99 H Est GFR ( Amer) 7 L Glucose 180 H Calcium 8.5 Total Bilirubin 2.3 H AST 235 H Alkaline Phosphatase 305 H Total Protein 5.7 L Albumin 2.8 L 08/19/20 18:01 Troponin I < 0.012 Impressions: Chest X-Ray 08/19/20 18:41 IMPRESSION: NO ACUTE RADIOGRAPHIC FINDING IN THE CHEST. Head CT 08/19/20 18:42 IMPRESSION: No acute findings in the head. 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: with watermelon harvesting supervisor use Diabetes mellitus complication status: with kidney complications Diabetes mellitus complication detail: with chronic kidney disease Chronic kidney disease stage: on chronic dialysis Qualified Code(s): E11.22 - Type 2 diabetes mellitus with diabetic chronic kidney disease; N18.6 - End stage renal disease; Z79.4 - [facility] (current) use of insulin; Z99.2 - Dependence on renal dialysis Is this a current diagnosis for this admission?: Yes (5) Hypertension Qualifiers: Hypertension type: unspecified Qualified Code(s): I10 - Essential (primary) hypertension Is this a current diagnosis for this admission?: Yes (6) Morbid obesity with BMI of 40.0-44.9, adult Is this a current diagnosis for this admission?: Yes - Time Time Spent with patient: 25-34 minutes Level of Care: TELE Medications reviewed and adjusted accordingly: Yes Anticipated discharge: Home with Homehealth Anticipated DC Timeframe: within 72 hours - Inpatient Certification Based on my medical assessment, after consideration of the patient's comorbidities, presenting symptoms, or acuity I expect that the services needed warrant INPATIENT care.: Yes I certify that my determination is in accordance with my understanding of Medicare's requirements for reasonable and necessary INPATIENT services [42 CFR 412.3e].: Yes Medical Necessity: Significant Comorbidiites Make Outpatient Treatment Too Risky, Need Close Monitoring Due to Risk of Patient Decompensation, Need For Continuous Telemetry Monitoring, Need for IV Antibiotics, Risk of Complication if Not Cared For in Hospital, Risk of Diagnosis Which Will Require Inpatient Eval/Care/Monitoring Post Hospital Care: D/C Photostat Operator Helper Documentation - Plan Summary Plan Summary: Continue IV Rocephin and Vancomycin coverage. Maintain on all other current medication management.
[2020-08-21] MEDS ORDERED: VANCOMYCIN HCL 1,500 MG in DEXTROSE 5%-WATER 250 ML IV ONE (18:00)
[2020-08-21] MEDS: OXYCODONE-ACETAMINOPHEN 5-325 MG TABLET PO PRN (21:31)
[2020-08-21] MEDS: ATORVASTATIN CALCIUM 10 MG TABLET PO SCH (21:31)
[2020-08-22] MEDS: HEPARIN SOD (PORCINE) 5,000 UNIT/ML 1 ML VIAL SUBCUT SCH ×3 (05:13→21:28)
[2020-08-22] MEDS: PANTOPRAZOLE SODIUM 40 MG TABLET.DR PO SCH (05:13)
[2020-08-22] MEDS: INSULIN LISPRO 100 UNIT/ML 3 ML VIAL SUBCUT SCH ×4 (07:21→21:40)
--- NOTE | 2020-08-22 08:59 | PDOC PROGRESS REPORT ---
Subjective Progress Note for:: 08/21/20 Subjective:: I am seeing the patient during dialysis this morning. She is so well awake, communicative and back to her usual self. Her blood pressure is back elevated. She is asking me if she can go home today. Her dialysis is going well this morning. There is no sign of drainage over her right IJ PermCath. She complains of some pain over [place] place right forearm AV fistula. She denies any chest pains, shortness of breath, nausea, vomiting or diarrhea. However she admits that she does not have much of an appetite. She had a headache at the initiation of dialysis but it is now relieved by Tylenol. Reason For Visit: TOXIC ENCEPHALOPATHY,PROBABLE SEPSIS WITH RECURREN Physical Exam Vital Signs: Temp Pulse Resp BP Pulse Ox 99.7 F 106 H 18 155/74 H 96 08/21/20 04:16 08/21/20 07:00 08/20/20 23:01 08/21/20 04:16 08/21/20 04:16 Intake & Output 08/20/20 08/21/20 08/22/20 06:59 06:59 06:59 Intake Total 300 1070 Balance 300 1070 Weight 117.934 kg 120.2 kg Vitals during dialysis: Blood pressure 192/109, heart rate of 104, blood flow rate of 350 mL/min and dialysate flow of 800 mL/min. Exam: General appearance: PRESENT: no acute distress, cooperative, well-developed, well-nourished Head exam: PRESENT: atraumatic, normocephalic Eye exam: PRESENT: conjunctiva pink, PERRLA. ABSENT: scleral icterus Neck exam: ABSENT: JVD Respiratory exam: PRESENT: Diminished breath sounds. ABSENT: crackles, rales, rhonchi, unlabored, wheezes Cardiovascular exam: PRESENT: Regular rate rhythm -+S1, +S2. ABSENT: diastolic murmur, systolic murmur GI/Abdominal exam: PRESENT: normal bowel sounds, soft. ABSENT: guarding, mass, tenderness Extremities exam: Right leg trace edema, right forearm AV fistula with good bruit Neurological exam: PRESENT: alert, awake, oriented to person, place and time. Skin exam: PRESENT: dry, warm, Cardiovascular exam: PRESENT: +S1, +S2 GI/Abdominal exam: PRESENT: normal bowel sounds, soft. ABSENT: organomegaly, tenderness Results Laboratory Results: 08/21/20 04:58 08/21/20 04:58 08/20/20 08/21/20 08/21/20 08:55 04:58 04:58 WBC 4.9 RBC 3.22 L Hgb 10.1 L Hct 29.9 L MCV 93 MCH 31.3 MCHC 33.7 RDW 13.3 Plt Count 84 L Sodium 133.9 L 133.6 L Potassium 4.6 4.2 Chloride 101 101 Carbon Dioxide 20 L 20 L Anion Gap 13 13 BUN 42 H 49 H Creatinine 6.11 H 6.99 H Est GFR ( Amer) 9 L 7 L Glucose 162 H 180 H Calcium 8.0 L 8.5 Total Bilirubin 2.3 H AST 235 H Alkaline Phosphatase 305 H Total Protein 5.7 L Albumin 2.8 L 08/19/20 18:01 Troponin I < 0.012 Impressions: Chest X-Ray 08/19/20 18:41 IMPRESSION: NO ACUTE RADIOGRAPHIC FINDING IN THE CHEST. Head CT 08/19/20 18:42 IMPRESSION: No acute findings in the head. Assessment & Plan - Diagnosis (1) ESRD on dialysis Is this a current diagnosis for this admission?: Yes Plan: We will do dialysis today for 3 hours, using the patient's right IJ PermCath, with 2 potassium bath, blood flow rate of 350 mL per minute, dialysate flow rate of 800 mL per minute, ultrafiltration 2 L as tolerated, no heparin and no Procrit/Retacrit. Patient is currently being monitored throughout dialysis treatment. (2) Toxic metabolic encephalopathy Is this a current diagnosis for this admission?: Yes Plan: Likely secondary to narcotics given during vascular procedure. Mental status currently back to baseline. (3) Fever Qualifiers: Fever type: unspecified Qualified Code(s): R50.9 - Fever, unspecified Is this a current diagnosis for this admission?: Yes Plan: On empiric treatment with ceftriaxone and vancomycin. Blood cultures so far negative. Right IJ catheter is looking good. If blood culture remains negative for 72 hours and the patient's symptoms resolve including fever and chills, patient may be able to discharge home with oral antibiotics. (4) Hypertension Qualifiers: Hypertension type: unspecified Qualified Code(s): I10 - Essential (primary) hypertension Is this a current diagnosis for this admission?: Yes Plan: Blood pressure is back elevated. Resume home blood pressure medications. (5) Diabetes mellitus Qualifiers: Diabetes mellitus type: type 2 Diabetes mellitus fdc insulin use: w ith fdc use Diabetes mellitus complication status: with kidney comp lications Diabetes mellitus complication detail: with chronic kidney disease Chronic kidney disease stage: on chronic dialysis Qualified Code(s): E11.22 - Type 2 diabetes mellitus with diabetic chronic kidney disease; N18.6 - End stage renal disease; Z79.4 - [facility] (current) use of insulin; Z99.2 - Dependence on renal dialysis Is this a current diagnosis for this admission?: Yes (6) Elevated liver enzymes Is this a current diagnosis for this admission?: Yes Plan: This needs to be repeated and if it is persistently elevated needs further work- up. Will defer this to PCP. - Time Time with patient: 15-25 minutes
[2020-08-22] MEDS: FERROUS SULFATE 325 MG TABLET PO SCH (10:53)
[2020-08-22] MEDS: CALCITRIOL 0.25 MCG CAPSULE PO SCH (10:53)
[2020-08-22] MEDS: ASCORBIC ACID 500 MG TABLET PO SCH (10:53)
[2020-08-22] MEDS: MAGNESIUM OXIDE 400 MG TABLET PO SCH (10:54)
[2020-08-22] MEDS: HYDRALAZINE HCL 50 MG TABLET PO SCH ×2 (10:54→17:18)
[2020-08-22] MEDS: CYANOCOBALAMIN (VITAMIN B-12) 1,000 MCG TABLET PO SCH (10:54)
[2020-08-22] MEDS: CEFTRIAXONE 1 GM/D5W RTU 1 GM/50 ML RTUPB IV SCH (10:59)
[2020-08-22 11:12] LABS: ALBUMIN 3.7 g/dL (3.5-5.0); ALKALINE PHOSPHATASE 526 U/L (38-126); ANION GAP 15 (5-19); ASPARTATE AMINO TRANSFERASE 111 U/L (14-36); BILIRUBIN,DIRECT 1.9 mg/dL (0.0-0.4); BLOOD UREA NITROGEN 33 mg/dL (7-20); CALCIUM 9.1 mg/dL (8.4-10.2); CARBON DIOXIDE 24 mmol/L (22-30); CHLORIDE 101 mmol/L (98-107); GLUCOSE 201 mg/dL (75-110); POTASSIUM 4.4 mmol/L (3.6-5.0); TOTAL PROTEIN 7.2 g/dL (6.3-8.2)
[2020-08-22] MEDS: CLONIDINE HCL 0.1 MG TABLET PO SCH ×2 (14:29→21:41)
[2020-08-22] MEDS: VITAMIN E (DL, ACETATE) 400 UNIT CAPSULE PO SCH (17:18)
--- NOTE | 2020-08-22 19:02 | PDOC PROGRESS REPORT ---
Subjective Progress Note for:: 08/22/20 Subjective:: Patient was seen by the bedside, she was admitted for the management of altered mental status the apparent cause was not clear on antibiotic empirically, she is more alert Reason For Visit: TOXIC ENCEPHALOPATHY,PROBABLE SEPSIS WITH RECURREN Physical Exam Vital Signs: Temp Pulse Resp BP Pulse Ox 98.3 F 90 17 152/55 H 97 08/22/20 16:02 08/22/20 16:02 08/22/20 16:02 08/22/20 16:02 08/22/20 16:02 Intake & Output 08/21/20 08/22/20 08/23/20 06:59 06:59 06:59 Intake Total 1070 560 170 Output Total 2400 Balance 1070 -1840 170 Weight 120.2 kg 121.2 kg General appearance: PRESENT: no acute distress Eye exam: PRESENT: PERRLA Respiratory exam: PRESENT: clear to auscultation juancarlos Cardiovascular exam: PRESENT: +S1, +S2 GI/Abdominal exam: PRESENT: soft Results Laboratory Results: 08/21/20 04:58 08/22/20 10:44 08/22/20 10:44 Sodium 139.5 Potassium 4.4 Chloride 101 Carbon Dioxide 24 Anion Gap 15 BUN 33 H Creatinine 5.08 H Est GFR ( Amer) 11 L Glucose 201 H Calcium 9.1 Total Bilirubin 2.0 H AST 111 H Alkaline Phosphatase 526 H Total Protein 7.2 Albumin 3.7 08/19/20 18:01 Troponin I < 0.012 Impressions: Chest X-Ray 08/19/20 18:41 IMPRESSION: NO ACUTE RADIOGRAPHIC FINDING IN THE CHEST. Head CT 08/19/20 18:42 IMPRESSION: No acute findings in the head. Assessment & Plan - Diagnosis (1) Toxic metabolic encephalopathy Is this a current diagnosis for this admission?: Yes (2) ESRD on dialysis Is this a current diagnosis for this admission?: Yes - Time Time Spent with patient: 25-34 minutes Level of Care: IMCU Smoking Cessation Education: over 10 minutes Medications reviewed and adjusted accordingly: Yes - Plan Summary Plan Summary: She will continue present IV antibiotic
[2020-08-22] MEDS: OXYCODONE-ACETAMINOPHEN 5-325 MG TABLET PO PRN (21:41)
[2020-08-22] MEDS: ATORVASTATIN CALCIUM 10 MG TABLET PO SCH (21:41)
[2020-08-23] MEDS: HEPARIN SOD (PORCINE) 5,000 UNIT/ML 1 ML VIAL SUBCUT SCH ×3 (05:57→21:28)
[2020-08-23] MEDS: PANTOPRAZOLE SODIUM 40 MG TABLET.DR PO SCH (05:58)
[2020-08-23] MEDS: CLONIDINE HCL 0.1 MG TABLET PO SCH ×3 (06:05→21:34)
[2020-08-23] MEDS: INSULIN LISPRO 100 UNIT/ML 3 ML VIAL SUBCUT SCH ×4 (07:54→21:35)
[2020-08-23] MEDS ORDERED: INSULIN GLARGINE,HUM.REC.ANLOG 1,000 UNIT/10 ML VIAL (PYX) SUBCUT SCH (08:00)
[2020-08-23] MEDS: CALCITRIOL 0.25 MCG CAPSULE PO SCH (10:46)
[2020-08-23] MEDS: MAGNESIUM OXIDE 400 MG TABLET PO SCH (10:47)
[2020-08-23] MEDS: ASCORBIC ACID 500 MG TABLET PO SCH (10:47)
[2020-08-23] MEDS: CYANOCOBALAMIN (VITAMIN B-12) 1,000 MCG TABLET PO SCH (10:47)
[2020-08-23] MEDS: HYDRALAZINE HCL 50 MG TABLET PO SCH ×2 (10:47→17:50)
[2020-08-23] MEDS: FERROUS SULFATE 325 MG TABLET PO SCH (10:47)
[2020-08-23] MEDS: INSULIN GLARGINE,HUM.REC.ANLOG 1,000 UNIT/10 ML VIAL SUBCUT SCH (10:48)
[2020-08-23] MEDS: CEFTRIAXONE 1 GM/D5W RTU 1 GM/50 ML RTUPB IV SCH (10:48)
[2020-08-23] MEDS ORDERED: ONDANSETRON HCL INJ/PF 4 MG/2 ML SDV IV PRN ×2 (14:57→17:20)
--- NOTE | 2020-08-23 16:25 | PDOC PROGRESS REPORT ---
Subjective Progress Note for:: 08/23/20 Subjective:: Patient seen by the bedside, complain of nausea Reason For Visit: TOXIC ENCEPHALOPATHY,PROBABLE SEPSIS WITH RECURREN Physical Exam Vital Signs: Temp Pulse Resp BP Pulse Ox 97.9 F 82 19 158/69 H 98 08/23/20 12:17 08/23/20 12:17 08/23/20 12:17 08/23/20 12:17 08/23/20 12:17 Intake & Output 08/22/20 08/23/20 08/24/20 06:59 06:59 06:59 Intake Total 560 790 50 Output Total 2400 0 Balance -1840 790 50 Weight 121.2 kg 121.4 kg General appearance: PRESENT: no acute distress Eye exam: PRESENT: PERRLA Respiratory exam: PRESENT: clear to auscultation juancarlos Cardiovascular exam: PRESENT: +S1, +S2 GI/Abdominal exam: PRESENT: soft Neurological exam: PRESENT: alert Results Laboratory Results: 08/21/20 04:58 08/22/20 10:44 08/19/20 18:01 Troponin I < 0.012 Impressions: Chest X-Ray 08/19/20 18:41 IMPRESSION: NO ACUTE RADIOGRAPHIC FINDING IN THE CHEST. Head CT 08/19/20 18:42 IMPRESSION: No acute findings in the head. Assessment & Plan - Diagnosis (1) Toxic metabolic encephalopathy Is this a current diagnosis for this admission?: Yes (2) ESRD on dialysis Is this a current diagnosis for this admission?: Yes - Time Time Spent with patient: 25-34 minutes Level of Care: MEDICAL - Plan Summary Plan Summary: Continue present treatment strategy, Zofran for nausea
[2020-08-23] MEDS: VITAMIN E (DL, ACETATE) 400 UNIT CAPSULE PO SCH (17:49)
[2020-08-23] MEDS: ONDANSETRON HCL INJ/PF 4 MG/2 ML SDV IV ONE ×2 (20:20→21:34)
[2020-08-23] MEDS: ATORVASTATIN CALCIUM 10 MG TABLET PO SCH (21:34)
[2020-08-23] MEDS: OXYCODONE-ACETAMINOPHEN 5-325 MG TABLET PO PRN (21:34)
[2020-08-24] MEDS ORDERED: NORMAL SALINE 1000 ML 1,000 ML IV PRN (05:00)
[2020-08-24] MEDS ORDERED: EPOETIN ALFA-EPBX 2,000 UNIT, EPOETIN ALFA-EPBX 3,000 UNIT in SYRINGE, DISPOSABLE, 1 EACH IV PRN (05:00)
[2020-08-24] MEDS ORDERED: HEPARIN SOD (PORCINE) 1,000 UNIT/ML 10 ML VIAL IV PRN (05:00)
[2020-08-24] MEDS: HEPARIN SOD (PORCINE) 5,000 UNIT/ML 1 ML VIAL SUBCUT SCH ×3 (05:30→21:05)
[2020-08-24] MEDS: PANTOPRAZOLE SODIUM 40 MG TABLET.DR PO SCH (05:30)
[2020-08-24] MEDS: ONDANSETRON HCL INJ/PF 4 MG/2 ML SDV IV PRN ×3 (06:43→20:50)
[2020-08-24] MEDS: CLONIDINE HCL 0.1 MG TABLET PO SCH ×3 (06:49→21:05)
[2020-08-24] MEDS: INSULIN LISPRO 100 UNIT/ML 3 ML VIAL SUBCUT SCH ×4 (07:00→21:04)
[2020-08-24 07:21] LABS: ABSOLUTE EOSINOPHILS # (AUTO) 0.4 10^3/uL (0.0-0.6); ABSOLUTE LYMPHOCYTES (AUTO) 1.2 10^3/uL (0.5-4.7); ABSOLUTE MONOCYTES (AUTO) 0.4 10^3/uL (0.1-1.4); ABSOLUTE NEUT (AUTO) 1.3 10^3/uL (1.7-8.2); BASOPHILS % (AUTO) 0.8 % (0-2); EOSINOPHILS % (AUTO) 12.6 % (0-6); HEMATOCRIT 31.5 % (36.0-47.0); HEMOGLOBIN 10.4 g/dL (12.0-15.5); LYMPHOCYTES % (AUTO) 35.6 % (13-45); MEAN CORPUSCULAR HEMOGLOBIN 30.5 pg (27.0-33.4); MEAN CORPUSCULAR HGB CONC 33.2 g/dL (32.0-36.0); MEAN CORPUSCULAR VOLUME 92 fl (80-97); PLATELET COUNT 116 10^3/uL (150-450); RED BLOOD COUNT 3.42 10^6/uL (3.72-5.28); RED CELL DISTRIBUTION WIDTH 13.3 % (11.5-14.0); TOTAL CELLS COUNTED % (AUTO) 100 %; WHITE BLOOD COUNT 3.3 10^3/uL (4.0-10.5)
[2020-08-24 09:06] LABS: ANION GAP 13 (5-19); BLOOD UREA NITROGEN 43 mg/dL (7-20); CARBON DIOXIDE 24 mmol/L (22-30); CHLORIDE 101 mmol/L (98-107); GLUCOSE 179 mg/dL (75-110); PHOSPHORUS 4.6 mg/dL (2.5-4.5)
[2020-08-24 09:23] LABS: POTASSIUM 4.6 mmol/L (3.6-5.0)
[2020-08-24] MEDS: HYDRALAZINE HCL 50 MG TABLET PO SCH ×2 (09:40→17:13)
[2020-08-24] MEDS: FERROUS SULFATE 325 MG TABLET PO SCH (09:40)
[2020-08-24] MEDS: VITAMIN E (DL, ACETATE) 400 UNIT CAPSULE PO SCH (10:40)
[2020-08-24] MEDS: CYANOCOBALAMIN (VITAMIN B-12) 1,000 MCG TABLET PO SCH (10:40)
[2020-08-24] MEDS: INSULIN GLARGINE,HUM.REC.ANLOG 1,000 UNIT/10 ML VIAL SUBCUT SCH (10:40)
[2020-08-24] MEDS: ASCORBIC ACID 500 MG TABLET PO SCH (10:40)
[2020-08-24] MEDS: MAGNESIUM OXIDE 400 MG TABLET PO SCH (10:40)
[2020-08-24] MEDS: CALCITRIOL 0.25 MCG CAPSULE PO SCH (10:40)
[2020-08-24] MEDS: CEFTRIAXONE 1 GM/D5W RTU 1 GM/50 ML RTUPB IV SCH (10:44)
[2020-08-24 12:41] LABS: ALBUMIN 3.3 g/dL (3.5-5.0); ALKALINE PHOSPHATASE 560 U/L (38-126); ASPARTATE AMINO TRANSFERASE 88 U/L (14-36); BILIRUBIN,DIRECT 0.9 mg/dL (0.0-0.4); BILIRUBIN,TOTAL 0.9 mg/dL (0.2-1.3); TOTAL PROTEIN 6.3 g/dL (6.3-8.2)
--- NOTE | 2020-08-24 14:38 | RADIOLOGY REPORT (SQ) ---
EXAM DESCRIPTION: U/S ABDOMEN COMPLETE W/O DOP IMAGES COMPLETED DATE/TIME: 08/24/2020 2:11 pm REASON FOR STUDY: High LFT, nausea COMPARISON: 12/15/2017 TECHNIQUE: Dynamic and static grayscale images acquired of the abdomen and recorded on PACS. Gorgeo lizette selected color Doppler and spectral images recorded. Note: Study does not meet criteria for complete doppler/duplex scan LIMITATIONS: None. FINDINGS: PANCREAS: No masses. Visualized pancreatic duct normal caliber. LIVER: Mild hepatomegaly. Normal echotexture. No masses. LIVER VASCULATURE: Normal directional flow of the main portal vein and hepatic veins. GALLBLADDER: Surgically absent. ULTRASOUND-DETECTED VELA'S SIGN: Not applicable. INTRAHEPATIC DUCTS AND COMMON DUCT: CBD and intrahepatic ducts normal caliber. No filling defects. INFERIOR VENA CAVA: Normal flow. AORTA: No aneurysm. RIGHT KIDNEY: Normal size, 9 cm. Normal echogenicity. No solid or suspicious masses. There are some echogenic foci suggesting intrarenal calculi. No calcifications. LEFT KIDNEY: Normal size, 10 cm. Normal echogenicity. No solid or suspicious masses. No hydron ephrosis. No calcifications. SPLEEN: Normal size, 10 cm. No solid masses. PERITONEAL AND PLEURAL SPACES: No ascites or effusions. OTHER: No other significant finding. IMPRESSION: Mild hepatomegaly with no significant steatosis. Right intrarenal calculi. No other si gnificant findings in the abdomen. TECHNICAL DOCUMENTATION: JOB ID: [id number] 2010 [employer]- All Rights Reserved Reading location - IP/workstation name: [email or web address]
[2020-08-24] MEDS: VANCOMYCIN HCL 750 MG in DEXTROSE 5%-WATER 250 ML IV SCH (17:11)
[2020-08-24] MEDS: OXYCODONE-ACETAMINOPHEN 5-325 MG TABLET PO PRN (21:14)
[2020-08-25] MEDS: HEPARIN SOD (PORCINE) 5,000 UNIT/ML 1 ML VIAL SUBCUT SCH (05:49)
[2020-08-25] MEDS: CLONIDINE HCL 0.1 MG TABLET PO SCH (05:54)
[2020-08-25] MEDS: PANTOPRAZOLE SODIUM 40 MG TABLET.DR PO SCH (05:55)
[2020-08-25] MEDS: ONDANSETRON HCL INJ/PF 4 MG/2 ML SDV IV PRN (06:00)
--- NOTE | 2020-08-25 09:31 | PDOC PROGRESS REPORT ---
Subjective Progress Note for:: 08/24/20 Subjective:: I am seeing the patient during dialysis this morning. She had nausea this morning and was given Zofran 8 mg IV and that eases it up. However she is still dry heaving at the moment. Blood pressure slightly high. She admits poor appetite. However despite the symptoms she keeps asking when she can go home. Reason For Visit: TOXIC ENCEPHALOPATHY,PROBABLE SEPSIS WITH RECURREN Physical Exam Vital Signs: Temp Pulse Resp BP Pulse Ox 97.7 F 70 18 150/94 H 98 08/24/20 05:22 08/24/20 05:22 08/24/20 05:22 08/24/20 05:22 08/24/20 05:22 Intake & Output 08/23/20 08/24/20 08/25/20 06:59 06:59 06:59 Intake Total 790 590 Output Total 0 0 Balance 790 590 Weight 121.4 kg 120.4 kg Vitals during dialysis: Blood pressure 174/87, heart rate of 69, blood flow rate of 350 mL/min and dialysate flow rate of 800 mL/min. Exam: General appearance: PRESENT: no acute distress, cooperative, well-developed, well-nourished Head exam: PRESENT: atraumatic, normocephalic Eye exam: PRESENT: conjunctiva pink, PERRLA. ABSENT: scleral icterus Neck exam: ABSENT: JVD Respiratory exam: PRESENT: Normal breath sounds. ABSENT: crackles, rales, rhonchi, unlabored, wheezes Cardiovascular exam: PRESENT: Regular rate rhythm -+S1, +S2. ABSENT: diastolic murmur, systolic murmur GI/Abdominal exam: PRESENT: normal bowel sounds, soft. ABSENT: guarding, mass, tenderness Extremities exam: Grade 1 bilateral lower extremity pitting edema Neurological exam: PRESENT: alert, awake, oriented to person, place and time. Skin exam: PRESENT: dry, warm, Cardiovascular exam: PRESENT: +S1, +S2 GI/Abdominal exam: PRESENT: normal bowel sounds, soft. ABSENT: organomegaly, tenderness Results Laboratory Results: 08/24/20 07:10 08/24/20 07:10 WBC 3.3 L RBC 3.42 L Hgb 10.4 L Hct 31.5 L MCV 92 MCH 30.5 MCHC 33.2 RDW 13.3 Plt Count 116 L Seg Neutrophils % 38.0 L 09/23/20 18:01 Troponin I < 0.012 Impressions: Chest X-Ray 08/19/20 18:41 IMPRESSION: NO ACUTE RADIOGRAPHIC FINDING IN THE CHEST. Head CT 08/19/20 18:42 IMPRESSION: No acute findings in the head. Assessment & Plan - Diagnosis (1) ESRD on dialysis Is this a current diagnosis for this admission?: Yes Plan: We will do dialysis today for 3 hours, using the patient's PermCath, with 2 potassium bath, blood flow rate of 350 mL per minute, dialysate flow rate of 800 mL per minute, ultrafiltration 2 L as tolerated, no heparin and no Procrit. Patient is being monitored. Encouraged to try to finish her treatment despite the nausea and encourage patient to do dialysis probably can help more than anything. (2) Toxic metabolic encephalopathy Is this a current diagnosis for this admission?: Yes Plan: Likely secondary to narcotics given during vascular procedure. Mental status currently back to baseline. (3) Fever Qualifiers: Fever type: unspecified Qualified Code(s): R50.9 - Fever, unspecified Is this a current diagnosis for this admission?: Yes Plan: On empiric treatment with ceftriaxone and vancomycin. Blood cultures so far negative. Right IJ catheter is looking good. If blood culture remains negative for 72 hours and the patient's symptoms resolve including fever and chills, patient may be able to discharge home with oral antibiotics. (4) Hypertension Qualifiers: Hypertension type: unspecified Qualified Code(s): I10 - Essential (primary) hypertension Is this a current diagnosis for this admission?: Yes Plan: Blood pressure is back elevated. Resume home blood pressure medications. 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 Will defer this to PCP. We will add liver function tests from blood work this morning. Will order an abdominal ultrasound. - Time Time with patient: 15-25 minutes
--- NOTE | 2020-08-25 09:58 | PDOC PROGRESS REPORT ---
Subjective Progress Note for:: 08/24/20 Subjective:: Patient denied recurrent nausea at the time of my evaluation. No vomiting or abdominal pain. Tolerating oral feeding. No fever or chills. No chest pain or difficulty with breathing. Reason For Visit: TOXIC ENCEPHALOPATHY,PROBABLE SEPSIS WITH RECURREN Physical Exam Vital Signs: Temp Pulse Resp BP Pulse Ox 97.6 F 78 18 188/77 H 100 08/24/20 15:58 08/24/20 15:58 08/24/20 15:58 08/24/20 15:58 08/24/20 15:58 Intake & Output 08/23/20 08/24/20 08/25/20 06:59 06:59 06:59 Intake Total 790 590 490 Output Total 0 0 2200 Balance 790 590 -1710 Weight 121.4 kg 120.4 kg Physical Exam: General appearance: PRESENT: no acute distress, morbidly obese Head exam: PRESENT: atraumatic, normocephalic Eye exam: PRESENT: conjunctiva pink. ABSENT: pallor, sclera icterus Respiratory exam: PRESENT: clear to auscultation juancarlos Cardiovascular exam: PRESENT: RRR, +S1, +S2. ABSENT: diastolic murmur, rubs, systolic murmur GI/Abdominal exam: PRESENT: normal bowel sounds, soft. ABSENT: distended, guarding, mass, organomegaly, rebound, tenderness Extremities exam: ABSENT: pedal edema Neurological exam: PRESENT: alert, awake, oriented to person, oriented to place, oriented to time, oriented to situation, CN II-XII grossly intact. ABSENT: motor sensory deficit Psychiatric exam: PRESENT: appropriate affect, normal mood. ABSENT: homicidal ideation, suicidal ideation Skin exam: PRESENT: dry, warm Results Laboratory Results: 08/24/20 07:10 08/24/20 07:10 08/24/20 08/24/20 08/24/20 07:10 07:10 07:10 WBC 3.3 L RBC 3.42 L Hgb 10.4 L Hct 31.5 L MCV 92 MCH 30.5 MCHC 33.2 RDW 13.3 Plt Count 116 L Seg Neutrophils % 38.0 L Sodium 137.7 Potassium 4.6 Chloride 101 Carbon Dioxide 24 Anion Gap 13 BUN 43 H Creatinine 5.61 H Est GFR ( Amer) 9 L Glucose 179 H Calcium 9.0 Phosphorus 4.6 H Total Bilirubin 0.9 AST 88 H Alkaline Phosphatase 560 H Total Protein 6.3 Albumin 3.3 L 08/19/20 18:01 Troponin I < 0.012 Impressions: Chest X-Ray 08/19/20 18:41 IMPRESSION: NO ACUTE RADIOGRAPHIC FINDING IN THE CHEST. Head CT 08/19/20 18:42 IMPRESSION: No acute findings in the head. Abdomen Ultrasound 08/24/20 00:00 IMPRESSION: Mild hepatomegaly with no significant steatosis. Right intrarenal calculi. No other significant findings in the abdomen. 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: with [facility] use Diabetes mellitus complication status: with kidney complications Diabetes mellitus complication detail: with chronic kidney disease Chronic kidney disease stage: on chronic dialysis Qualified Code(s): E11.22 - Type 2 diabetes mellitus with diabetic chronic kidney disease; N18.6 - End stage renal disease; Z79.4 - watermaster (current) use of insulin; Z99.2 - Dependence on renal dialysis Is this a current diagnosis for this admission?: Yes (5) Hypertension Qualifiers: Hypertension type: unspecified Qualified Code(s): I10 - Essential (primary) hypertension Is this a current diagnosis for this admission?: Yes (6) Elevated liver enzymes Is this a current diagnosis for this admission?: Yes Plan: Probably related to her statin usage. Obtain GTT level to evaluate related source of her Alkaline Phosphatase elevation. Her US did not suggest any ductal obstruction. (7) Morbid obesity with BMI of 40.0-44.9, adult Is this a current diagnosis for this admission?: Yes - Time Time Spent with patient: 25-34 minutes Level of Care: TELE Medications reviewed and adjusted accordingly: Yes Anticipated discharge: Home Anticipated DC Timeframe: within 72 hours - Inpatient Certification Based on my medical assessment, after consideration of the patient's comorbidities, presenting symptoms, or acuity I expect that the services needed warrant INPATIENT care.: Yes I certify that my determination is in accordance with my understanding of Medicare's requirements for reasonable and necessary INPATIENT services [42 CFR 412.3e].: Yes Medical Necessity: Significant Comorbidiites Make Outpatient Treatment Too Risky, Need Close Monitoring Due to Risk of Patient Decompensation, Need For Continuous Telemetry Monitoring, Need for IV Antibiotics, Risk of Complication if Not Cared For in Hospital, Risk of Diagnosis Which Will Require Inpatient Eval/Care/Monitoring 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 Obtain GTT level. Continue al other current medication management. Possible D/C tomorrow if her clinical status continue to improve.
[2020-08-25] MEDS: INSULIN LISPRO 100 UNIT/ML 3 ML VIAL SUBCUT SCH (11:03)
[2020-08-25] MEDS: INSULIN GLARGINE,HUM.REC.ANLOG 1,000 UNIT/10 ML VIAL SUBCUT SCH (11:09)
[2020-08-25] MEDS: VITAMIN E (DL, ACETATE) 400 UNIT CAPSULE PO SCH (11:12)
[2020-08-25] MEDS: CALCITRIOL 0.25 MCG CAPSULE PO SCH (11:15)
[2020-08-25] MEDS: FERROUS SULFATE 325 MG TABLET PO SCH (11:19)
[2020-08-25] MEDS: MAGNESIUM OXIDE 400 MG TABLET PO SCH (11:20)
[2020-08-25] MEDS: ASCORBIC ACID 500 MG TABLET PO SCH (11:21)
[2020-08-25] MEDS: CYANOCOBALAMIN (VITAMIN B-12) 1,000 MCG TABLET PO SCH (11:21)
[2020-08-25] MEDS: HYDRALAZINE HCL 50 MG TABLET PO SCH (11:21)
[2020-08-25] MEDS: CEFTRIAXONE 1 GM/D5W RTU 1 GM/50 ML RTUPB IV SCH (11:24)
[2020-08-25 12:42] VITALS: BP 154/76
--- NOTE | 2020-08-25 17:46 | Left Against Medical Advice ---
Against Medical Advice Admission Date/Time: 08/20/20 17:32 Primary Care Provider: AZALIA FUENTES Date of Patient Emigration: 08/25/20 - Diagnosis: (1) Toxic metabolic encephalopathy Is this a current diagnosis for this admission?: Yes (2) Probable sepsis Is this a current diagnosis for this admission?: Yes (3) ESRD on dialysis Is this a current diagnosis for this admission?: Yes (4) Diabetes mellitus Is this a current diagnosis for this admission?: Yes (5) Hypertension Is this a current diagnosis for this admission?: Yes (6) Elevated liver enzymes Is this a current diagnosis for this admission?: Yes (7) Morbid obesity with BMI of 40.0-44.9, adult Is this a current diagnosis for this admission?: Yes - Summary: Summary: Please see Admission and Progress Notes as well. DANIEL BLANC is a 60 F, who LEFT AGAINST MEDICAL ADVICE. The Patient was admitted on 08/20/20 17:32. Patient admitted for altered mental status with toxic encephalopathy must likely due opiate administration during her recent vascular procedure. She demonstrated elevated temperature and diaphoresis before presenting to the ED and while on admission with concern about possible sepsis. Her blood culture was no growth after five days of incubation. She was on IV Rocephin and Vancomycin at dialysis. There was concern about her abnormal liver enzymes with possible contribution from her statin therapy. She was taken off stain therapy since last clinical evaluation by me. She left the hospital AMA earlier today. She will be given 30 days to seek another PCP for her future medical care. She is discharged from my service and practice.
[2020-08-26] MEDS ORDERED: HEPARIN SOD (PORCINE) 1,000 UNIT/ML 10 ML VIAL IV PRN (05:00)
[2020-08-26] MEDS ORDERED: NORMAL SALINE 1000 ML 1,000 ML IV PRN (05:00)
== END 2020-08-25 12:28 | disposition left against medical advice (07) | DRG 91 ==
LOC: ER 17:53 → EH 21:15 → 4W 23:45 → OBSVTOIN 08-20 17:32 → 4N 08-21 19:11
PROVIDERS: ADMIT Internal Medicine Geriatric Medicine; ATTEND Internal Medicine Geriatric Medicine
PROC: 5A1D70Z Performance of Urinary Filtration, Intermittent, Less than 6 Hours Per Day (ICD-10-PCS; principal; 2020-08-21)
DX: G92 Toxic encephalopathy (principal); N18.6 End stage renal disease; I12.0 Hypertensive chronic kidney disease with stage 5 chronic kidney disease or end stage renal disease; Z68.41 Body mass index [BMI] 40.0-44.9, adult; E11.22 Type 2 diabetes mellitus with diabetic chronic kidney disease; E66.01 Morbid (severe) obesity due to excess calories; T40.605A Adverse effect of unspecified narcotics, initial encounter; Y92.239 Unspecified place in hospital as the place of occurrence of the external cause; E78.5 Hyperlipidemia, unspecified; F32.9 Major depressive disorder, single episode, unspecified; D63.1 Anemia in chronic kidney disease; R74.8 Abnormal levels of other serum enzymes; E78.00 Pure hypercholesterolemia, unspecified; Z99.2 Dependence on renal dialysis; Z79.4 Long term (current) use of insulin; Z79.899 Other long term (current) drug therapy; Z87.891 Personal history of nicotine dependence
CPT/HCPCS: 36415; 70450; 71045; 76700; 80048; 80053; 80076; 80202; 81001; 82140; 82803; 82962; 82977; 83605; 84100; 84484; 85025; 85027; 85610; 87040; 96374; 96376; 99291; G0378; J0696; J1170; J1644; J1815; J2310; J2405; J3370; J3490; J7030; J7050; J7060

== ENCOUNTER 2020-09-11 13:09 | Day surgery (SDC) | payer BC ==
[2020-09-11] MEDS ORDERED: PROPOFOL INJ 200 MG/20 ML VIAL IV ONE (13:58)
--- NOTE | 2020-09-11 14:37 | Operative Report ---
Operative Report DATE OF SURGERY: 09/11/20 Operative Report: Pre-op diagnosis: Change in bowel habit and melena Post-op diagnosis: 1. Sigmoid diverticulum 2. Internal hemorrhoids Surgery: Colonoscopy Medications: As per anesthesia Tissue removed: None Procedure: After informed consent obtained from patient, deep sedation was achieved. A digital rectal examination was performed and this was unremarkable. The colonoscope was inserted into the rectum and advanced to the cecum. The appendiceal orifice and the terminal ileum were both identified. The mucosa was examined into details as the colonoscope was slowly pulled out of the patient. The endoscope was retroflexed in the rectum. Patient tolerated the procedure well. Findings Cecum: Normal Ascending colon: Normal Transverse colon: Normal Descending colon: Normal Sigmoid colon: A single diverticulum was identified Rectum: Normal except for internal hemorrhoids Plan: High-fiber diet. Repeat colonoscopy in 10 years OPERATION: .
[2020-09-11 15:41] VITALS: BP 154/87
== END 2020-09-11 15:42 | disposition home or self-care (01) ==
LOC: END 13:09
PROVIDERS: ATTEND Internal Medicine Gastroenterology
DX: K57.30 Diverticulosis of large intestine without perforation or abscess without bleeding (principal); K64.8 Other hemorrhoids; I12.0 Hypertensive chronic kidney disease with stage 5 chronic kidney disease or end stage renal disease; E11.22 Type 2 diabetes mellitus with diabetic chronic kidney disease; N18.6 End stage renal disease; D63.1 Anemia in chronic kidney disease; E66.9 Obesity, unspecified; Z79.4 Long term (current) use of insulin; Z79.899 Other long term (current) drug therapy; Z86.010 Personal history of colon polyps; Z98.84 Bariatric surgery status; Z90.49 Acquired absence of other specified parts of digestive tract
CPT/HCPCS: 45378; 82962; 00811; J2704; 811